=== PATIENT | female | born 1940 | race Caucasian/White ===

== ENCOUNTER → 2021-05-07 | Outpatient (CLI) | payer MEDICARE ==
--- NOTE | 2021-05-07 17:22 | Diagnostic Imaging Report ---
PROCEDURE: US Venous Lower Ext Harman. TECHNIQUE: Multiple real-time grayscale images were obtained over the lower extremities in various projections, bilaterally. Additional duplex Doppler and color Doppler images were also obtained. INDICATION: Elevated D-dimer, deep venous thrombosis. COMPARISON: None available. FINDINGS: Examination is severely limited secondary to patient body habitus and patient motion throughout the exam. Within the limits of the exam, there is normal flow, compression, and augmentation within the visualized deep venous structures of the bilateral lower extremities. A prominent focal fluid collection is noted within the right popliteal fossa measuring 11.6 x 4.6 x 2.8 cm without internal vascularity. IMPRESSION: No evidence of deep venous thrombosis within the bilateral lower extremities within the limits of the exam, though examination is significantly limited. 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 Dictated by: Dictated on workstation # [id number]
== END ==
LOC: RAD 16:28
PROVIDERS: ATTEND Nurse Practitioner Family
DX: M71.21 Synovial cyst of popliteal space [Baker], right knee (principal); R79.1 Abnormal coagulation profile
CPT/HCPCS: 93970

== ENCOUNTER 2021-05-30 15:00 | Emergency (ER) | payer MEDICARE ==
[2021-05-30] MEDS ORDERED: RT-ALBUTEROL/IPRATROPIUM 3 ML (DUONEB) VIAL INH ONE (15:45)
--- NOTE | 2021-05-30 15:50 | ED Respiratory ---
General Chief Complaint: Respiratory Problems Stated Complaint: POST COVID,RESP FAILURE Source: patient, EMS, [facility] Exam Limitations: no limitations History of Present Illness Date Seen by Provider: May 30, 2021 Time Seen by Provider: 15:35 Initial Comments Here with report of recovering from Covid after infection 2 weeks ago and now with cough and congestion and difficulty with coughing stuff up. She is a resident of [facility]. Apparently she had some difficulty last night and they were considering sending her over then but apparently she got better. This morning, she thought she needed to go but they did not know if they were going to send her in patient states this afternoon that she decided that she was going to go and so they sent her over for evaluation. She is not hypoxic. She does have some wheezes. She does suffer from morbid obesity. She is vaccinated and did have apparently mild infection. She is worried about pne umonia. No fever or chills. She reports eating and drinking okay although food does not taste as well right now. Denies dysuria or problems going to the bathroom. Last bowel movement was yesterday. Reports taking meds as directed. Timing/Duration: week, changing over time Severity: mild, moderate Prior Episodes/Possible Cause: occasional episodes Modifying Factors: Worse With Activity; Improves With Coughing, Improves With Oxygen, Improves With Rest Associated Symptoms: No chest pain/soreness; cough; No fever/chills, No muscle aches, No nasal congestion, No shortness of breath; wheezing Allergies and Home Medications Allergies Coded Allergies: No Known Drug Allergies (Unverified , 05/30/21) Patient Home Medication List Home Medication List Reviewed: Yes Prednisone (Prednisone) 20 Mg Tab, 40 MG PO DAILY Prescribed by: ENMA BROWN on 05/30/21 1971 Review of Systems Review of Systems Constitutional: see HPI EENTM: No nose congestion, No throat pain Respiratory: cough, short of breath Cardiovascular: No no symptoms reported Gastrointestinal: No nausea, No vomiting Genitourinary: no symptoms reported Musculoskeletal: No back pain; muscle pain (Bilateral legs that is chronic) Skin: change in color (Redness to both feet that is apparently chronic with history of cellulitis of the legs.) Psychiatric/Neurological: Anxiety; Denies Headache All Other Systems Reviewed Negative Unless Noted: Yes Past Gimqwmr-Ruagwk-Ejixjh Hx Patient Social History Tobacco Use?: No Smoking Status: Former Smoker Substance use?: No Alcohol Use?: No Immunizations Up To Date Influenza Vaccine Up-to-Date: Yes; Up-to-Date First/Initial COVID19 Vaccinat: OCTOBER 2020 Second COVID19 Vaccination Ramón: DECEMBER 2020 COVID19 Vaccine [employer]: RA[facility] Past Medical History Surgeries: Yes Section, Gallbladder Respiratory: Yes COPD Cardiac: Yes Psychosocial: Yes Depression Integumentary: Yes (Cellulitis of the left lower) Physical Exam Vital Signs - First Documented 05/30/21 15:05 Temp 36.2 Pulse 79 Resp 20 B/P (MAP) 141/66 (91) Pulse Ox 98 O2 Delivery Nasal Cannula O2 Flow Rate 4.00 Capillary Refill : Height: '" Weight: lbs. oz. kg; BMI Method: General Appearance: mild distress, obese HEENT: PERRL/EOMI, pharynx normal Neck: full range of motion, supple Respiratory: no accessory muscle use, wheezing (Few scattered wheezes) Cardiovascular: regular rate, rhythm, no murmur Gastrointestinal: non tender, soft Extremities: non-tender, normal inspection Neurologic/Psychiatric: alert, oriented x 3 Skin: normal color, warm/dry Focused Exam Lactate Level 05/30/21 15:35: Lactic Acid Level 1.09 Lactic Acid Level Laboratory Tests Test 05/30/21 15:35 Lactic Acid Level 1.09 MMOL/L (0.50-2.00) Progress/Results/Core Measures Suspected Sepsis SIRS Temperature: Pulse: Respiratory Rate: Laboratory Tests 05/30/21 15:35: White Blood Count 5.5 Blood Pressure / Mean: 05/30/21 15:35: Lactic Acid Level 1.09 Laboratory Tests 05/30/21 15:35: Creatinine 0.76, INR Comment 1.0, Platelet Count 255, Total Bilirubin 0.6 Results/Orders Lab Results Laboratory Tests Test 05/30/21 15:35 Range/Units White Blood Count 5.5 4.3-11.0 10^3/uL Red Blood Count 4.72 3.80-5.11 10^6/uL Hemoglobin 13.6 11.5-16.0 g/dL Hematocrit 42 35-52 % Mean Corpuscular Volume 89 80-99 fL Mean Corpuscular Hemoglobin 29 25-34 pg Mean Corpuscular Hemoglobin Concent 32 32-36 g/dL Red Cell Distribution Width 13.3 10.0-14.5 % Platelet Count 255 130-400 10^3/uL Mean Platelet Volume 9.7 9.0-12.2 fL Immature Granulocyte % (Auto) 1 % Neutrophils (%) (Auto) 73 42-75 % Lymphocytes (%) (Auto) 15 12-44 % Monocytes (%) (Auto) 9 0-12 % Eosinophils (%) (Auto) 2 0-10 % Basophils (%) (Auto) 0 0-10 % Neutrophils # (Auto) 4.0 1.8-7.8 10^3/uL Lymphocytes # (Auto) 0.8 L 1.0-4.0 10^3/uL Monocytes # (Auto) 0.5 0.0-1.0 10^3/uL Eosinophils # (Auto) 0.1 0.0-0.3 10^3/uL Basophils # (Auto) 0.0 0.0-0.1 10^3/uL Immature Granulocyte # (Auto) 0.1 0.0-0.1 10^3/uL Prothrombin Time 13.4 12.2-14.7 SEC INR Comment 1.0 0.8-1.4 Activated Partial Thromboplast Time 32 24-35 SEC Sodium Level 128 L 135-145 MMOL/L Potassium Level 4.0 3.6-5.0 MMOL/L Chloride Level 90 L 98-107 MMOL/L Carbon Dioxide Level 26 21-32 MMOL/L Anion Gap 12 5-14 MMOL/L Blood Urea Nitrogen 13 7-18 MG/DL Creatinine 0.76 0.60-1.30 MG/DL Estimat Glomerular Filtration Rate 79 BUN/Creatinine Ratio 17 Glucose Level 102 70-105 MG/DL Lactic Acid Level 1.09 0.50-2.00 MMOL/L Calcium Level 8.5 8.5-10.1 MG/DL Corrected Calcium 8.9 8.5-10.1 MG/DL Total Bilirubin 0.6 0.1-1.0 MG/DL Aspartate Amino Transf (AST/SGOT) 62 H 5-34 U/L Alanine Aminotransferase (ALT/SGPT) 44 0-55 U/L Alkaline Phosphatase 84 40-136 U/L Total Protein 6.7 6.4-8.2 GM/DL Albumin 3.5 3.2-4.5 GM/DL Procalcitonin 0.08 <0.10 NG/ML My Orders Orders - ENMA BROWN MD Albuterol/Ipra Inhalation Soln (Duoneb I (05/30/21 15:45) Svn Small Volume Nebulizer (05/30/21 15:43) Ns Iv 500 Ml (Sodium Chloride 0.9%) (05/30/21 16:30) Prednisone Tablet (Deltasone Tablet) (05/30/21 17:00) Medications Given in ED Current Medications Medications Dose Ordered Sig/Barb Route Start Time Stop Time Status Last Admin Dose Admin Sodium Chloride 500 ml @ 0 mls/hr Q0M ONCE IV 05/30/21 16:30 05/30/21 16:31 DC 05/30/21 16:41 500 MLS/HR Vital Signs/I&O 05/30/21 05/30/21 05/30/21 05/30/21 15:05 15:05 15:48 16:36 Temp 36.2 Pulse 79 Resp 20 B/P (MAP) 141/66 (91) Pulse Ox 98 98 95 O2 Delivery Nasal Cannula Nasal Cannula Nasal Cannula O2 Flow Rate 4.00 4.00 4.00 4.00 4.00 Capillary Refill : Progress Note : Progress Note Seen and evaluated. We will check labs and x-ray. DuoNeb ordered. Monitor patient. 1650: Prednisone 40 mg p.o. ordered. Normal saline 500 mL bolus ordered. Chest x-ray and labs look okay other than slightly low sodium for which we gave the normal saline bolus for. It is not low enough that requires hospitalization. Chest x-ray did show some mild cardiomegaly with mild central vascular congestion. I did discuss with the patient that her chest x-ray does not show a pneumonia. She is likely having COPD exacerbation and we will treat for that. [facility] with return precautions. Order for albuterol neb treatment every 6 hours as needed wheezing ordered and sent to [facility]. Patient verbalized understanding instructions and agreement with plan. Copy of chart sent to Dr. Mon's office Diagnostic Imaging Diagonstic Imaging: Xray Plain Films/CT/US/NM/MRI: chest Comments [facility] [place], [place] NAME: SHARON FUENTES REC#: [id number] PT STATUS: REG ER : 1940 PHYSICIAN: MOY DOTY [employer] ADMIT DATE: 05/30/21/ER Signed Date of Exam:05/30/21 CHEST 1 VIEW, AP/PA ONLY INDICATION: Shortness of breath. COMPARISON: None. FINDINGS: Single view of the chest demonstrates mild cardiac enlargement with central vascular congestion. There is no pneumothorax or large effusion. Osseous structures are age appropriate. IMPRESSION: Cardiac enlargement with central vascular congestion. Dictated by: Dictated on workstation # [id number] Dict: 05/30/21 1548 Trans: 05/30/21 1557 [id number] Interpreted by: ROSE HODGSON Electronically signed by: ROSE HODGSON 05/30/21 1557 Departure Impression Primary Impression: COPD exacerbation Additional Impression: Post-COVID syndrome Disposition: HOME, SELF-CARE Condition: Stable Departure-Patient Inst. Decision time for Depature: 16:55 Patient Instructions: Exacerbation of COPD, COVID-19 (DC) Add. Discharge Instructions: All discharge instructions reviewed with patient and/or family. Voiced understanding. Take medications as directed. Use albuterol nebulizer treatment every 6 hours a s needed for wheezing or cough. Follow-up with your doctor early next week for recheck and further evaluation. Return for worse pain, fever, vomiting, weakness, breathing problems or other concerns as needed. Scripts Prednisone (Prednisone) 20 Mg Tab 40 MG PO DAILY, #10 TAB 0 Refills Prov: ENMA BROWN MD 05/30/21 Copy Copies To 1: TATYANA MON MD, TIMOTHY D MD May 30, 2021 15:50
[2021-05-30 15:54] LABS: BASOPHILS % (AUTO) 0 % (0-10); EOSINOPHILS # (AUTO) 0.1 10^3/uL (0.0-0.3); EOSINOPHILS % (AUTO) 2 % (0-10); HEMATOCRIT 42 % (35-52); HEMOGLOBIN 13.6 g/dL (11.5-16.0); LYMPHOCYTES # (AUTO) 0.8 10^3/uL (1.0-4.0); LYMPHOCYTES % (AUTO) 15 % (12-44); MEAN CORPUSCULAR HEMOGLOBIN 29 pg (25-34); MEAN CORPUSCULAR HGB CONC 32 g/dL (32-36); MEAN CORPUSCULAR VOLUME 89 fL (80-99); MEAN PLATELET VOLUME 9.7 fL (9.0-12.2); MONOCYTES # (AUTO) 0.5 10^3/uL (0.0-1.0); MONOCYTES % (AUTO) 9 % (0-12); NEUTROPHILS % (AUTO) 73 % (42-75); PLATELET COUNT 255 10^3/uL (130-400); WHITE BLOOD COUNT 5.5 10^3/uL (4.3-11.0)
[2021-05-30 16:06] LABS: ALBUMIN 3.5 GM/DL (3.2-4.5)
[2021-05-30 16:08] LABS: CALCIUM 8.5 MG/DL (8.5-10.1); PROTHROMBIN TIME PATIENT 13.4 SEC (12.2-14.7)
[2021-05-30 16:09] LABS: TOTAL PROTEIN 6.7 GM/DL (6.4-8.2)
[2021-05-30 16:11] LABS: BILIRUBIN,TOTAL 0.6 MG/DL (0.1-1.0)
[2021-05-30 16:12] LABS: CREATININE SERUM 0.76 MG/DL (0.60-1.30)
[2021-05-30] MEDS ORDERED: NS IV 500 ML 500 ML IV ONE (16:30)
[2021-05-30] MEDS ORDERED: PRD20T PO (16:55)
[2021-05-30] MEDS ORDERED: predniSONE 20 MG TAB PO ONE (17:00)
[2021-05-30 17:06] VITALS: BP 159/66
== END 2021-05-30 17:58 | disposition home or self-care (01) ==
LOC: EDUNIT# 15:00 → ER 15:01
DX: J44.1 Chronic obstructive pulmonary disease with (acute) exacerbation (principal); U09.9 Post COVID-19 condition, unspecified; E66.9 Obesity, unspecified; Z87.891 Personal history of nicotine dependence
CPT/HCPCS: 36415; 71045; 80053; 83605; 84145; 85025; 85610; 85730; 87040; 94640

== ENCOUNTER 2021-12-02 05:31 | Outpatient (CLI) | payer MEDICARE ==
[~2021-12-02] VITALS: Ht 170.2 cm; Wt 151.8 kg
[~2021-12-02 05:31] MED LIST: PRD20T PO
[2021-12-02] MEDS ORDERED: AMLO-251 PO (14:56)
[2021-12-02] MEDS ORDERED: HYDR25TA4 PO (14:56)
[2021-12-02] MEDS ORDERED: CYCL10TA25 PO (14:56)
[2021-12-02] MEDS ORDERED: RIVA2.5T5 PO (14:56)
[2021-12-02] MEDS ORDERED: ACHD5005 PO (14:56)
[2021-12-02] MEDS ORDERED: ATEN100T PO (14:56)
[2021-12-02] MEDS ORDERED: ASPI-999 PO (14:56)
[2021-12-02] MEDS ORDERED: ALPR0.25 PO (14:56)
[2021-12-02] MEDS ORDERED: BUDE10.2 IH (14:56)
[2021-12-02] MEDS ORDERED: CALC-250 PO (14:56)
[2021-12-02] MEDS ORDERED: ESCI20TA39 PO (14:56)
[2021-12-02] MEDS ORDERED: TIOT4MIS2 IH (14:56)
== END 2021-12-02 14:56 | disposition home or self-care (01) ==
LOC: PREOP 05:31
PROVIDERS: ATTEND Specialist
DX: Z01.818 Encounter for other preprocedural examination (principal)

== ENCOUNTER 2021-12-05 07:36 | Day surgery (SDC) | payer MEDICARE ==
[~2021-12-05] VITALS: Ht 170.2 cm; Wt 151.8 kg
[~2021-12-05 07:36] MED LIST changes: +ACHD5005 PO; +ALPR0.25 PO; +AMLO-251 PO; +ASPI-999 PO; +ATEN100T PO; +BUDE10.2 IH; +CALC-250 PO; +CYCL10TA25 PO; +ESCI20TA39 PO; +HYDR25TA4 PO; +RIVA2.5T5 PO; +TIOT4MIS2 IH
[2021-12-05] MEDS: TETRACAINE 0.5% OPHTH SOLN 4 ML BTL (SINGLE DOSE ONLY) OU PRN ×4 (07:57→08:14)
[2021-12-05] MEDS ORDERED: POVIDONE (BETADINE) OPHTH SOLN 5% 30 ML OP ONE (08:00)
[2021-12-05] MEDS ORDERED: acetaZOLAMIDE ER 500 MG CAP (DIAMOX SEQUELS) PO ONE (08:00)
[2021-12-05] MEDS ORDERED: MOXIFLOXACIN OPHTH SOLN 5 MG/ML 0.3 ML SYRINGE OP ONE (08:00)
[2021-12-05] MEDS ORDERED: TIMOLOL MALEATE 0.5% 5 ML (TIMOPTIC) BTL OU PRN (08:00)
[2021-12-05] MEDS: TROPICAMIDE 1% OPH SOLN (MYDRIACYL) 15 ML BTL OP SCH ×3 (08:03→08:14)
[2021-12-05] MEDS: PHENYLEPHRINE 10% OPHTH (NEO-SYN) 5 ML BTL OU SCH ×3 (08:03→08:14)
[2021-12-05 08:06] VITALS: BP 142/70
--- NOTE | 2021-12-05 08:45 | Ophthalmologist Pre-Op Note ---
Pre-Operative Progress Note H&P Reviewed The H&P was reviewed, patient examined and no changes noted. Date H&P Reviewed: Dec 05, 2021 Time H&P Reviewed: 08:45 Pre-Op Dx Cataract, Right Eye ESTELLE CHRISTENSEN MD Dec 05, 2021 08:45
[2021-12-05] MEDS ORDERED: MIDAZOLAM 2 MG/2 ML (VERSED) VIAL ONE (08:47)
--- NOTE | 2021-12-05 09:11 | Ophthalmology Operative Report ---
Cataract removal/placement IOL PREOPERATIVE DIAGNOSIS: Cataract Right Eye POSTOPERATIVE DIAGNOSIS: Cataract Right Eye PROCEDURE: Cataract removal and placement of posterior chamber implant, right eye SURGEON: Apollo Christensen ANESTHESIA: Topical with sedation COMPLICATIONS: None ESTIMATED BLOOD LOSS: Minimal DESCRIPTION OF PROCEDURE: After proper informed consent was obtained, the patient, a 81 female, was taken to the Operating Room and the right eye was anesthetized with tetracaine. The right eye was then prepped and draped in the usual manner. A wire lid speculum was placed. A paracentesis was made at the left hand position. Preservative free lidocaine was injected into the anterior chamber followed by viscoelastic. A clear corneal incision was made in the temporal position. A capsulorrhexis was preformed and the central nuclear and cortical material were removed. The posterior capsule was polished and Shay 17.5 AU00T0 IOL was placed into the capsular bag. The residual viscoelastic was aspirated and balanced saline solution was injected into the anterior chamber. Moxifloxacin was injected into the anterior chamber. The wound was checked and found to be water tight. The patient tolerated the procedure well without complications. APOLLO CHRISTENSEN MD Dec 05, 2021 09:11
[2021-12-05 09:28] VITALS: BP 130/61
--- NOTE | 2021-12-05 17:29 | Anesthesia-General Post-Op ---
MAC Patient Condition Mental Status/LOC: Same as Preop Cardiovascular: Satisfactory Nausea/Vomiting: Absent Respiratory: Satisfactory Pain: Controlled Complications: Absent Post Op Complications Complications None Follow Up Care/Instructions Patient Instructions None needed. Anesthesiology Discharge Order Discharge Order Patient is doing well, no complaints, stable vital signs, no apparent adverse anesthesia problems. No complications reported per nursing. KRYSTLE ALLEN CRNA Dec 05, 2021 17:29
== END 2021-12-05 09:28 | disposition home or self-care (01) ==
LOC: SDC 07:36
PROVIDERS: ATTEND Specialist
DX: H25.9 Unspecified age-related cataract (principal); Z79.01 Long term (current) use of anticoagulants; Z79.82 Long term (current) use of aspirin
CPT/HCPCS: 66984; V2632

== ENCOUNTER 2021-12-16 05:35 | Outpatient (CLI) | payer MEDICARE | END 2021-12-16 10:56 | disposition home or self-care (01) | LOC: PREOP 05:35 | PROVIDERS: ATTEND Specialist | DX: Z01.818 Encounter for other preprocedural examination (principal) ==

== ENCOUNTER 2021-12-19 06:30 | Day surgery (SDC) | payer MEDICARE ==
[~2021-12-19] VITALS: Ht 170.2 cm; Wt 151.8 kg
[2021-12-19 06:45] VITALS: BP 150/79
[2021-12-19] MEDS ORDERED: TIMOLOL MALEATE 0.5% 5 ML (TIMOPTIC) BTL OU PRN (06:45)
[2021-12-19] MEDS ORDERED: MOXIFLOXACIN OPHTH SOLN 5 MG/ML 0.3 ML SYRINGE OP ONE (06:45)
[2021-12-19] MEDS ORDERED: POVIDONE (BETADINE) OPHTH SOLN 5% 30 ML OP ONE (06:45)
[2021-12-19] MEDS ORDERED: MIDAZOLAM 2 MG/2 ML (VERSED) VIAL ONE (06:52)
[2021-12-19] MEDS: TETRACAINE 0.5% OPHTH SOLN 4 ML BTL (SINGLE DOSE ONLY) OU PRN ×4 (06:58→07:18)
[2021-12-19] MEDS: TROPICAMIDE 1% OPH SOLN (MYDRIACYL) 15 ML BTL OP SCH ×3 (07:06→07:18)
[2021-12-19] MEDS: PHENYLEPHRINE 10% OPHTH (NEO-SYN) 5 ML BTL OU SCH ×3 (07:06→07:18)
--- NOTE | 2021-12-19 07:44 | Ophthalmologist Pre-Op Note ---
Pre-Operative Progress Note H&P Reviewed The H&P was reviewed, patient examined and no changes noted. Date H&P Reviewed: Dec 19, 2021 Time H&P Reviewed: 07:44 Pre-Op Dx Cataract, Left Eye ESTELLE CHRISTENSEN MD Dec 19, 2021 07:44
--- NOTE | 2021-12-19 08:06 | Ophthalmology Operative Report ---
Cataract removal/placement IOL PREOPERATIVE DIAGNOSIS: Cataract Left Eye POSTOPERATIVE DIAGNOSIS: Cataract Left Eye PROCEDURE: Cataract removal and placement of posterior chamber implant, left eye SURGEON: Apollo Christensen ANESTHESIA: Topical with sedation COMPLICATIONS: None ESTIMATED BLOOD LOSS: Minimal DESCRIPTION OF PROCEDURE: After proper informed consent was obtained, the patient, a 81 female, was taken to the Operating Room and the left eye was anesthetized with tetracaine. The left eye was then prepped and draped in the usual manner. A wire lid speculum was placed. A paracentesis was made at the left hand position. Preservative free lidocaine was injected into the anterior chamber followed by viscoelastic. A clear corneal incision was made in the temporal position. A capsulorrhexis was preformed and the central nuclear and cortical material were removed. The posterior capsule was polished and an Shay 17.0 AU00T0 was placed into the capsular bag. The residual viscoelastic was aspirated and balanced saline solution was injected into the anterior chamber. Moxifloxacin was injected into the anterior chamber. The wound was checked and found to be water tight. The patient tolerated the procedure well without complications. APOLLO CHRISTENSEN MD Dec 19, 2021 08:06
[2021-12-19 08:15] VITALS: BP 158/69
[2021-12-19] MEDS ORDERED: acetaZOLAMIDE ER 500 MG CAP (DIAMOX SEQUELS) PO ONE (10:00)
--- NOTE | 2021-12-19 14:45 | Anesthesia-General Post-Op ---
MAC Patient Condition Mental Status/LOC: Same as Preop Cardiovascular: Satisfactory Nausea/Vomiting: Absent Respiratory: Satisfactory Pain: Controlled Complications: Absent Post Op Complications Complications None Follow Up Care/Instructions Patient Instructions None needed. Anesthesiology Discharge Order Discharge Order Patient is doing well, no complaints, stable vital signs, no apparent adverse anesthesia problems. No complications reported per nursing. RAGINI GAUTHIER CRNA Dec 19, 2021 14:44
== END 2021-12-19 08:15 ==
LOC: SDC 06:30
PROVIDERS: ATTEND Specialist
DX: H26.9 Unspecified cataract (principal); J44.9 Chronic obstructive pulmonary disease, unspecified; Z99.81 Dependence on supplemental oxygen
CPT/HCPCS: 66984; V2632

== ENCOUNTER → 2022-01-19 | Outpatient (CLI) | payer MEDICARE ==
--- NOTE | 2022-01-19 18:08 | Diagnostic Imaging Report ---
Clinical Indication: Patient with red swollen right leg. Comparison: Bilateral lower extremity venous Doppler ultrasound dated 05/07/2021. Procedure: Ultrasound venous ultrasound of the right lower extremity with multiple real-time grayscale images were obtained in various projections. Additional spectral analysis and color Doppler duple images were also obtained. Findings: The deep venous system is well visualized and is easily compressible. There is no evidence of deep venous thrombosis, valvular incompetence, or significant collateral circulation. There is a 2.6 cm x 1.7 cm x 5.2 cm slightly complex fluid collection in the popliteal fossa region, likely representing a Warner's cyst. Patient previously had a fluid collection in this region measuring 11.6 cm x 4.6 cm x 2.8 cm. Impression: 1: There is no ultrasound Doppler evidence of deep venous thrombosis in the right lower extremity. 2: There is a right popliteal cyst which has decreased in size in the interim. Dictated by: Dictated on workstation # [id number]
== END ==
LOC: RAD 16:30
PROVIDERS: ATTEND Nurse Practitioner Family
DX: M71.21 Synovial cyst of popliteal space [Baker], right knee (principal)

== ENCOUNTER 2022-05-27 21:32 | Inpatient (IN) | payer MEDICARE ==
[~2022-05-27] VITALS: Ht 165.1 cm; Wt 153.1 kg
--- NOTE | 2022-05-27 21:58 | ED General ---
General Chief Complaint: Fever-Adult/Adol Stated Complaint: POSS SEPSIS Source of Information: Patient, [facility] Records History of Present Illness Date Seen by Provider: May 27, 2022 Time Seen by Provider: 21:57 Initial Comments Patient is an 81yo female to the ER with a complaint of hurting all over. She resides at [facility] and apparently has been being treated for cellulitis and UTI - had labs drawn a few days ago - WBC 11K. Started on Macrobid. Chronically bed bound. Noted to have fever today and tachycardia. Staff concerned for "sepsis" and sent her to the ER for eval. Patient is stating that she "can't breathe" - she is on 3L O2 chronically and uses inhalers. No nausea or vomiting. No chest pain. Slight dry cough. She is quite distressed and difficult to get a history from as she is repeatedly saying "please help me" and stating "I'm ready to go". [facility] she is on 0.25mg of xanax Q6 and also chronically anticoagulated on Xarelto at 2.5mg BID for "PVD". Timing/Duration: 1-2 Days Severity: Severe Associated Systoms: Loss of Appetite, Malaise, Nausea/Vomiting (nausea without vomiting), Shortness of Air Allergies and Home Medications Allergies Coded Allergies: No Known Drug Allergies (Unverified , 05/30/21) Patient Home Medication List Home Medication List Reviewed: Yes Acetaminophen (Tylenol Arthritis) 650 Mg Tablet.er, 650 MG PO Q4H PRN for PAIN- MILD (1-4), (Reported) Entered as Reported by: JUAN CARLOS MONROE on 05/28/22 1235 Last Action: Continued Albuterol Sulfate (Albuterol Sulfate) 2.5 Mg/0.5 Ml Vial.neb, 2.5 MG INH Q4H PRN for SHORTNESS OF BREATH, (Reported) Entered as Reported by: JUAN CARLOS MONROE on 05/28/22 1235 Last Action: Held Alprazolam (Xanax) 0.25 Mg Tablet, 0.25 MG PO Q6H PRN for ANXIETY, (Reported) Entered as Reported by: AMBER PALACIO on 12/02/21 5263 Last Action: Continued Amlodipine Besylate (Amlodipine Besylate) 10 Mg Tablet, 10 MG PO HS, (Reported) Entered as Reported by: AMBER PALACIO on 12/02/211455 Last Action: Held Aspirin (Aspirin) 81 Mg Tab.chew, 81 MG PO DAILY, (Reported) Entered as Reported by: AMBER PALACIO on 12/02/211455 Last Action: Held Atenolol (Atenolol) 100 Mg Tablet, 100 MG PO DAILY, (Reported) Entered as Reported by: AMBER PALACIO on 12/02/211455 Last Action: Held Budesonide/Formoterol Fumarate (Symbicort 160-4.5 Mcg Inhaler) 160 Mcg-4.5 Mcg/Actuation Hfa.aer.ad, 2 PUFF IH BID, (Reported) Entered as Reported by: AMBER PALACIO on 12/02/211455 Last Action: Converted Buspirone HCl (Buspirone HCl) 5 Mg Tablet, 5 MG PO 0900,1700, (Reported) Entered as Reported by: JUAN CARLOS MONROE on 05/28/22 123 Last Action: Continued Cholecalciferol (Vitamin D3) (Vitamin D3) 125 Mcg (5000 Unit) Tablet, 125 MCG PO DAILY, (Reported) Entered as Reported by: AMBER PALACIO on 12/02/211455 Last Action: Held Cyclobenzaprine HCl (Cyclobenzaprine HCl) 10 Mg Tablet, 10 MG PO BID, (Reported) Entered as Reported by: AMBER PALACIO on 12/02/211455 Last Action: Held Escitalopram Oxalate (Escitalopram Oxalate) 20 Mg Tablet, 20 MG PO HS, (Reported) Entered as Reported by: AMBER PALACIO on 12/02/211455 Last Action: Converted Furosemide (Furosemide) 20 Mg Tablet, 20 MG PO DAILY, (Reported) Entered as Reported by: JUAN CARLOS MONROE on 05/28/22 123 Last Action: Held Hydrochlorothiazide (Hydrochlorothiazide) 25 Mg Tablet, 25 MG PO DAILY, (Reported) Entered as Reported by: AMBER PALACIO on 12/02/211455 Last Action: Held Hydrocodone/Acetaminophen (Hydrocodone-Acetamin 5-325 mg) 5 Mg-325 Mg Tablet, 1 TAB PO Q6H, (Reported) Entered as Reported by: AMBER PALACIO on 12/02/211455 Last Action: Held Hydrocodone/Acetaminophen (Hydrocodone-Acetamin 7.5-325) 7.5 Mg-325 Mg Tablet, 1 EACH PO Q4H PRN for PAIN-MODERATE (5-7), (Reported) Entered as Reported by: JUAN CARLOS MONROE on 05/28/221234 Last Action: Held Na Phos,M-B/Na Phos,Di-Ba (Fleet Enema) 19 Gram-7 Gram/118 Ml Enema, 133 ML RC DAILY PRN for CONSTIPATION, (Reported) Entered as Reported by: JUAN CARLOS MONROE on 05/28/221234 Last Action: Held Nitrofurantoin Monohyd/M-Cryst (Nitrofurantoin Fajardo-Mcr 100 mg) 100 Mg Capsule, 100 MG PO BID, (Reported) Entered as Reported by: JUAN CARLOS MONROE on 05/28/221234 Last Action: Held Propylene Glycol/Peg 400 (Systane Ultra 0.4-0.3% Eye Drp) 0.3 %-0.4 % Drops, 1 DROP OU TID, (Reported) Entered as Reported by: JUAN CARLOS MONROE on 05/28/221234 Last Action: Held Rivaroxaban (Xarelto) 2.5 Mg Tablet, 2.5 MG PO BID, (Reported) Entered as Reported by: AMBER PALACIO on 12/02/211455 Last Action: Held Tiotropium Dickinson (Spiriva Respimat 2.5MCG/ACTUATION) 2.5 Mcg/Actuation Mist.inhal, 2 PUFF IH 1500, (Reported) Entered as Reported by: AMBER PALACIO on 12/02/211455 Last Action: Converted Trolamine Salicylate (Aspercreme) 10 % Cream..g., 1 APPLIC TP Q6H PRN for PAIN- BREAKTHROUGH, (Reported) Entered as Reported by: JUAN CARLOS MONROE on 05/28/221234 Last Action: Held Review of Systems Review of Systems Constitutional: see HPI EENTM: no symptoms reported Respiratory: cough, dyspnea on exertion, wheezing Cardiovascular: no symptoms reported Gastrointestinal: nausea Genitourinary: decreased output Musculoskeletal: joint pain (chronic), other (body aches) Skin: other (chronic rashes) Psychiatric/Neurological: Anxiety Past Gypeurb-Phtaqh-Ynpmzb Hx Patient Social History Tobacco Use?: No Use of E-Cig and/or Vaping dev: No Substance use?: No Alcohol Use?: No Immunizations Up To Date Influenza Vaccine Up-to-Date: Yes; Up-to-Date First/Initial COVID19 Vaccinat: OCTOBER 2020 Second COVID19 Vaccination Ramón: DECEMBER 2020 Third COVID19 Vaccination Date: NONE COVID[address] Technologist: AKBARDeshawn Tommy Past Medical History Surgeries: Yes Section, Gallbladder Respiratory: Yes COPD Cardiac: Yes Psychosocial: Yes Depression Integumentary: Yes (Cellulitis of the left lower) Physical Exam Vital Signs Vital Signs - First Documented Capillary Refill : Height, Weight, BMI Height: '" Weight: lbs. oz. kg; BMI Method: General Appearance: Anxious, Chronically ill, Moderate Distress, Obese Eyes: Bilateral Eye Normal Inspection, Bilateral Eye PERRL, Bilateral Eye EOMI HEENT: Other (very dry oral mucosa) Neck: Normal Inspection Respiratory: No Accessory Muscle Use, No Respiratory Distress, Wheezing (exp wheezes faint bilaterally; tachypnea) Cardiovascular: Regular Rate, Rhythm, Normal Peripheral Pulses, Tachycardia (130's) Gastrointestinal: Non Tender, Soft Genital/Rectal: Normal Genital Exam Extremity: Swelling (2+ woody edema bilateral LE with erythema to anterior shins, increased warmth) Neurologic/Psychiatric: Alert, No Motor/Sensory Deficits, Other (depressed anxious'/agitated) Skin: Warm/Dry, Other (tactile fever) Focused Exam Sepsis Stage: Severe Sepsis Possible Source: Genitouriary Lactate Level Time of Focused Exam: 23:00 Respiratory: Lungs Clear, Other (tachypnea) Cardiovascular: Regular Rate, Rhythm, Normal Peripheral Pulses Capillary Refill: Less Than 3 Seconds Peripheral Pulses: 1+ Radial Pulses (R), 1+ Radial Pulses (L) Skin: normal color, warm/dry, rash (bilat LE), ulcerations (bilateral LE ankles) Lactic Acid Level Laboratory Tests Test 05/27/22 21:43 05/27/22 23:33 Lactic Acid Level 3.15 MMOL/L (0.50-2.00) *H 3.13 MMOL/L (0.50-2.00) *H Within 3hrs of presentation: Admin fluids, Admin ABX, Blood cultures prior to ABX's, Focus exam, Lactate level Progress/Results/Core Measures Suspected Sepsis SIRS Temperature: Pulse: Respiratory Rate: Blood Pressure / Mean: Laboratory Tests 05/27/22 21:43: INR Comment 1.4 Results/Orders Lab Results Laboratory Tests Test 05/27/22 21:43 05/27/22 23:10 05/27/22 23:33 Range/Units White Blood Count 28.9 H 4.3-11.0 10^3/uL Red Blood Count 4.09 3.80-5.11 10^6/uL Hemoglobin 12.2 11.5-16.0 g/dL Hematocrit 37 35-52 % Mean Corpuscular Volume 91 80-99 fL Mean Corpuscular Hemoglobin 30 25-34 pg Mean Corpuscular Hemoglobin Concent 33 32-36 g/dL Red Cell Distribution Width 14.2 10.0-14.5 % Platelet Count 276 130-400 10^3/uL Mean Platelet Volume 10.1 9.0-12.2 fL Immature Granulocyte % (Auto) 1 % Neutrophils (%) (Auto) 93 H 42-75 % Lymphocytes (%) (Auto) 2 L 12-44 % Monocytes (%) (Auto) 4 0-12 % Eosinophils (%) (Auto) 0 0-10 % Basophils (%) (Auto) 0 0-10 % Neutrophils # (Auto) 26.9 H 1.8-7.8 10^3/uL Lymphocytes # (Auto) 0.5 L 1.0-4.0 10^3/uL Monocytes # (Auto) 1.1 H 0.0-1.0 10^3/uL Eosinophils # (Auto) 0.0 0.0-0.3 10^3/uL Basophils # (Auto) 0.1 0.0-0.1 10^3/uL Immature Granulocyte # (Auto) 0.4 H 0.0-0.1 10^3/uL Neutrophils % (Manual) 77 % Lymphocytes % (Manual) 7 % Monocytes % (Manual) 5 % Band Neutrophils 11 % Microcytosis SLIGHT Prothrombin Time 18.0 H 12.2-14.7 SEC INR Comment 1.4 0.8-1.4 Activated Partial Thromboplast Time 36 H 24-35 SEC Sodium Level 134 L 135-145 MMOL/L Potassium Level 3.5 L 3.6-5.0 MMOL/L Chloride Level 87 L 98-107 MMOL/L Carbon Dioxide Level 31 21-32 MMOL/L Anion Gap 16 H 5-14 MMOL/L Blood Urea Nitrogen 17 7-18 MG/DL Creatinine 1.12 0.60-1.30 MG/DL Estimat Glomerular Filtration Rate 49 BUN/Creatinine Ratio 15 Glucose Level 141 H 70-105 MG/DL Lactic Acid Level 3.15 *H 3.13 *H 0.50-2.00 MMOL/L Calcium Level 9.1 8.5-10.1 MG/DL Corrected Calcium 9.7 8.5-10.1 MG/DL Total Bilirubin 0.8 0.1-1.0 MG/DL Aspartate Amino Transf (AST/SGOT) 56 H 5-34 U/L Alanine Aminotransferase (ALT/SGPT) 62 H 0-55 U/L Alkaline Phosphatase 133 40-136 U/L Total Protein 6.9 6.4-8.2 GM/DL Albumin 3.3 3.2-4.5 GM/DL Urine Color YELLOW Urine Clarity CLOUDY Urine pH 6.0 5-9 Urine Specific [place] 1.025 H 1.016-1.022 Urine Protein TRACE H NEGATIVE Urine Glucose (UA) NEGATIVE NEGATIVE Urine Ketones NEGATIVE NEGATIVE Urine Nitrite NEGATIVE NEGATIVE Urine Bilirubin NEGATIVE NEGATIVE Urine Urobilinogen 0.2 < = 1.0 MG/DL Urine Leukocyte Esterase 2+ H NEGATIVE Urine RBC (Auto) 2+ H NEGATIVE Urine RBC 0-2 /HPF Urine WBC 50-100 H /HPF Urine Squamous Epithelial Cells 2-5 /HPF Urine Crystals NONE /LPF Urine Bacteria MODERATE H /HPF Urine Casts NONE /LPF Urine Mucus SMALL H /LPF Urine Culture Indicated CULTURE PENDING Influenza Type A (RT-PCR) Not Detected Not Detecte Influenza Type B (RT-PCR) Not Detected Not Detecte SARS-CoV-2 RNA (RT-PCR) Not Detected Not Detecte Micro Results Microbiology 05/27/22 Blood Culture - Final, Complete Escherichia coli 05/27/22 Urine Culture - Final, Complete NO GROWTH 05/27/22 Blood Culture - Final, Complete Escherichia coli My Orders Orders - DIANA FIGUEROA MD Cbc With Automated Diff (05/27/22 21:56) Comprehensive Metabolic Panel (05/27/22 21:56) Blood Culture (05/27/22 21:56) Sputum Culture (05/27/22 21:56) Urinalysis (05/27/22 21:56) Urine Culture (05/27/22 21:56) Protime With Inr (05/27/22 21:56) Partial Thromboplastin Time (05/27/22 21:56) Chest 1 View, Ap/Pa Only (05/27/22 21:56) Ed Iv/Invasive Line Start (05/27/22 21:56) Ed Iv/Invasive Line Start (05/27/22 21:56) Vital Signs Adult Sepsis Patie Q15M (05/27/22 21:56) O2 (05/27/22 21:56) Remove Rings In Anticipation O (05/27/22 21:56) Lactic Acid Analyzer (05/27/22 21:56) Albuterol Pre-Mix Nebs (Rt) (Proventil (05/27/22 22:00) Svn Small Volume Nebulizer (05/27/22 21:56) Covid 19 Inhouse Test (05/27/22 21:56) Influenza A And B By Pcr (05/27/22 21:56) Isolation Central Supply Req (05/27/22 21:56) Manual Differential (05/27/22 21:43) Acetaminophen Tablet/Caplet (Tylenol T (05/27/22 22:01) Ns Iv 1000 Ml (Sodium Chloride 0.9%) (05/27/22 23:13) Cefepime Injection (Maxipime Injection) (05/27/22 23:15) Acetaminophen Tablet/Caplet (Tylenol T (05/27/22 23:30) Medications Given in ED Vital Signs/I&O 05/27/22 05/27/22 05/27/22 21:32 21:32 22:06 Temp 38.3 38.3 Pulse 135 Resp 26 B/P (MAP) 169/84 (112) Pulse Ox 98 O2 Delivery Nasal Cannula Nasal Cannula O2 Flow Rate 5.00 3.00 Capillary Refill : Progress Note #1: Time: 23:46 Progress Note Patient seen and evaluated by me, 81-year-old sent over from [facility] chief complaint concern for sepsis. Evaluation today includes physical exam, sepsis labs including CBC, Chem-12, coagulation profile, urinalysis, COVID test, chest x-ray, blood cultures and lactic acid. Differential diagnosis based on history and physical exam includes pneumonia, with increasing O2 requirements patient is currently at 5 L instead of her normal 3 satting 96%. Also differential includes urinary tract infection with sepsis, COVID, influenza, cellulitis. After laboratory studies obtained, CBC pertinent for white count of 28,000 with significant left shift, chemistry shows mild elevation in her liver functions otherwise basically within normal limits. Coag studies PT PTT are little elevated due to Xarelto. UA shows white blood cells and bacteria consistent with UTI. COVID and flu are negative. Chest x-ray is negative for acute infiltrate, lactic acid is greater than 3. Based on the patient's fever of 101, tachycardia, leukocytosis, elevated lactic and urinary tract infection she meets criteria for severe sepsis. Fluids are started, cefepime 1 g every 6 ordered. Case was discussed with Dr. Roberson on for the hospitalist service this evening who accepts the patient for admission. I called [facility] and rehab and spoke with Aleida one of the nurses and she informed me that Annette is a full code, all measures. Progress Note #2: Time: 00:27 Progress Note Noted patient is now tachy in the 160's - Afib on the monitor; previously had been tachy 120's, appeared NS. EKG obtained. confirmed Afib RVR. Cardizem push ordered. No improvement in rate. Will order drip to titrate. Patient is anti- coagulated. ECG Initial ECG Impression Date: May 28, 2022 Initial ECG Impression Time: 00:09 Initial ECG Rate: 140 Initial ECG Rhythm: A Fib/Flutter Initial ECG Impression: Atrial Fibrillation w/RVR Diagnostic Imaging Diagonstic Imaging: Xray Plain Films/CT/US/NM/MRI: chest Comments Chest x-rayinterpreted by adriana obvious infiltrate, poor inspiratory effort, no effusion Departure Communication (Admissions) Time/Spoke to Admitting Phy: 23:[address] Roberson Impression Primary Impression: Severe sepsis Additional Impression: UTI (urinary tract infection) Qualified Codes: N39.0 - Urinary tract infection, site not specified; R31.9 - Hematuria, unspecified Disposition: ADMITTED INPATIENT Condition: Stable Admissions Decision to Admit Reason: Admit from ER (General) Decision to Admit/Date: May 27, 2022 Time/Decision to Admit Time: 23:29 Departure-Patient Inst. Referrals: TATYANA MON MD (PCP/Family) Primary Care Physician DIANA FIGUEROA MD May 27, 2022 21:58
[2022-05-27] MEDS ORDERED: RT-ALBUTEROL SULF 2.5 MG/3 ML PRE-MIX VIAL INH ONE (22:00)
[2022-05-27] MEDS ORDERED: ACETAMINOPHEN 325 MG TABLET ONE (22:01)
[2022-05-27 22:04] LABS: BASOPHILS # (AUTO) 0.1 10^3/uL (0.0-0.1); BASOPHILS % (AUTO) 0 % (0-10); EOSINOPHILS % (AUTO) 0 % (0-10); HEMATOCRIT 37 % (35-52); HEMOGLOBIN 12.2 g/dL (11.5-16.0); LYMPHOCYTES # (AUTO) 0.5 10^3/uL (1.0-4.0); LYMPHOCYTES % (AUTO) 2 % (12-44); MEAN CORPUSCULAR HEMOGLOBIN 30 pg (25-34); MEAN CORPUSCULAR HGB CONC 33 g/dL (32-36); MEAN CORPUSCULAR VOLUME 91 fL (80-99); MEAN PLATELET VOLUME 10.1 fL (9.0-12.2); MONOCYTES # (AUTO) 1.1 10^3/uL (0.0-1.0); MONOCYTES % (AUTO) 4 % (0-12); NEUTROPHILS # (AUTO) 26.9 10^3/uL (1.8-7.8); NEUTROPHILS % (AUTO) 93 % (42-75); PLATELET COUNT 276 10^3/uL (130-400); WHITE BLOOD COUNT 28.9 10^3/uL (4.3-11.0)
[2022-05-27 22:08] LABS: ALBUMIN 3.3 GM/DL (3.2-4.5); POTASSIUM 3.5 MMOL/L (3.6-5.0)
[2022-05-27 22:10] LABS: CALCIUM 9.1 MG/DL (8.5-10.1)
[2022-05-27 22:11] LABS: TOTAL PROTEIN 6.9 GM/DL (6.4-8.2)
[2022-05-27 22:13] LABS: BILIRUBIN,TOTAL 0.8 MG/DL (0.1-1.0); INR 1.4 (0.8-1.4)
[2022-05-27 22:14] LABS: CREATININE SERUM 1.12 MG/DL (0.60-1.30)
[2022-05-27 22:52] LABS: BAND NEUTROPHILS 11 %; LYMPHOCYTES % (MANUAL) 7 %; MICROCYTOSIS SLIGHT; MONOCYTES % (MANUAL) 5 %; NEUTROPHILS % (MANUAL) 77 %
[2022-05-27] MEDS ORDERED: NS IV 1000 ML 1,000 ML IV STA (23:13)
[2022-05-27] MEDS ORDERED: CEFEPIME INJECTION 1,000 MG in NS (IVPB) 50 ML IV ONE (23:15)
[2022-05-27] MEDS ORDERED: ACETAMINOPHEN 325 MG TABLET PO ONE (23:30)
[2022-05-27 23:31] LABS: BILIRUBIN,URINE NEGATIVE (NEGATIVE); CLARITY,URINE CLOUDY; COLOR,URINE YELLOW; GLUCOSE, URINE (UA) NEGATIVE (NEGATIVE); KETONES,URINE NEGATIVE (NEGATIVE); LEUKOCYTE ESTERASE ,URINE 2+ (NEGATIVE); NITRITE,URINE NEGATIVE (NEGATIVE); PROTEIN,URINE TRACE (NEGATIVE)
[2022-05-27 23:35] LABS: RBC,URINE 0-2 /HPF
[2022-05-27 23:36] LABS: BACTERIA,URINE MODERATE /HPF; WBC,URINE 50-100 /HPF
[2022-05-28] MEDS ORDERED: dilTIAZem DRIP PRE-MIX 125 ML IV SCH (00:30)
[2022-05-28] MEDS ORDERED: LORazepam 0.5 MG (ATIVAN) TABLET PO ONE (00:45)
[2022-05-28] MEDS ORDERED: ALPRAZolam 0.25 MG (XANAX) TAB PO ONE (01:00)
[2022-05-28] MEDS ORDERED: EPINEPHrine 1 MG INJECTION 4 MG in NS (IVPB) 248 ML IV SCH (01:45)
[2022-05-28] MEDS: VASOPRESSIN INJECTION 20 UNIT in NS (IVPB) 100 ML IV SCH ×3 (02:00→23:31)
[2022-05-28] MEDS: NOREPINEPHRINE 8 MG/250 ML 250 ML IV SCH ×3 (02:00→19:52)
[2022-05-28] MEDS ORDERED: RT-ALBUTEROL/IPRATROPIUM 3 ML (DUONEB) VIAL INH PRN ×2 (02:00→02:30)
[2022-05-28] MEDS ORDERED: RT-IPRATROPIUM (ATROVENT) 0.5MG/2.5ML AMP IH ONE (02:38)
[2022-05-28] MEDS ORDERED: RT-ALBUTEROL SULF 2.5 MG/3 ML PRE-MIX VIAL ONE (02:38)
--- NOTE | 2022-05-28 02:43 | Tele-ICU Consult ---
History of Present Illness History of Present Illness Date Seen by Provider: May 28, 2022 Time Seen by Provider: 02:40 Date of Admission 05/28/2022 History of Present Illness (Tele-ICU Physician , consultation) Available chart/ vitals / labs / Images reviewed H&P is from ER notes Patient's information available about PMH, allergy reviewed in EMR. ROS as per chart and RN report Video assessment done using teleICU camera, rest of exam as per RN Discussed with RN. She is a 81-year-old female with past medical history of super morbid obesity recently has been treated for cellulitis and UTI and chronically bedbound. She is found to have a fever and a tachycardia and staff at the [facility] concern for sepsis and sent to the emergency room where s he is found to have a atrial fibrillation with rapid ventricular rate. Apparently she has a history of COPD and on chronically 3 L of oxygen. Urine analysis suggestive of a urinary tract infection. She is started on a Cardizem drip and IV antibiotics in the emergency room and subsequently transferred to intensive care unit. She is awake alert and following commands. I made a video visit and I discussed with the CONSUMER MARKETING SPECIALIST. Impression 1. Atrial fibrillation with rapid ventricular rate new onset 2. Urinary tract infection with sepsis 3. Lactic acidosis probably due to sepsis 4. Acute kidney injury due to sepsis 5. Super morbid obesity. Plan of treatment 1. IV antibiotics with the cefepime 2. Resuscitate with fluids 3. Cardizem drip to control heart rate 4. Cardiology consultation 5. Monitor urine and blood cultures 6. DVT prophylaxis. Full dose anticoagulation per cardiology Coordination of care with the bedside consultants and primary care physician. Critical care time 35 minutes Allergies and Home Medications Allergies Coded Allergies: No Known Drug Allergies (Unverified , 05/30/21) Home Medications Alprazolam 0.25 Mg Tablet, 0.25 MG PO Q6H PRN for ANXIETY, (Reported) Amlodipine Besylate 10 Mg Tablet, 10 MG PO HS, (Reported) Aspirin 81 Mg Tab.chew, 81 MG PO DAILY, (Reported) Atenolol 100 Mg Tablet, 100 MG PO DAILY, (Reported) Budesonide/Formoterol Fumarate 160 Mcg-4.5 Mcg/Actuation Hfa.aer.ad, 2 PUFF IH BID, (Reported) Cholecalciferol (Vitamin D3) 125 Mcg (5000 Unit) Tablet, 125 MCG PO DAILY, (Reported) Cyclobenzaprine HCl 10 Mg Tablet, 10 MG PO BID, (Reported) Escitalopram Oxalate 20 Mg Tablet, 20 MG PO HS, (Reported) Hydrochlorothiazide 25 Mg Tablet, 25 MG PO DAILY, (Reported) Hydrocodone/Acetaminophen 5 Mg-325 Mg Tablet, 1 TAB PO Q6H PRN for PAIN-MODERATE (5-7), (Reported) Rivaroxaban 2.5 Mg Tablet, 2.5 MG PO BID, (Reported) Tiotropium Willard 2.5 Mcg/Actuation Mist.inhal, 2 PUFF IH 1700, (Reported) Past Medical/Social/Family Hx Patient Social History Tobacco Use?: No Smoking Status: Former Smoker Smokeless Tobacco Frequency: Never a User Use of E-Cig and/or Vaping dev: No E-Cig and/or Vaping Freq: Never a User Substance use?: No Alcohol Use?: Yes 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 Alcohol Frequency: Rarely Pt stated abuse/neglect: No Immunizations Up To Date Influenza Vaccine Up-to-Date: Yes; Up-to-Date First/Initial COVID19 Vaccinat: OCTOBER 2020 Second COVID19 Vaccination Ramón: DECEMBER 2020 Tetanus Booster (TDap): Unknown Current Status Advance Directives: Yes Advance Directive Location: Family to bring in copy Communicates: Verbally Primary Language: Greek Preferred Spoken Language: Greek Is interpretation needed?: No Sensory deficits: Vision impairment Implanted or Applied Medical D: None Review of Systems Constitutional: see HPI, weakness Other ROS PER RN Focused Exam Lactate Level 05/27/22 21:43: Lactic Acid Level 3.15*H 05/27/22 23:33: Lactic Acid Level 3.13*H 05/28/22 01:55: Lactic Acid Level 4.00*H Height, Weight, BMI Height: '" Weight: lbs. oz. kg; 59.35 BMI Method: Time of Focused Exam: 23:00 Lactic Acid Level Laboratory Tests Test 05/27/22 23:33 05/28/22 01:55 Lactic Acid Level 3.13 MMOL/L (0.50-2.00) *H 4.00 MMOL/L (0.50-2.00) *H Exam Exam Patient acknowledged, consented, and participated in this virtual visit which wa s conducted using real time audio/video Vital Signs Date Time Temp Pulse Resp B/P (MAP) Pulse Ox O2 Delivery O2 Flow Rate FiO2 05/28/22 02:19 141 05/28/22 02:05 165 34 132/83 (99) 92 Nasal Cannula 3.00 05/28/22 01:45 154 32 105/92 (96) 92 Nasal Cannula 3.00 05/28/22 01:40 38.6 152 140/88 (105) Nasal Cannula 3.00 05/28/22 01:04 152 118/90 05/28/22 00:16 141 121/73 05/27/22 22:06 38.3 05/27/22 21:32 Nasal Cannula 3.00 05/27/22 21:32 38.3 135 26 169/84 (112) 98 Nasal Cannula 5.00 I & O 05/28/22 06:59 Intake Total 1050 ml Balance 1050 ml Height & Weight Height: '" Weight: lbs. oz. kg; 59.35 BMI Method: General Appearance: Anxious, Chronically ill, Moderate Distress, Obese HEENT: Other (very dry oral mucosa) Neck: Normal Inspection Respiratory: Lungs Clear, Other (tachypnea) Cardiovascular: Regular Rate, Rhythm, Normal Peripheral Pulses Capillary Refill: Less Than 3 Seconds Peripheral Pulses: 1+ Radial Pulses (R), 1+ Radial Pulses (L) Extremity: Swelling (2+ woody edema bilateral LE with erythema to anterior shins, increased warmth) Neurologic/Psychiatric: Alert, No Motor/Sensory Deficits, Other (depressed anxious'/agitated) Skin: Warm/Dry, Other (tactile fever) Other comments PE PER RN Results Lab Laboratory Tests 05/27/22 21:43 Assessment/Plan Assessment/Plan ABOVE Critical Care: Critically Ill Patient Time spent with patient (mins): 35 KIRSTEN COY MD May 28, 2022 02:43
[2022-05-28] MEDS ORDERED: RT-ALBUTEROL SULF 2.5 MG/3 ML PRE-MIX VIAL INH PRN (03:00)
[2022-05-28] MEDS ORDERED: RT-IPRATROPIUM (ATROVENT) 0.5MG/2.5ML AMP IH PRN (03:00)
[2022-05-28] MEDS: NS IV 1000 ML 1,000 ML IV SCH ×3 (03:20→07:54)
[2022-05-28 05:49] LABS: BASOPHILS # (AUTO) 0.1 10^3/uL (0.0-0.1); BASOPHILS % (AUTO) 0 % (0-10); EOSINOPHILS # (AUTO) 0.1 10^3/uL (0.0-0.3); EOSINOPHILS % (AUTO) 0 % (0-10); HEMATOCRIT 35 % (35-52); HEMOGLOBIN 11.3 g/dL (11.5-16.0); LYMPHOCYTES # (AUTO) 0.6 10^3/uL (1.0-4.0); LYMPHOCYTES % (AUTO) 2 % (12-44); MEAN CORPUSCULAR HEMOGLOBIN 29 pg (25-34); MEAN CORPUSCULAR HGB CONC 32 g/dL (32-36); MEAN CORPUSCULAR VOLUME 90 fL (80-99); MEAN PLATELET VOLUME 10.7 fL (9.0-12.2); MONOCYTES % (AUTO) 7 % (0-12); NEUTROPHILS % (AUTO) 89 % (42-75); PLATELET COUNT 257 10^3/uL (130-400); WHITE BLOOD COUNT 29.3 10^3/uL (4.3-11.0)
--- NOTE | 2022-05-28 05:49 | Diagnostic Imaging Report ---
INDICATION: Shortness of air. Wheezing. COMPARISON: 05/30/2021 FINDINGS: Single frontal radiographic view of the chest was obtained and demonstrates moderate cardiomegaly with [id number] pulmonary vascular congestion and mild diffuse coarse prominence of the interstitium. Lungs show asymmetric elevation of the right hemidiaphragm. There is no large effusion or pneumothorax. Osseous structures show no gross acute abnormalities. IMPRESSION: 1. Cardiomegaly with sequela of CHF including probable interstitial pulmonary edema. Dictated by: Dictated on workstation # [id number]
[2022-05-28 05:57] LABS: ALBUMIN 3.2 GM/DL (3.2-4.5); POTASSIUM 3.1 MMOL/L (3.6-5.0)
[2022-05-28 05:58] LABS: CALCIUM 8.8 MG/DL (8.5-10.1)
[2022-05-28 06:00] LABS: TOTAL PROTEIN 6.4 GM/DL (6.4-8.2)
[2022-05-28 06:01] LABS: BILIRUBIN,TOTAL 0.7 MG/DL (0.1-1.0)
[2022-05-28 06:03] LABS: CREATININE SERUM 0.99 MG/DL (0.60-1.30); PHOSPHORUS 3.3 MG/DL (2.3-4.7)
[2022-05-28 06:06] LABS: MAGNESIUM 1.5 MG/DL (1.6-2.4)
--- NOTE | 2022-05-28 06:07 | Diagnostic Imaging Report ---
INDICATION: Dyspnea. COMPARISON: 05/27/2022 FINDINGS: Single frontal radiographic view of the chest was obtained and demonstrates stable cardiomegaly. There is persistent mild prominence of the pulmonary vasculature and pulmonary interstitium. Lungs continue to show asymmetric elevation of the right hemidiaphragm. There is no large effusion or pneumothorax. IMPRESSION: 1. Persistent cardiomegaly with mild vascular congestion and probable interstitial pulmonary edema. Dictated by: Dictated on workstation # [id number]
[2022-05-28] MEDS: KCL 20 MEQ TAB (K-DUR) PO SCH (06:37)
[2022-05-28] MEDS: MAGNESIUM 1 GM/100 ML IVPB 100 ML IV SCH ×2 (06:37→07:44)
[2022-05-28] MEDS: POTASSIUM CL 10MEQ/50ML IVPB 50 ML IV SCH ×3 (06:38→07:45)
[2022-05-28] MEDS: dilTIAZem DRIP 125 MG/125 ML DRIP IV SCH ×3 (07:15→19:52)
[2022-05-28] MEDS ORDERED: CEFEPIME 1,000 MG/NS 50 ML IVPB IV SCH ×2 (08:00)
[2022-05-28] MEDS: RT-IPRATROPIUM (ATROVENT) 0.5MG/2.5ML AMP IH SCH ×5 (08:03→22:55)
[2022-05-28] MEDS: RT-ALBUTEROL SULF 2.5 MG/3 ML PRE-MIX VIAL INH SCH ×5 (08:03→22:55)
--- NOTE | 2022-05-28 08:41 | Consultation-Cardiology ---
HPI-Cardiology Cardiology Consultation Date of Consultation 05/28/22 Date of Admission Time Seen by Provider: 08:34 Indication: Atrial fibrillation HPI 81 years old lady, admitted with urosepsis, noted to be in atrial fibrillation with rapid ventricular response. Patient was admitted with fever and lethargy. She is wheezing and short of breath. Does not answer questions. History was obtained by reviewing her record. There were no reported chest pain or palpitation, no previous history of atrial fibrillation, patient has underlying morbid obesity Home Medications & Allergies Allergies: Coded Allergies: No Known Drug Allergies (Unverified , 05/30/21) Home Medication List Reviewed: Yes [id number]-Bszhia Hx Patient Social History Employed/Student: retired Smoking Status: Former Smoker Have you traveled recently?: No Alcohol Use?: Yes Past Medical History Discussed below Family Medical History Significant Family History: No Pertinent Family Hx Review of Systems-General Review of Systems Constitutional: see HPI, weakness, other (Unable to provide review of system) EENTM: no symptoms reported Respiratory: wheezing Cardiovascular: no symptoms reported Genitourinary: decreased output Reviewed Test Results Reviewed Test Results Lab Laboratory Tests Test 05/27/22 21:43 05/27/22 23:10 05/27/22 23:33 05/28/22 01:55 Range/Units White Blood Count 28.9 H 4.3-11.0 10^3/uL Red Blood Count 4.09 3.80-5.11 10^6/uL Hemoglobin 12.2 11.5-16.0 g/dL Hematocrit 37 35-52 % Mean Corpuscular Volume 91 80-99 fL Mean Corpuscular Hemoglobin 30 25-34 pg Mean Corpuscular Hemoglobin Concent 33 32-36 g/dL Red Cell Distribution Width 14.2 10.0-14.5 % Platelet Count 276 130-400 10^3/uL Mean Platelet Volume 10.1 9.0-12.2 fL Immature Granulocyte % (Auto) 1 % Neutrophils (%) (Auto) 93 H 42-75 % Lymphocytes (%) (Auto) 2 L 12-44 % Monocytes (%) (Auto) 4 0-12 % Eosinophils (%) (Auto) 0 0-10 % Basophils (%) (Auto) 0 0-10 % Neutrophils # (Auto) 26.9 H 1.8-7.8 10^3/uL Lymphocytes # (Auto) 0.5 L 1.0-4.0 10^3/uL Monocytes # (Auto) 1.1 H 0.0-1.0 10^3/uL Eosinophils # (Auto) 0.0 0.0-0.3 10^3/uL Basophils # (Auto) 0.1 0.0-0.1 10^3/uL Immature Granulocyte # (Auto) 0.4 H 0.0-0.1 10^3/uL Neutrophils % (Manual) 77 % Lymphocytes % (Manual) 7 % Monocytes % (Manual) 5 % Band Neutrophils 11 % Microcytosis SLIGHT Prothrombin Time 18.0 H 12.2-14.7 SEC INR Comment 1.4 0.8-1.4 Activated Partial Thromboplast Time 36 H 24-35 SEC Sodium Level 134 L 135-145 MMOL/L Potassium Level 3.5 L 3.6-5.0 MMOL/L Chloride Level 87 L 98-107 MMOL/L Carbon Dioxide Level 31 21-32 MMOL/L Anion Gap 16 H 5-14 MMOL/L Blood Urea Nitrogen 17 7-18 MG/DL Creatinine 1.12 0.60-1.30 MG/DL Estimat Glomerular Filtration Rate 49 BUN/Creatinine Ratio 15 Glucose Level 141 H 70-105 MG/DL Lactic Acid Level 3.15 *H 3.13 *H 4.00 *H 0.50-2.00 MMOL/L Calcium Level 9.1 8.5-10.1 MG/DL Corrected Calcium 9.7 8.5-10.1 MG/DL Total Bilirubin 0.8 0.1-1.0 MG/DL Aspartate Amino Transf (AST/SGOT) 56 H 5-34 U/L Alanine Aminotransferase (ALT/SGPT) 62 H 0-55 U/L Alkaline Phosphatase 133 40-136 U/L Total Protein 6.9 6.4-8.2 GM/DL Albumin 3.3 3.2-4.5 GM/DL Urine Color YELLOW Urine Clarity CLOUDY Urine pH 6.0 5-9 Urine Specific [place] 1.025 H 1.016-1.022 Urine Protein TRACE H NEGATIVE Urine Glucose (UA) NEGATIVE NEGATIVE Urine Ketones NEGATIVE NEGATIVE Urine Nitrite NEGATIVE NEGATIVE Urine Bilirubin NEGATIVE NEGATIVE Urine Urobilinogen 0.2 < = 1.0 MG/DL Urine Leukocyte Esterase 2+ H NEGATIVE Urine RBC (Auto) 2+ H NEGATIVE Urine RBC 0-2 /HPF Urine WBC 50-100 H /HPF Urine Squamous Epithelial Cells 2-5 /HPF Urine Crystals NONE /LPF Urine Bacteria MODERATE H /HPF Urine Casts NONE /LPF Urine Mucus SMALL H /LPF Urine Culture Indicated CULTURE PENDING Influenza Type A (RT-PCR) Not Detected Not Detecte Influenza Type B (RT-PCR) Not Detected Not Detecte SARS-CoV-2 RNA (RT-PCR) Not Detected Not Detecte Test 05/28/22 04:00 05/28/22 05:58 Range/Units White Blood Count 29.3 H 4.3-11.0 10^3/uL Red Blood Count 3.87 3.80-5.11 10^6/uL Hemoglobin 11.3 L 11.5-16.0 g/dL Hematocrit 35 35-52 % Mean Corpuscular Volume 90 80-99 fL Mean Corpuscular Hemoglobin 29 25-34 pg Mean Corpuscular Hemoglobin Concent 32 32-36 g/dL Red Cell Distribution Width 14.4 10.0-14.5 % Platelet Count 257 130-400 10^3/uL Mean Platelet Volume 10.7 9.0-12.2 fL Immature Granulocyte % (Auto) 2 % Neutrophils (%) (Auto) 89 H 42-75 % Lymphocytes (%) (Auto) 2 L 12-44 % Monocytes (%) (Auto) 7 0-12 % Eosinophils (%) (Auto) 0 0-10 % Basophils (%) (Auto) 0 0-10 % Neutrophils # (Auto) 26.0 H 1.8-7.8 10^3/uL Lymphocytes # (Auto) 0.6 L 1.0-4.0 10^3/uL Monocytes # (Auto) 2.0 H 0.0-1.0 10^3/uL Eosinophils # (Auto) 0.1 0.0-0.3 10^3/uL Basophils # (Auto) 0.1 0.0-0.1 10^3/uL Immature Granulocyte # (Auto) 0.6 H 0.0-0.1 10^3/uL Sodium Level 133 L 135-145 MMOL/L Potassium Level 3.1 L 3.6-5.0 MMOL/L Chloride Level 89 L 98-107 MMOL/L Carbon Dioxide Level 27 21-32 MMOL/L Anion Gap 17 H 5-14 MMOL/L Blood Urea Nitrogen 18 7-18 MG/DL Creatinine 0.99 0.60-1.30 MG/DL Estimat Glomerular Filtration Rate 57 BUN/Creatinine Ratio 18 Glucose Level 109 H 70-105 MG/DL Lactic Acid Level 2.14 *H 1.51 0.50-2.00 MMOL/L Calcium Level 8.8 8.5-10.1 MG/DL Corrected Calcium 9.4 8.5-10.1 MG/DL Phosphorus Level 3.3 2.3-4.7 MG/DL Magnesium Level 1.5 L 1.6-2.4 MG/DL Total Bilirubin 0.7 0.1-1.0 MG/DL Aspartate Amino Transf (AST/SGOT) 54 H 5-34 U/L Alanine Aminotransferase (ALT/SGPT) 58 H 0-55 U/L Alkaline Phosphatase 135 40-136 U/L Total Protein 6.4 6.4-8.2 GM/DL Albumin 3.2 3.2-4.5 GM/DL Physical Exam Physical Exam Vital Signs Vital Signs - First Documented Capillary Refill : Less Than 3 Seconds Height, Weight, BMI Height: '" Weight: lbs. oz. kg; 59.83 BMI Method: General Appearance: Chronically ill, Moderate Distress, Obese Eyes: Bilateral Eye Normal Inspection, Bilateral Eye PERRL, Bilateral Eye EOMI HEENT: Other (very dry oral mucosa) Neck: Normal Inspection Respiratory: Lungs Clear, Other (tachypnea) Cardiovascular: Normal Peripheral Pulses, Irregularly Irregular, Tachycardia Gastrointestinal: Non Tender, Soft Genital/Rectal: Normal Genital Exam Extremity: Swelling (2+ woody edema bilateral LE with erythema to anterior shins, increased warmth) Neurologic/Psychiatric: Alert, No Motor/Sensory Deficits, Other (depressed anxious'/agitated) Skin: Warm/Dry, Other (tactile fever) A/P-Cardiology Admission Diagnosis Urosepsis Lactic acidosis Atrial fibrillation Acute respiratory failure Assessment/Plan Urosepsis, lactic acidosis Receiving IV fluid and antibiotic Managed by medical team Atrial fibrillation with rapid ventricular response, new onset Started on Cardizem drip, continue to titrate to achieve adequate heart rate and blood pressure control Acute renal insufficiency, maintained on oxygen, still actively wheezing, receiving bronchodilators. [id number] score 4, I will start her on Eliquis 5 mg twice daily Lactic acidosis secondary to sepsis, continue with supportive care Acute kidney injury, improving Super morbid obesity. NANCY BUSCH MD May 28, 2022 08:41
[2022-05-28] MEDS ORDERED: ENOXAPARIN 60 MG/0.6 ML (LOVENOX) SYR SC SCH (09:00)
[2022-05-28] MEDS: CEFEPIME 1,000 MG/NS 50 ML IVPB IV SCH ×6 (09:01→20:36)
[2022-05-28] MEDS: APIXABAN 5 MG (ELIQUIS) TABLET PO SCH ×2 (09:01→20:35)
--- NOTE | 2022-05-28 09:12 | History & Physical-Hospitalist ---
PRETTY MCDERMOTT 05/28/22 0912: History of Present Illness HPI/Chief Complaint 81 year old female with PMH of COPD, HTN, PVD, cellulitis, severe obesity, anx iety, and depression presented to the ED yesterday for diffuse pain and difficulty breathing. Per the ED note, she recently had treatment initiated in the out patient setting for cellulitis of her Lower extremities as well as for UTI with macrobid. Upon arrival to the ED patient was tachycardic, tachypnic, febrile, had a WBC elevation of 28.9, and a LA of 3.13. Cefepime was started and while waiting to be admitted for severe sepsis patient was found to be in afib w/ RVR. She received 1 bolus of cardizem in the ED and a cardizem drip was initiated. When seen this morning the patient was markedly wheezing while breathing and extremely sleepy. She is alert to where she is and able to answer simple questions but would fall asleep mid-sentence when trying to obtain a more detailed account of events leading up to presentation. She did reports SOB and tiredness and denied CP, palpitations, abd pain, N/V/D, or abd pain. Date Seen 05/28/22 Time Seen by a Provider: 08:45 Attending Physician Elijah Nowak MD PCP Admitting Physician: Juan Roberson MD Attending Physician: Juan Roberson MD Referring Physician Date of Admission May 27, 2022 at 23:35 Home Medications & Allergies Home Medications Reviewed patient Home Medication Reconciliation performed by pharmacy medication reconciliations electric meter technician and/or nursing. Patients Allergies have been reviewed. Allergies Allergies Coded Allergies No Known Drug Allergies (Unverified05/30/21) Past Dasxkbe-Magxbu-Mrsdgr Hx Patient Social History Employed/Student: retired Tobacco Use?: No Smoking Status: Former Smoker Smokeless Tobacco Frequency: Never a User Use of E-Cig and/or Vaping dev: No Use of E-Cig and/or Vaping Ryley: Never a User Substance use?: No Alcohol Use?: Yes 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 Alcohol Frequency: Rarely Pt feels they are or have been: No Immunizations Up To Date First/Initial COVID19 Vaccinat: OCTOBER 2020 Second COVID19 Vaccination Ramón: DECEMBER 2020 Tetanus Booster (TDap): Unknown Current Status Advance Directives: Yes Advance Directive Location: Family to bring in copy Communicates: Verbally Primary Language: B[place]ian Preferred Spoken Language: B[place]ian Is interpretation needed?: No Sensory deficits: Vision impairment Implanted or Applied Medical D: None Past Medical History Surgeries: Section, Gallbladder COPD Hypertension, Peripheral Vascular Depression Family Medical History No Pertinent Family Hx Review of Systems ROS-Unable to Obtain: Was not able to obtain thorough ROS due to patients alertness Constitutional: fever, other (very tired/fatigued) EENTM: No hearing loss, No vision loss Respiratory: short of breath, wheezing Cardiovascular: No chest pain, No palpitations Gastrointestinal: No abdominal pain, No nausea, No vomiting Physical Exam Physical Exam Vital Signs Vital Signs - First Documented Capillary Refill : Less Than 3 Seconds Height, Weight, BMI Height: '" Weight: lbs. oz. kg; 59.83 BMI Method: General Appearance: Obese, Other (Patient was extremely tired and difficult to be awoken. When awake she was difficuly to understand due to mumbling and continually fell back asleep) Eyes: Bilateral Eye PERRL HEENT: PERRL/EOMI; No Moist Mucous Membranes Neck: Non Tender, Supple Respiratory: Chest Non Tender, No Accessory Muscle Use; No Crackles; Wheezing (significant expiratory wheezing) Cardiovascular: No Murmur, Normal Peripheral Pulses, Irregularly Irregular, Tachycardia Gastrointestinal: Normal Bowel Sounds, Non Tender, Soft Extremity: Normal Capillary Refill, Other (Pitting edema bilaterally with significant warmth and erythema present bilaterally) Neurologic/Psychiatric: Oriented x3, Other (oriented x3 but unable to give account of events prior to admission or stay awake long enough to answer more than simple questions) Skin: Erythema (shins bilaterally) Lymphatic: No Adenopathy Results Results/Procedures Labs Laboratory Tests 05/27/22 21:43 05/28/22 04:00 Patient resulted labs reviewed. Assessment/Plan Admission Diagnosis Severe sepsis secondary to UTI, Afib w/ RVR Assessment and Plan Severe Sepsis secondary to UTI and/or LLE cellulitis -Tachycardic, tachypnic, febrile. leukocytosis, and LA 3.13 upon arrival. Urinalysis revealed likely UTI and was sent for culture. Cefepime 1g Q6hr x5 days initiated. -CXR showed no signs of acute pulmonary infections. Did show mild/mod pulmonary vascular congestion. -Fluid rescuscitation at 125ml/hr Normal saline initiated. Given 1L bolus in ER. -LA improved to 1.51 from 3.13 upon ED presentation Afib w/ RVR -Bolus cardizem given in ED and patient started on cardizem drip, currently at 5mls/hr. Cardiology consulted and managing. -eliquis 5mg PO BID for [id number] score of 4 by cardiology Cellulitis LLE -Will include vancomycin with Cefepime for broad spectrum coverage to include MRSA. Acute on Chronic hypercapnic respiratory Failure secondary to COPD -05/28/22 ABG results: pH 7.41, PaCO2 56, PaO2 72, PaHCO3 35 -Bipap for respiratory support - Albuterol & Ipratropium nebulizer treatments. Methylprednisolone initiated to cover for COPD exacerbation PVD -Patient is on xarelto 2.5mg PO BID in the out patient setting this was switched to eliquis for a fib w/ rvr. -Will use lovenox 40mg SQ QD while admitted for DVT prophylaxis Hyponatremia -Fluid rescuscitation with IV normal Saline 125 ml/hr Hypokalemia -Replacement with KCl 40 meq Tab and KCL 50ml IV per protocol Hypomagnesemia -Mg2+ 2g IV given this morning. Monitor labs Elevated liver enzymes -AST 54 & ALT 58. likely secondayr to severe sepsis vs NAFLD. monitor LYN VARGAS MD 05/28/22 1242: Assessment/Plan Admission Diagnosis Admission Status: Inpatient Order (span 2 midnights) Reason for Inpatient Admission: see below Assessment and Plan Patient admitted to the hospital with multiple acutely decompensated issues. She has severe sepsis secondary to her urinary tract infection but also has erythema and warmth of her legs concerning for cellulitis. We will continue on Cefepime and ad Vanc for MRSA coverage. She remains in atrial fibrillation with RVR and cardiology is consulted. She is on a cardizem gtt. On exam of her lungs she has persistent expiratory wheezes and was placed on BiPAP by eICU due to work of breath. I will add steroids. I confirmed with the patient she is a full code and would be ok with intubation if needed. Supervisory-Addendum Brief Verification & Attestation Participated in pt care: history, MDM, physical Personally performed: exam, history, MDM, supervision of care Care discussed with: Medical Student Procedures: n/a Results interpretation: Verified all documentation Verification and Attestation of Medical Student E/M Service A medical student performed and documented this service in my presence. I reviewed and verified all information documented by the medical student and made modifications to such information, when appropriate. I personally performed the physical exam and medical decision making. Lyn Vargas, May 28, 2022,12:41 PRETTY MCDERMOTT May 28, 2022 09:12 LYN VARGAS MD May 28, 2022 12:42
[2022-05-28 09:36] LABS: ABG BASE EXCESS 9.8 MMOL/L (-2.5-2.5); ABG OXYGEN SATURATION 96 % (94-100); ABG PCO2 56 MMHG (35-45); ABG PH 7.41 (7.37-7.43); ABG PO2 72 MMHG (79-93); ABG TCO2 36.7 MMOL/L (21.0-31.0)
[2022-05-28 09:38] LABS: ALLENS TEST POSITIVE; INSPIRED O2 6 L NC; PATIENT TEMP 36.5; VENTILATOR NO
[2022-05-28 10:06] VITALS: BP 148/79
--- NOTE | 2022-05-28 10:29 | Tele-ICU Progress Note ---
Subjective Date Seen by a Provider: May 28, 2022 Time Seen by a Provider: 10:29 Subjective/Events-last exam (Tele-ICU Physician , Progress Note ) Service provided via interactive audio and video telecommunications E-CARE system to a patient admitted to ICU bed in [facility]. Patient is seen today due to persistent need of ICU care Available chart/ vitals / labs / Images reviewed Video assessment done using teleICU camera, rest of exam as per RN Discussed with RN Events overnight : Afebrile hemodynamically stable Respiratory - I/O = Drips: Pressors- no Consultants: Hospital course: (05.28) Admitted a 81 y/o from DC with severe sepsis UTI and AF/RVR A/P Acute resp failure - BIPAP 15/5 rr 30 40% - placed for WOB , - follow closely , tolerates well A fib RVR - rate 120 with cardizem gtt - Eliquis -ECHO pending -cards follow UTI, sepsis - vitals stable , consider to decrease IVF - cont to cont , cx pending BONIFACIO - improving AECOPD - contr nebs - ? need for steroids Possble PNA - neg cov , fly Somnolence - TME Chronic hypoxic ( on 3 L ) resp failure and chronic hypercarbic failure - with Super morbid obesity. and COPD Lines : periph , (Central Line Necessity Reviewed) Hardy: + OG: Nutrition: Analgesia: Anxiety/ delirium VTE Prophylaxis: eliquis Stress Ulcer Prophylaxis: na Plans in collaboration with bedside consultants and IM MDs. Discussed with RN to reach out if any questions or concerns A total of 33 minutes of critical care time was devoted to this patient today, required to treat and/or prevent further deterioration of critical care condition ( as above ) . I am remotely monitoring this patient from another state. I am unable to do the bedside exam, and history/physical and pertinent information is taken from other notes in the computer and bedside staff. Sepsis Event Evaluation Height, Weight, BMI Height: '" Weight: lbs. oz. kg; 59.83 BMI Method: Focused Exam Lactate Level 05/28/22 01:55: Lactic Acid Level 4.00*H 05/28/22 04:00: Lactic Acid Level 2.14*H 05/28/22 05:58: Lactic Acid Level 1.51 Time of Focused Exam: 23:00 Exam Exam Patient acknowledged, consented, and participated in this virtual visit which was conducted using real time audio/video Vital Signs Date Time Temp Pulse Resp B/P (MAP) Pulse Ox O2 Delivery O2 Flow Rate FiO2 05/28/22 10:06 NIV Bilevel 40.00 05/28/22 10:06 112 31 100 40.00 05/28/22 10:00 120 18 148/79 (102) 99 Nasal Cannula 4.00 05/28/22 09:32 94 Nasal Cannula 3.00 05/28/22 09:00 116 29 168/81 (110) 95 Nasal Cannula 4.00 05/28/22 08:00 122 27 166/91 (116) 97 Nasal Cannula 4.00 05/28/22 07:37 36.8 05/28/22 07:15 112 148/79 05/28/22 07:00 108 58 160/88 (112) 96 Nasal Cannula 4.00 05/28/22 07:00 123 05/28/22 06:00 126 25 138/76 (96) 95 Nasal Cannula 4.00 05/28/22 05:00 130 21 116/69 (85) 91 Nasal Cannula 4.00 05/28/22 04:00 129 28 126/74 (91) 92 Nasal Cannula 4.00 05/28/22 04:00 91 Nasal Cannula 6.00 05/28/22 03:31 37.3 Nasal Cannula 4.00 05/28/22 03:00 142 28 139/82 (101) 92 Nasal Cannula 3.00 05/28/22 02:43 94 Nasal Cannula 3.00 05/28/22 02:19 141 05/28/22 02:05 165 34 132/83 (99) 92 Nasal Cannula 3.00 05/28/22 01:45 91 Nasal Cannula 3.00 05/28/22 01:45 154 32 105/92 (96) 92 Nasal Cannula 3.00 05/28/22 01:40 38.6 152 140/88 (105) Nasal Cannula 3.00 05/28/22 01:30 38.4 162 30 149/100 98 Nasal Cannula 3.00 05/28/22 01:04 152 118/90 05/28/22 00:16 141 121/73 05/27/22 22:06 38.3 05/27/22 21:32 Nasal Cannula 3.00 1/25/23 21:32 38.3 135 26 169/84 (112) 98 Nasal Cannula 5.00 I & O 05/28/22 06:59 Intake Total 1050 ml Output Total 230 ml Balance 820 ml Height & Weight Height: '" Weight: lbs. oz. kg; 59.83 BMI Method: General Appearance: Obese, Other (Patient was extremely tired and difficult to be awoken. When awake she was difficuly to understand due to mumbling and continually fell back asleep) HEENT: PERRL/EOMI; No Moist Mucous Membranes Neck: Non Tender, Supple Respiratory: Chest Non Tender, No Accessory Muscle Use; No Crackles; Wheezing (significant expiratory wheezing) Cardiovascular: No Murmur, Normal Peripheral Pulses, Irregularly Irregular, Tachycardia Capillary Refill: Less Than 3 Seconds Peripheral Pulses: 1+ Radial Pulses (R), 1+ Radial Pulses (L) Extremity: Normal Capillary Refill, Other (Pitting edema bilaterally with significant warmth and erythema present bilaterally) Neurologic/Psychiatric: Oriented x3, Other (oriented x3 but unable to give account of events prior to admission or stay awake long enough to answer more than simple questions) Skin: Erythema (shins bilaterally) Lymphatic: No Adenopathy Results Lab Laboratory Tests 05/27/22 21:43 05/28/22 04:00 Assessment/Plan Assessment/Plan 1 MADDI MEDEL MD May 28, 2022 10:29
[2022-05-28] MEDS ORDERED: ACET-2650 PO (12:35)
[2022-05-28] MEDS ORDERED: BUSP5TAB59 PO (12:35)
[2022-05-28] MEDS ORDERED: TROL85CR37 TP (12:35)
[2022-05-28] MEDS ORDERED: ALB0.5V INH (12:35)
[2022-05-28] MEDS ORDERED: NITR100C10 PO (12:35)
[2022-05-28] MEDS ORDERED: FURO20TA4 PO (12:35)
[2022-05-28] MEDS ORDERED: NA P133E22 RC (12:35)
[2022-05-28] MEDS ORDERED: HYDR-3817 PO (12:35)
[2022-05-28] MEDS ORDERED: PROP10DR2 OU (12:35)
[2022-05-28] MEDS ORDERED: VANCOMYCIN INJECTION 0.1 MG in NS (IVPB) 250 ML IV SCH (12:45)
[2022-05-28] MEDS: methylPREDNISolone 125 MG (Solu-MEDROL) VIAL IVP SCH ×3 (13:14→23:34)
[2022-05-28] MEDS ORDERED: VANCOMYCIN 2000 MG/NS 500 ML IVPB IV NR ×2 (13:30)
[2022-05-28 14:27] VITALS: BP 118/73
[2022-05-28] MEDS: ACETAMINOPHEN 500 MG TAB (TYLENOL) PO PRN (17:40)
[2022-05-28] MEDS ORDERED: ALPRAZolam 0.5 MG (XANAX) TAB PO NR (18:30)
[2022-05-28] MEDS: RT--FLUTICASONE/SALMETEROL 232-14 (AIRDUO RespiCLICK) IH SCH (19:19)
[2022-05-28 19:21] VITALS: BP 156/78
[2022-05-28] MEDS: METHYL SALICYLATE/MENTHOL (BENGAY, MUSCLE RUB) 3 OZ TUBE TP PRN (20:36)
[2022-05-28] MEDS: MICONAZOLE 2% POWDER (DESENEX AF) 90 GM TOP SCH (20:37)
[2022-05-28] MEDS ORDERED: NON-FORMULARY MEDICATION 1 EA EA (Escitalopram Oxalate 20 MG) PO SCH (21:00)
[2022-05-28] MEDS ORDERED: NON-FORMULARY MEDICATION 1 EA EA (Budesonide/Formoterol Fumarate (Symbicort 160-4.5 Mcg In IH SCH (21:00)
[2022-05-28 22:55] VITALS: BP 132/70
[2022-05-29] MEDS: CEFEPIME 1,000 MG/NS 50 ML IVPB IV SCH ×4 (01:51→08:39)
[2022-05-29] MEDS: VANCOMYCIN 1 GM/NS 250 ML IVPB IV SCH ×4 (01:52→14:06)
[2022-05-29 02:52] VITALS: BP 137/76
[2022-05-29] MEDS: RT-IPRATROPIUM (ATROVENT) 0.5MG/2.5ML AMP IH SCH ×6 (02:52→23:21)
[2022-05-29] MEDS: RT-ALBUTEROL SULF 2.5 MG/3 ML PRE-MIX VIAL INH SCH ×6 (02:52→23:21)
[2022-05-29] MEDS: dilTIAZem DRIP 125 MG/125 ML DRIP IV SCH (03:55)
[2022-05-29 03:56] LABS: BASOPHILS % (AUTO) 0 % (0-10); HEMOGLOBIN 11.5 g/dL (11.5-16.0); MEAN CORPUSCULAR VOLUME 90 fL (80-99)
[2022-05-29 03:58] LABS: EOSINOPHILS # (AUTO) 1.5 10^3/uL (0.0-0.3); EOSINOPHILS % (AUTO) 8 % (0-10); HEMATOCRIT 35 % (35-52); LYMPHOCYTES # (AUTO) 0.5 10^3/uL (1.0-4.0); LYMPHOCYTES % (AUTO) 3 % (12-44); MEAN CORPUSCULAR HEMOGLOBIN 29 pg (25-34); MEAN CORPUSCULAR HGB CONC 33 g/dL (32-36); MEAN PLATELET VOLUME 10.4 fL (9.0-12.2); MONOCYTES # (AUTO) 0.4 10^3/uL (0.0-1.0); MONOCYTES % (AUTO) 2 % (0-12); NEUTROPHILS # (AUTO) 16.6 10^3/uL (1.8-7.8); NEUTROPHILS % (AUTO) 86 % (42-75); PLATELET COUNT 227 10^3/uL (130-400); WHITE BLOOD COUNT 19.3 10^3/uL (4.3-11.0)
[2022-05-29 04:11] LABS: ALBUMIN 3.1 GM/DL (3.2-4.5); POTASSIUM 3.6 MMOL/L (3.6-5.0)
[2022-05-29 04:12] LABS: CALCIUM 8.7 MG/DL (8.5-10.1)
[2022-05-29 04:13] LABS: TOTAL PROTEIN 6.5 GM/DL (6.4-8.2)
[2022-05-29 04:15] LABS: BILIRUBIN,TOTAL 0.5 MG/DL (0.1-1.0)
[2022-05-29 04:17] LABS: CREATININE SERUM 0.82 MG/DL (0.60-1.30); PHOSPHORUS 2.4 MG/DL (2.3-4.7)
[2022-05-29 04:20] LABS: MAGNESIUM 2.2 MG/DL (1.6-2.4)
[2022-05-29] MEDS: NOREPINEPHRINE 8 MG/250 ML 250 ML IV SCH ×3 (04:22→20:34)
[2022-05-29] MEDS: KCL 20 MEQ TAB (K-DUR) PO SCH (05:06)
[2022-05-29] MEDS: POTASSIUM CL 10MEQ/50ML IVPB 50 ML IV SCH ×3 (05:06→06:08)
[2022-05-29] MEDS: MAGNESIUM 1 GM/100 ML IVPB 100 ML IV SCH (05:06)
[2022-05-29] MEDS: methylPREDNISolone 125 MG (Solu-MEDROL) VIAL IVP SCH ×4 (06:07→23:11)
[2022-05-29] MEDS: NS IV 500 ML 500 ML IV PRN (06:08)
[2022-05-29 07:17] VITALS: BP 156/76
[2022-05-29] MEDS: MICONAZOLE 2% POWDER (DESENEX AF) 90 GM TOP SCH ×2 (08:39→20:33)
[2022-05-29] MEDS: busPIRone 5 MG (BUSPAR) TAB PO SCH ×2 (08:39→17:19)
[2022-05-29] MEDS: APIXABAN 5 MG (ELIQUIS) TABLET PO SCH ×2 (08:39→20:33)
[2022-05-29] MEDS: VASOPRESSIN INJECTION 20 UNIT in NS (IVPB) 100 ML IV SCH ×2 (10:10→22:13)
--- NOTE | 2022-05-29 10:20 | Tele-ICU Progress Note ---
Subjective Date Seen by a Provider: May 29, 2022 Time Seen by a Provider: 10:19 Subjective/Events-last exam (Tele-ICU Physician , Progress Note ) Service provided via interactive audio and video telecommunications E-CARE system to a patient admitted to ICU bed in [facility]. Patient is seen today due to persistent need of ICU care Available chart/ vitals / labs / Images reviewed Video assessment done using teleICU camera, rest of exam as per RN Discussed with RN Events overnight : Afebrile hemodynamically stable Respiratory - 30% I/O = pos Drips: Pressors- no Consultants: Hospital course: (05.28) Admitted a 81 y/o from [place] with severe sepsis UTI and AF/RVR 05/29 - BIPAP 15/5 rr 20 30%- LOVES nippv , trying VT 100% 15L A/P Acute resp failure - 03/28 BIPAP 15/5 rr 30 40% - placed for WOB 05/29 - BIPAP 15/5 rr 20 30%- LOVES nippv , trying VT 100% 15L - will try NIPPV overnight , and wean down O2 needs daytime . - cont nebs , steroids , will attempt diuresis latter today if vitals stable A fib RVR - cardizem gtt _ starting PO today - Eliquis -ECHO EF 45-5-% -cards follow Pulm HTN - ECHO 05/28 - RVSP 50 mmHg - try to diuresis UTI, sepsis with BACTEREMIA ( presumed E coli ) - cont cefepime ? d/c vanco , await sens BONIFACIO -normalized AECOPD - contr nebs - on IV steroids - ? to po tomorrow [place] PNA - neg cov , fly Somnolence - TME , improved Chronic hypoxic ( on 3 L ) resp failure and chronic hypercarbic failure - with Super morbid obesity. and COPD Lines : periph , (Central Line Necessity Reviewed) Hardy: + OG: Nutrition: PO - doing well Analgesia: Anxiety/ delirium VTE Prophylaxis: eliquis Stress Ulcer Prophylaxis: na Plans in collaboration with bedside consultants and IM MDs. Discusse with Dr Vargas Discussed with RN to reach out if any questions or concerns A total of 33 minutes of critical care time was devoted to this patient today, required to treat and/or prevent further deterioration of critical care condition ( as above ) . I am remotely monitoring this patient from another state. I am unable to do the bedside exam, and history/physical and pertinent information is taken from other notes in the computer and bedside staff. Sepsis Event Evaluation Height, Weight, BMI Height: '" Weight: lbs. oz. kg; 60.71 BMI Method: Focused Exam Lactate Level 05/28/22 01:55: Lactic Acid Level 4.00*H 05/28/22 04:00: Lactic Acid Level 2.14*H 05/28/22 05:58: Lactic Acid Level 1.51 Time of Focused Exam: 23:00 Exam Exam Patient acknowledged, consented, and participated in this virtual visit which was conducted using real time audio/video Vital Signs Date Time Temp Pulse Resp B/P (MAP) Pulse Ox O2 Delivery O2 Flow Rate FiO2 05/29/22 09:10 Vapotherm 15.00 100.00 05/29/22 09:00 121 26 141/80 (100) 92 NIV Bilevel 30.00 05/29/22 08:00 NIV Bilevel 30 05/29/22 08:00 106 27 148/76 (100) 93 NIV Bilevel 30.00 05/29/22 07:45 36.2 05/29/22 07:17 91 25 93 30.00 05/29/22 07:00 88 05/29/22 07:00 91 10 136/68 (90) 94 NIV Bilevel 30.00 05/29/22 06:00 105 10 129/79 (96) 94 NIV Bilevel 30.00 05/29/22 05:00 99 14 134/70 (91) 92 NIV Bilevel 30.00 05/29/22 04:22 93 137/76 05/29/22 04:00 87 21 123/67 (85) 92 NIV Bilevel 30.00 05/29/22 03:59 91 NIV Bilevel 30 05/29/22 03:56 36.2 92 NIV Bilevel 30.00 05/29/22 03:55 93 137/76 05/29/22 03:00 102 26 135/66 (89) 93 NIV Bilevel 30.00 05/29/22 02:52 93 24 92 30.00 05/29/22 02:00 97 20 137/76 (96) 91 NIV Bilevel 30.00 05/29/22 01:00 96 13 141/76 (97) 92 NIV Bilevel 30.00 05/29/22 01:00 91 05/28/22 23:35 36.5 110 13 123/63 (83) 92 NIV Bilevel 30.00 05/28/22 23:35 92 NIV Bilevel 30 05/28/22 23:31 98 132/70 05/28/22 23:00 108 21 120/68 (85) 92 NIV Bilevel 30.00 05/28/22 22:55 98 20 92 30.00 05/28/22 22:00 111 29 132/70 (90) 92 NIV Bilevel 30.00 05/28/22 21:00 105 27 157/81 (106) 92 NIV Bilevel 30.00 05/28/22 19:56 93 NIV Bilevel 30 05/28/22 19:54 36.7 107 11 127/66 (86) 93 NIV Bilevel 30.00 05/28/22 19:52 105 156/78 05/28/22 19:52 105 156/78 05/28/22 19:21 105 28 92 30.00 05/28/22 19:20 NIV Bilevel 30 05/28/22 19:00 96 05/28/22 19:00 118 24 127/66 (86) 92 NIV Bilevel 30.00 05/28/22 18:00 114 42 150/74 (99) 91 NIV Bilevel 30.00 05/28/22 17:50 NIV Bilevel 30.00 05/28/22 17:26 Vapotherm 15.00 100.00 05/28/22 17:00 114 23 139/109 (119) NIV Bilevel 30.00 05/28/22 16:00 36.9 05/28/22 16:00 109 30 140/87 (104) NIV Bilevel 30.00 05/28/22 16:00 94 NIV Bilevel 30 05/28/22 15:00 117 24 136/59 (84) 95 NIV Bilevel 30.00 05/28/22 14:36 NIV Bilevel 30.00 05/28/22 14:27 107 33 97 30.00 05/28/22 14:15 NIV Bilevel 40.00 05/28/22 14:00 Nasal Cannula 6.00 05/28/22 14:00 118 38 154/86 (108) 97 NIV Bilevel 40.00 05/28/22 13:00 108 25 153/73 (99) 98 NIV Bilevel 40.00 05/28/22 13:00 109 05/28/22 12:52 109 150/72 05/28/22 12:00 109 24 150/72 (98) 97 NIV Bilevel 40.00 05/28/22 12:00 94 NIV Bilevel 40 05/28/22 11:31 114 160/79 05/28/22 11:17 36.2 05/28/22 11:00 113 30 142/84 (103) 99 NIV Bilevel 40.00 05/28/22 10:35 109 150/72 I & O 05/29/22 07:00 Intake Total 2785 ml Output Total 925 ml Balance 1860 ml Height & Weight Height: '" Weight: lbs. oz. kg; 60.71 BMI Method: General Appearance: Obese, Other (Patient was extremely tired and difficult to be awoken. When awake she was difficuly to understand due to mumbling and continually fell back asleep) HEENT: PERRL/EOMI; No Moist Mucous Membranes Neck: Non Tender, Supple Respiratory: Chest Non Tender, No Accessory Muscle Use; No Crackles; Wheezing (significant expiratory wheezing) Cardiovascular: No Murmur, Normal Peripheral Pulses, Irregularly Irregular, Tachycardia Capillary Refill: Less Than 3 Seconds Peripheral Pulses: 1+ Radial Pulses (R), 1+ Radial Pulses (L) Extremity: Normal Capillary Refill, Other (Pitting edema bilaterally with significant warmth and erythema present bilaterally) Neurologic/Psychiatric: Oriented x3, Other (oriented x3 but unable to give account of events prior to admission or stay awake long enough to answer more than simple questions) Skin: Erythema (shins bilaterally) Lymphatic: No Adenopathy Results Lab Laboratory Tests 05/27/22 21:43 05/28/22 04:00 05/29/22 03:14 Assessment/Plan Assessment/Plan 1 MADDI MEDEL MD May 29, 2022 10:20
[2022-05-29] MEDS: RT--FLUTICASONE/SALMETEROL 232-14 (AIRDUO RespiCLICK) IH SCH ×2 (11:28→23:21)
[2022-05-29] MEDS: UMECLIDINIUM BROMIDE (INCRUSE ELLIPTA) 7'S IH SCH (11:28)
[2022-05-29] MEDS ORDERED: cefTRIAXone 2,000 MG in NS (IVPB) 50 ML IV SCH (12:00)
--- NOTE | 2022-05-29 12:14 | Progress Note - Hospitalist ---
Subjective HPI/CC On Admission Date Seen by Provider: May 29, 2022 81 year old female with PMH of COPD, HTN, PVD, cellulitis, severe obesity, anxiety, and depression presented to the ED yesterday for diffuse pain and difficulty breathing. Per the ED note, she recently had treatment initiated in the out patient setting for cellulitis of her Lower extremities as well as for UTI with macrobid. Upon arrival to the ED patient was tachycardic, tachypnic, fe brile, had a WBC elevation of 28.9, and a LA of 3.13. Cefepime was started and while waiting to be admitted for severe sepsis patient was found to be in afib w/ RVR. She received 1 bolus of cardizem in the ED and a cardizem drip was initiated. When seen this morning the patient was markedly wheezing while breathing and extremely sleepy. She is alert to where she is and able to answer simple questions but would fall asleep mid-sentence when trying to obtain a more detailed account of events leading up to presentation. She did reports SOB and tiredness and denied CP, palpitations, abd pain, N/V/D, or abd pain. Subjective/Events-last exam Pt reports doing much better today. No complaints. Breathing improved. Still on BiPAP. Discussed plan to trial off of it today. She reports being anxious to come off. I reassured her she is in the ICU and we will monitor her respiratory status very closely. Focused Exam Lactate Level 05/28/22 01:55: Lactic Acid Level 4.00*H 05/28/22 04:00: Lactic Acid Level 2.14*H 05/28/22 05:58: Lactic Acid Level 1.51 Time of Focused Exam: 23:00 Objective Exam Vital Signs Vital Signs Date Time Temp Pulse Resp B/P (MAP) Pulse Ox O2 Delivery O2 Flow Rate FiO2 05/29/22 12:43 111 05/29/22 12:11 36.8 05/29/22 12:00 22 121/74 (90) 96 Vapotherm 15.00 100.00 05/29/22 11:29 100 Capillary Refill : Less Than 3 Seconds General Appearance: No Apparent Distress, Chronically ill, Obese Respiratory: Lungs Clear, No Accessory Muscle Use, Other (on BiPAP) Cardiovascular: Regular Rate, Rhythm, No Murmur Neurologic/Psychiatric: Alert, Oriented x3 Results/Procedures Lab Laboratory Tests 05/29/22 03:14 Patient resulted labs reviewed. Assessment/Plan Assessment and Plan Assess & Plan/Chief Complaint Severe Sepsis Doing better today Leukocytosis trended down E coli in blood x2 but not in urine despite moderate bacteria seen on UA in ER Continue IV abx, switch to Rocephin Continue Vanc to cover for cellulitis If no gram positive growth on cultures tomorrow will DC A-fib with RVR Continue on cardizem gtt Eliquis for stroke ppx Cardiology consulted, appreciate recs Acute on Chronic Respiratory failure Did well on BiPAP overnight Will trial off it today May need it prn and HS HTN BP well controlled, trend DVT ppx: Eliquis as above Critical Care Critically Ill Patient LYN CAVANAUGH MD May 29, 2022 12:14
--- NOTE | 2022-05-29 14:23 | Cardiology Progress Note ---
Subjective Date Seen by Provider: May 29, 2022 Time Seen by Provider: 14:21 Subjective/Events-last exam Patient was seen at bedside, mental status is significantly better, responding appropriately to questioning. Still on Vapotherm with respiratory insufficiency Review of Systems General: No Chills, No Night Sweats; Fatigue, Malaise; No Appetite, No Other HEENT: No Head Aches, No Visual Changes, No Eye Pain, No Ear Pain, No Dysphasia, No Sinus Congestion, No Post Nasal Drip, No Sore Throat, No Other Pulmonary: Dyspnea, Cough; No Pleuritic Chest Pain, No Other Cardiovascular: No: Chest Pain, Palpitations, Orthopnea, Paroxysmal Noc. Dyspnea, Edema, Lt Headedness, Other Focused Exam Lactate Level 05/28/22 01:55: Lactic Acid Level 4.00*H 05/28/22 04:00: Lactic Acid Level 2.14*H 05/28/22 05:58: Lactic Acid Level 1.51 Time of Focused Exam: 23:00 Objective-Cardiology Exam Last Set of Vital Signs Vital Signs 05/29/22 05/29/22 05/29/22 12:00 12:11 13:00 Temp 36.8 Pulse 112 Resp 28 B/P (MAP) 133/68 (100) Pulse Ox 91 O2 Delivery Vapotherm O2 Flow Rate 15.00 100.00 FiO2 15 I&O Intake and Output 05/29/22 00:00 Intake Total 3360 ml Output Total 880 ml Balance 2480 ml Intake Oral 90 ml IV Total 3270 ml Output Urine Total 880 ml Daily Weight Change No General: Alert, Oriented X3, Cooperative HEENT: Atraumatic Neck: Supple, No JVD, No Thyromegaly Lungs: Normal Air Movement, Other (Bilateral rhonchi) Heart: Normal S1, Normal S2, No Murmurs, Other (Atrial fibrillation) Abdomen: Normal Bowel Sounds, Soft, No Tenderness, No Hepatosplenomegaly, No Masses Extremities: No Clubbing, No Cyanosis, Normal Pulses, No Tenderness/Swelling, Other (Peripheral) Skin: No Rashes, No Breakdown, No Significant Lesion Neuro: Normal Gait, Normal Speech, Normal Tone, Sensation Intact Psych/Mental Status: Mood NL Results Lab Laboratory Tests 05/29/22 03:14 A/P-Cardiology Admission Diagnosis Urosepsis Lactic acidosis Atrial fibrillation Acute respiratory failure Assessment/Plan Urosepsis, lactic acidosis Improving, responded well to antibiotic and IV fluid Heart rate and blood pressure are more stable Atrial fibrillation with rapid ventricular response, new onset Currently off Cardizem drip, I started on Cardizem 60 every 6 hours, planning to switch her to long-acting Cardizem Tolerating Eliquis. Acute renal insufficiency, currently on Vapotherm. Continue to monitor [id number] score 4, I will start her on Eliquis 5 mg twice daily Lactic acidosis secondary to sepsis, continue with supportive care Acute kidney injury, improving Super morbid obesity. NANCY BUSCH MD May 29, 2022 14:23
[2022-05-29] MEDS ORDERED: NON-FORMULARY MEDICATION 1 EA EA (Tiotropium Bromide (Spiriva Respimat 2.5MCG/ACTUATION) 2 IH SCH (15:00)
[2022-05-29] MEDS: ALPRAZolam 0.25 MG (XANAX) TAB PO PRN ×2 (17:19→23:11)
[2022-05-29] MEDS: METHYL SALICYLATE/MENTHOL (BENGAY, MUSCLE RUB) 3 OZ TUBE TP PRN (20:33)
[2022-05-29] MEDS: ACETAMINOPHEN 500 MG TAB (TYLENOL) PO PRN (22:13)
[2022-05-30] MEDS ORDERED: TROUGH ORDER-PHARMACY XX NR ×2 (00:30→00:45)
[2022-05-30] MEDS: VANCOMYCIN 1 GM/NS 250 ML IVPB IV SCH ×2 (01:35)
[2022-05-30] MEDS: RT-IPRATROPIUM (ATROVENT) 0.5MG/2.5ML AMP IH SCH ×6 (02:10→22:26)
[2022-05-30] MEDS: RT-ALBUTEROL SULF 2.5 MG/3 ML PRE-MIX VIAL INH SCH ×6 (02:10→22:26)
[2022-05-30 02:11] VITALS: BP 147/84
[2022-05-30 03:54] LABS: BASOPHILS % (AUTO) 0 % (0-10); EOSINOPHILS % (AUTO) 0 % (0-10); HEMATOCRIT 35 % (35-52); HEMOGLOBIN 11.3 g/dL (11.5-16.0); LYMPHOCYTES # (AUTO) 0.5 10^3/uL (1.0-4.0); LYMPHOCYTES % (AUTO) 3 % (12-44); MEAN CORPUSCULAR HEMOGLOBIN 29 pg (25-34); MEAN CORPUSCULAR HGB CONC 33 g/dL (32-36); MEAN CORPUSCULAR VOLUME 90 fL (80-99); MEAN PLATELET VOLUME 10.3 fL (9.0-12.2); MONOCYTES # (AUTO) 0.7 10^3/uL (0.0-1.0); MONOCYTES % (AUTO) 4 % (0-12); NEUTROPHILS # (AUTO) 16.8 10^3/uL (1.8-7.8); NEUTROPHILS % (AUTO) 92 % (42-75); PLATELET COUNT 256 10^3/uL (130-400); WHITE BLOOD COUNT 18.2 10^3/uL (4.3-11.0)
[2022-05-30 04:08] LABS: ALBUMIN 3.4 GM/DL (3.2-4.5); POTASSIUM 3.7 MMOL/L (3.6-5.0)
[2022-05-30 04:09] LABS: CALCIUM 9.5 MG/DL (8.5-10.1)
[2022-05-30 04:11] LABS: TOTAL PROTEIN 6.8 GM/DL (6.4-8.2)
[2022-05-30 04:12] LABS: BILIRUBIN,TOTAL 0.4 MG/DL (0.1-1.0)
[2022-05-30 04:14] LABS: CREATININE SERUM 0.91 MG/DL (0.60-1.30); PHOSPHORUS 2.8 MG/DL (2.3-4.7)
[2022-05-30 04:17] LABS: MAGNESIUM 2.4 MG/DL (1.6-2.4)
[2022-05-30] MEDS: KCL 20 MEQ TAB (K-DUR) PO SCH (05:20)
[2022-05-30] MEDS: MAGNESIUM 1 GM/100 ML IVPB 100 ML IV SCH (05:20)
[2022-05-30] MEDS: POTASSIUM CL 10MEQ/50ML IVPB 50 ML IV SCH (05:20)
[2022-05-30] MEDS: methylPREDNISolone 125 MG (Solu-MEDROL) VIAL IVP SCH (06:02)
[2022-05-30 07:06] VITALS: BP 140/84
--- NOTE | 2022-05-30 07:45 | Diagnostic Imaging Report ---
INDICATION: Respiratory distress. Study compared 05/28/2022 FINDINGS: No focal consolidation, failure, effusion or pneumothorax. IMPRESSION: No acute appearing abnormality Dictated by: Dictated on workstation # [id number]
--- NOTE | 2022-05-30 08:22 | Progress Note - Hospitalist ---
Subjective HPI/CC On Admission Date Seen by Provider: May 30, 2022 81 year old female with PMH of COPD, HTN, PVD, cellulitis, severe obesity, anxiety, and depression presented to the ED yesterday for diffuse pain and difficulty breathing. Per the ED note, she recently had treatment initiated in the out patient setting for cellulitis of her Lower extremities as well as for UTI with macrobid. Upon arrival to the ED patient was tachycardic, tachypnic, fe brile, had a WBC elevation of 28.9, and a LA of 3.13. Cefepime was started and while waiting to be admitted for severe sepsis patient was found to be in afib w/ RVR. She received 1 bolus of cardizem in the ED and a cardizem drip was initiated. When seen this morning the patient was markedly wheezing while breathing and extremely sleepy. She is alert to where she is and able to answer simple questions but would fall asleep mid-sentence when trying to obtain a more detailed account of events leading up to presentation. She did reports SOB and tiredness and denied CP, palpitations, abd pain, N/V/D, or abd pain. Subjective/Events-last exam Pt reports feeling better today. Still on BiPAP. Hoping to orer breakfast soon and get off BiPAP. Focused Exam Lactate Level 05/28/22 01:55: Lactic Acid Level 4.00*H 05/28/22 04:00: Lactic Acid Level 2.14*H 05/28/22 05:58: Lactic Acid Level 1.51 Time of Focused Exam: 23:00 Objective Exam Vital Signs Vital Signs Date Time Temp Pulse Resp B/P (MAP) Pulse Ox O2 Delivery O2 Flow Rate FiO2 05/30/22 08:00 101 21 132/88 (93) 94 NIV Bilevel 45.00 05/30/22 07:39 36.3 05/30/22 04:00 15 Capillary Refill : Less Than 3 Seconds General Appearance: No Apparent Distress, Obese Respiratory: Wheezing (scant) Cardiovascular: No Murmur, Irregularly Irregular Gastrointestinal: Normal Bowel Sounds, Non Tender, Soft Neurologic/Psychiatric: Alert, Oriented x3 Results/Procedures Lab Laboratory Tests 05/30/22 03:27 Patient resulted labs reviewed. Assessment/Plan Assessment and Plan Assess & Plan/Chief Complaint Severe Sepsis Continutes to improve Leukocytosis trended down again today E coli in blood x2 but not in urine despite moderate bacteria seen on UA in ER- sensitivities pending still Continue IV abx, switch to Rocephin DC Vanc Change to oral steroids A-fib with RVR Continue oral cardizem Eliquis for stroke ppx Cardiology consulted, appreciate recs Acute on Chronic Respiratory failure Did well on BiPAP overnight May need it prn and HS HTN BP well controlled, trend DVT ppx: Eliquis as above Critical Care Critically Ill Patient LYN CAVANAUGH MD May 30, 2022 8:22 am
[2022-05-30] MEDS: APIXABAN 5 MG (ELIQUIS) TABLET PO SCH ×2 (08:38→20:20)
[2022-05-30] MEDS: busPIRone 5 MG (BUSPAR) TAB PO SCH ×2 (08:41→17:12)
[2022-05-30] MEDS: MICONAZOLE 2% POWDER (DESENEX AF) 90 GM TOP SCH ×2 (08:43→20:20)
--- NOTE | 2022-05-30 08:49 | Tele-ICU Progress Note ---
Subjective Date Seen by a Provider: May 30, 2022 Subjective/Events-last exam This virtual visit was conducted using real time audio/video. Thank you for asking us to see this patient for respiratory insufficiency due to AECOPD, urosepsis. Also afib/RVR, anxiety and delirium. PE: Morbidly obese. VSS. afib 100-110. O2 sat 95% on BiPAP 15/5, 45%. HEENT: No obvious masses, adenopathy or JVD. Chest: clear to auscultation, diminished. CV: Irreg S1 S2 No murmur or added sounds. Abd: Non-tender. Bowel sounds Y. : Unremarkable. Hardy Y. PROGRAMS DIRECTOR/psychiatric: Grossly intact. No obvious focal findings. Extremities: 3+ edema. Capillary refill < 3 seconds. Skin: unremarkable. Results: Elevated WCC 18.2, decreasing, BUN 29, BG 216. Decreased Hb 11.3, Na 132. AB.41/56/72 on 6 LPM. CXR: Poor qulity, hyperinflated, congested. Available chart/ vitals / labs / images reviewed. Video assessment done using teleICU camera, rest of exam as per RN. A/P: Respiratory insufficiency: Continue present management with BiPAP/VT and nebs. Monitor for increasing oxygenation needs and/or need for intubation. Critical Care: critically ill patient. Cont. abx, Eliquis, Cardizem, Buspoar, Celexa. Discussed with RN David. Asked RN to reach out to eICU if any questions or concerns later. Time spent with patient/coordination of care with other health professionals (mins): 20 Sepsis Event Evaluation Height, Weight, BMI Height: '" Weight: lbs. oz. kg; 61.44 BMI Method: Focused Exam Lactate Level 05/28/22 01:55: Lactic Acid Level 4.00*H 05/28/22 04:00: Lactic Acid Level 2.14*H 05/28/22 05:58: Lactic Acid Level 1.51 Time of Focused Exam: 23:00 Exam Exam Patient acknowledged, consented, and participated in this virtual visit which was conducted using real time audio/video Vital Signs Date Time Temp Pulse Resp B/P (MAP) Pulse Ox O2 Delivery O2 Flow Rate FiO2 05/30/22 08:00 101 21 132/88 (93) 94 NIV Bilevel 45.00 05/30/22 07:39 36.3 05/30/22 07:06 96 21 94 45.00 05/30/22 07:00 97 19 140/84 (95) 92 NIV Bilevel 45.00 05/30/22 07:00 99 05/30/22 06:00 92 12 128/71 (90) 94 NIV Bilevel 45.00 05/30/22 05:00 91 18 107/70 (82) 94 NIV Bilevel 45.00 05/30/22 04:45 103 20 108/81 (90) 95 NIV Bilevel 45.00 05/30/22 04:00 95 Vapotherm 15 05/30/22 04:00 36.4 12 NIV Bilevel 45.00 05/30/22 03:00 84 21 137/75 (95) 94 Vapotherm 15.00 100.00 05/30/22 02:11 103 25 94 45.00 05/30/22 02:00 94 25 147/84 (105) 92 Vapotherm 15.00 100.00 05/30/22 01:00 99 05/30/22 01:00 99 30 165/83 (110) 91 Vapotherm 15.00 100.00 05/30/22 00:00 36.2 Vapotherm 15.00 100.00 05/30/22 00:00 112 29 158/82 (107) 93 Vapotherm 15.00 100.00 05/29/22 23:30 93 Vapotherm 15 05/29/22 23:21 94 Vapotherm 15.00 100 05/29/22 23:00 103 29 131/77 (95) 93 Vapotherm 15.00 100.00 05/29/22 22:19 108 29 146/86 (106) 96 Vapotherm 15.00 100.00 05/29/22 22:13 112 154/96 05/29/22 22:07 112 30 154/96 (115) 95 Vapotherm 15.00 100.00 05/29/22 21:00 112 30 145/73 (97) 96 Vapotherm 15.00 100.00 05/29/22 20:34 110 148/80 05/29/22 20:25 95 Vapotherm 15 05/29/22 20:00 114 20 139/75 (96) 94 Vapotherm 15.00 100.00 05/29/22 20:00 36.7 05/29/22 19:00 118 23 154/95 (114) 95 Vapotherm 15.00 100.00 05/29/22 19:00 118 05/29/22 18:44 94 Vapotherm 15.00 100 05/29/22 18:00 110 68 148/80 (99) 93 Vapotherm 15.00 100.00 05/29/22 17:00 113 174/97 (122) 92 Vapotherm 15.00 100.00 05/29/22 16:00 109 23 133/71 (91) 94 Vapotherm 15.00 100.00 05/29/22 16:00 100 Vapotherm 15 05/29/22 16:00 36.6 05/29/22 15:00 111 23 133/77 (88) 91 Vapotherm 15.00 100.00 05/29/22 14:45 93 Vapotherm 15.00 100 05/29/22 14:00 105 34 144/77 (94) 90 Vapotherm 15.00 100.00 05/29/22 13:00 112 28 133/68 (100) 91 Vapotherm 15.00 100.00 05/29/22 12:43 111 05/29/22 12:11 36.8 05/29/22 12:00 100 Vapotherm 15 05/29/22 12:00 112 22 121/74 (90) 96 Vapotherm 15.00 100.00 05/29/22 11:31 Vapotherm 05/29/22 11:30 Vapotherm 05/29/22 11:29 96 Vapotherm 15.00 100 05/29/22 11:00 107 22 122/63 (82) 96 Vapotherm 15.00 100.00 05/29/22 10:00 107 140/70 (93) 95 Vapotherm 15.00 100.00 05/29/22 09:10 Vapotherm 15.00 100.00 05/29/22 09:00 121 26 141/80 (100) 92 NIV Bilevel 30.00 I & O 05/30/22 07:00 Intake Total 1600 ml Output Total 950 ml Balance 650 ml Height & Weight Height: '" Weight: lbs. oz. kg; 61.44 BMI Method: General Appearance: No Apparent Distress, Obese HEENT: PERRL/EOMI; No Moist Mucous Membranes Neck: Non Tender, Supple Respiratory: Wheezing (scant) Cardiovascular: No Murmur, Irregularly Irregular Capillary Refill: Less Than 3 Seconds Peripheral Pulses: 1+ Radial Pulses (R), 1+ Radial Pulses (L) Extremity: Normal Capillary Refill, Other (Pitting edema bilaterally with significant warmth and erythema present bilaterally) Neurologic/Psychiatric: Alert, Oriented x3 Skin: Erythema (shins bilaterally) Lymphatic: No Adenopathy Results Lab Laboratory Tests 05/29/22 03:14 05/30/22 03:27 Assessment/Plan Assessment/Plan See free text. Critical Care: Critically Ill Patient JACOB LIEBERMAN MD May 30, 2022 08:49
[2022-05-30] MEDS ORDERED: MEROPENEM 500 MG in NS (IVPB) 100 ML IV SCH (09:00)
[2022-05-30] MEDS ORDERED: predniSONE 20 MG TAB PO NR (09:00)
[2022-05-30] MEDS: NOREPINEPHRINE 8 MG/250 ML 250 ML IV SCH ×2 (09:35→15:55)
[2022-05-30] MEDS: dilTIAZem DRIP 125 MG/125 ML DRIP IV SCH (09:36)
[2022-05-30] MEDS: VASOPRESSIN INJECTION 20 UNIT in NS (IVPB) 100 ML IV SCH ×2 (09:37→20:27)
--- NOTE | 2022-05-30 09:46 | Cardiology Progress Note ---
Subjective Date Seen by Provider: May 30, 2022 Time Seen by Provider: 09:44 Subjective/Events-last exam Patient was seen at bedside, laying down comfortably, still short of breath. Maintained on Vapotherm Review of Systems General: No Chills, No Night Sweats; Fatigue; No Malaise, No Appetite, No Other HEENT: No Head Aches, No Visual Changes, No Eye Pain, No Ear Pain, No Dysphasia, No Sinus Congestion, No Post Nasal Drip, No Sore Throat, No Other Pulmonary: Dyspnea; No Cough, No Pleuritic Chest Pain, No Other Cardiovascular: No: Chest Pain, Palpitations, Orthopnea, Paroxysmal Noc. Dyspnea, Edema, Lt Headedness, Other Focused Exam Lactate Level 05/28/22 01:55: Lactic Acid Level 4.00*H 05/28/22 04:00: Lactic Acid Level 2.14*H 05/28/22 05:58: Lactic Acid Level 1.51 Time of Focused Exam: 23:00 Objective-Cardiology Exam Last Set of Vital Signs Vital Signs 05/30/22 05/30/22 05/30/22 05/30/22 04:00 07:39 09:00 09:37 Temp 36.3 Pulse 101 Resp 24 B/P (MAP) 116/80 Pulse Ox 95 O2 Delivery NIV Bilevel O2 Flow Rate 45.00 FiO2 15 I&O Intake and Output 05/30/22 00:00 Intake Total 1575 ml Output Total 875 ml Balance 700 ml Intake Oral 950 ml IV Total 625 ml Output Urine Total 875 ml General: Alert, Oriented X3, Cooperative HEENT: Atraumatic Neck: Supple, No JVD, No Thyromegaly Lungs: Normal Air Movement, Other (Bilateral rhonchi) Heart: Normal S1, Normal S2, No Murmurs, Other (Atrial fibrillation) Abdomen: Normal Bowel Sounds, Soft, No Tenderness, No Hepatosplenomegaly, No Masses Extremities: No Clubbing, No Cyanosis, Normal Pulses, No Tenderness/Swelling, Other (Peripheral) Skin: No Rashes, No Breakdown, No Significant Lesion Neuro: Normal Gait, Normal Speech, Normal Tone, Sensation Intact Psych/Mental Status: Mood NL Results Lab Laboratory Tests 05/30/22 03:27 A/P-Cardiology Admission Diagnosis Urosepsis Lactic acidosis Atrial fibrillation Acute respiratory failure Assessment/Plan Urosepsis, lactic acidosis E. coli bacteremia Improving, responded well to antibiotic and IV fluid Heart rate and blood pressure are more stable Atrial fibrillation with rapid ventricular response, new onset Tolerating oral Cardizem, I will increase the dose to 90 mg every 6 hours I am planning for KENNETH with electrical cardioversion once she is off the Vapotherm, at this point she cannot tolerate KENNETH and she could progress into full respiratory failure Continue on Eliquis Acute respiratory failure, maintained on Vapotherm Managed by medical team. [id number] score 4, I will start her on Eliquis 5 mg twice daily Lactic acidosis secondary to sepsis, continue with supportive care Acute kidney injury, improving Super morbid obesity. NANCY BSUCH MD May 30, 2022 09:46
[2022-05-30] MEDS: MEROPENEM 500 MG in NS (IVPB) 100 ML IV SCH ×3 (09:48→22:41)
[2022-05-30] MEDS: UMECLIDINIUM BROMIDE (INCRUSE ELLIPTA) 7'S IH SCH (10:31)
[2022-05-30] MEDS: RT--FLUTICASONE/SALMETEROL 232-14 (AIRDUO RespiCLICK) IH SCH ×2 (10:31→22:27)
[2022-05-30] MEDS ORDERED: TROUGH ORDER-PHARMACY XX ONE (12:30)
[2022-05-30] MEDS: ACETAMINOPHEN ER 650 MG (TYLENOL ARTHRITIS) PO PRN (17:12)
[2022-05-30 19:14] VITALS: BP 159/93
[2022-05-30] MEDS: ALPRAZolam 0.25 MG (XANAX) TAB PO PRN (20:20)
[2022-05-30 22:27] VITALS: BP 138/71
[2022-05-31] MEDS: NOREPINEPHRINE 8 MG/250 ML 250 ML IV SCH ×3 (00:02→17:55)
[2022-05-31 02:44] VITALS: BP_SYST 131; BP_SYST 138; BP_DIAS 71; BP_DIAS 77
[2022-05-31] MEDS: RT-IPRATROPIUM (ATROVENT) 0.5MG/2.5ML AMP IH SCH ×6 (02:44→22:54)
[2022-05-31] MEDS: RT-ALBUTEROL SULF 2.5 MG/3 ML PRE-MIX VIAL INH SCH ×6 (02:44→22:54)
[2022-05-31 03:48] LABS: BASOPHILS % (AUTO) 0 % (0-10); EOSINOPHILS % (AUTO) 0 % (0-10); HEMATOCRIT 35 % (35-52); HEMOGLOBIN 11.3 g/dL (11.5-16.0); LYMPHOCYTES # (AUTO) 0.7 10^3/uL (1.0-4.0); LYMPHOCYTES % (AUTO) 5 % (12-44); MEAN CORPUSCULAR HEMOGLOBIN 29 pg (25-34); MEAN CORPUSCULAR HGB CONC 33 g/dL (32-36); MEAN CORPUSCULAR VOLUME 90 fL (80-99); MEAN PLATELET VOLUME 10.4 fL (9.0-12.2); MONOCYTES # (AUTO) 0.8 10^3/uL (0.0-1.0); MONOCYTES % (AUTO) 5 % (0-12); NEUTROPHILS # (AUTO) 13.4 10^3/uL (1.8-7.8); NEUTROPHILS % (AUTO) 89 % (42-75); PLATELET COUNT 271 10^3/uL (130-400); WHITE BLOOD COUNT 15.1 10^3/uL (4.3-11.0)
[2022-05-31 04:05] LABS: ALBUMIN 3.6 GM/DL (3.2-4.5); POTASSIUM 4.1 MMOL/L (3.6-5.0)
[2022-05-31 04:06] LABS: CALCIUM 9.7 MG/DL (8.5-10.1)
[2022-05-31 04:08] LABS: TOTAL PROTEIN 6.9 GM/DL (6.4-8.2)
[2022-05-31 04:09] LABS: BILIRUBIN,TOTAL 0.5 MG/DL (0.1-1.0)
[2022-05-31 04:11] LABS: CREATININE SERUM 0.97 MG/DL (0.60-1.30); PHOSPHORUS 2.9 MG/DL (2.3-4.7)
[2022-05-31 04:14] LABS: MAGNESIUM 2.6 MG/DL (1.6-2.4)
[2022-05-31] MEDS: MEROPENEM 500 MG in NS (IVPB) 100 ML IV SCH ×4 (04:21→21:11)
[2022-05-31 04:22] LABS: ABG BASE EXCESS 7.8 MMOL/L (-2.5-2.5); ABG OXYGEN SATURATION 97 % (94-100); ABG PCO2 53 MMHG (35-45); ABG PO2 72 MMHG (79-93); ABG TCO2 34.6 MMOL/L (21.0-31.0); ALLENS TEST YES-POS; INSPIRED O2 45%; PATIENT TEMP 35.7; VENTILATOR NO
[2022-05-31] MEDS: MAGNESIUM 1 GM/100 ML IVPB 100 ML IV SCH (04:39)
[2022-05-31] MEDS: KCL 20 MEQ TAB (K-DUR) PO SCH (04:39)
[2022-05-31] MEDS: POTASSIUM CL 10MEQ/50ML IVPB 50 ML IV SCH (04:39)
[2022-05-31] MEDS: predniSONE 20 MG TAB PO SCH (06:18)
[2022-05-31 06:34] VITALS: BP 136/84
[2022-05-31] MEDS: dilTIAZem DRIP 125 MG/125 ML DRIP IV SCH (07:50)
[2022-05-31] MEDS: VASOPRESSIN INJECTION 20 UNIT in NS (IVPB) 100 ML IV SCH ×2 (07:50→17:55)
--- NOTE | 2022-05-31 08:00 | Tele-ICU Progress Note ---
Progress Note video rounds completed 81 y/o female with morbid obesity admitted with UTI and a fib/rvr Placed on meropenanam and diltiazem drip. Currenly improving PE: HR : irregular , 80-90 a fib O2 sat: 92% on vapotherm BP 124/61 IMP: a fib Sepsis PLAN: being followed by cardiology sepsis improving, contiunue antibiotics Focused Exam Height, Weight, BMI Height: '" Weight: lbs. oz. kg; 61.37 BMI Method: Time of Focused Exam: 23:00 Labs Laboratory Tests 05/31/22 03:15 Results Results/Procedures Lab Laboratory Tests 05/30/22 03:27 05/31/22 03:15 Results Labs Labs Laboratory Tests 05/31/22 03:15: White Blood Count 15.1H, Red Blood Count 3.87, Hemoglobin 11.3L, Hematocrit 35, Mean Corpuscular Volume 90, Mean Corpuscular Hemoglobin 29, Mean Corpuscular Hemoglobin Concent 33, Red Cell Distribution Width 14.3, Platelet Count 271, Mean Platelet Volume 10.4, Immature Granulocyte % (Auto) 1, Neutrophils (%) (Auto) 89H, Lymphocytes (%) (Auto) 5L, Monocytes (%) (Auto) 5, Eosinophils (%) (Auto) 0, Basophils (%) (Auto) 0, Neutrophils # (Auto) 13.4H, Lymphocytes # (Au to) 0.7L, Monocytes # (Auto) 0.8, Eosinophils # (Auto) 0.0, Basophils # (Auto) 0.0, Immature Granulocyte # (Auto) 0.2H, Sodium Level 136, Potassium Level 4.1, Chloride Level 96L, Carbon Dioxide Level 27, Anion Gap 13, Blood Urea Nitrogen 32H, Creatinine 0.97, Estimat Glomerular Filtration Rate 59, BUN/Creatinine Ratio 33, Glucose Level 168H, Calcium Level 9.7, Corrected Calcium 10.0, Phosphorus Level 2.9, Magnesium Level 2.6H, Total Bilirubin 0.5, Aspartate Amino Transf (AST/SGOT) 47H, Alanine Aminotransferase (ALT/SGPT) 61H, Alkaline Ph osphatase 134, Total Protein 6.9, Albumin 3.6 05/31/22 04:15: Blood Gas Puncture Site L RAD, Blood Gas Patient Temperature 35.7, Arterial Blood pH 7.40, Arterial Blood Partial Pressure CO2 53H, Arterial Blood Partial Pressure O2 72L, Arterial Blood HCO3 33H, Arterial Blood Total CO2 34.6H, Rohini rial Blood Oxygen Saturation 97, Arterial Blood Base Excess 7.8H, Ck Test YE S-POS, Blood Gas Ventilator Setting NO, Blood Gas Inspired Oxygen 45% Microbiology 05/28/22 MRSA Screen - Final, Complete MRSA not isolated 05/27/22 Blood Culture - Final, Complete Escherichia coli 05/27/22 Urine Culture - Final, Complete NO GROWTH JEWELS PRAKASH MD May 31, 2022 08:00
[2022-05-31] MEDS: MICONAZOLE 2% POWDER (DESENEX AF) 90 GM TOP SCH ×2 (08:49→21:08)
[2022-05-31] MEDS: APIXABAN 5 MG (ELIQUIS) TABLET PO SCH ×2 (08:49→21:08)
[2022-05-31] MEDS: busPIRone 5 MG (BUSPAR) TAB PO SCH ×2 (08:49→16:59)
--- NOTE | 2022-05-31 09:31 | Cardiology Progress Note ---
Subjective Date Seen by Provider: May 31, 2022 Time Seen by Provider: 09:30 Subjective/Events-last exam Patient was seen at bedside, still having significant dyspnea. No chest pain. Review of Systems General: No Chills, No Night Sweats; Fatigue, Malaise; No Appetite, No Other HEENT: No Head Aches, No Visual Changes, No Eye Pain, No Ear Pain, No Dysphasia, No Sinus Congestion, No Post Nasal Drip, No Sore Throat, No Other Pulmonary: Dyspnea; No Cough, No Pleuritic Chest Pain, No Other Cardiovascular: No: Chest Pain, Palpitations, Orthopnea, Paroxysmal Noc. Dyspnea, Edema, Lt Headedness, Other Focused Exam Time of Focused Exam: 23:00 Objective-Cardiology Exam Last Set of Vital Signs Vital Signs 05/31/22 05/31/22 05/31/22 08:00 08:13 09:00 Temp 36.4 Pulse 110 Resp 35 B/P (MAP) 172/104 (127) Pulse Ox 86 O2 Delivery Vapotherm O2 Flow Rate 15.00 100.00 FiO2 45 I&O Intake and Output 05/31/22 00:00 Intake Total 1830 ml Output Total 1175 ml Balance 655 ml Intake Oral 1480 ml IV Total 350 ml Output Urine Total 1175 ml General: Alert, Oriented X3, Cooperative HEENT: Atraumatic Neck: Supple, No JVD, No Thyromegaly Lungs: Normal Air Movement, Other (Bilateral rhonchi) Heart: Normal S1, Normal S2, No Murmurs, Other (Atrial fibrillation) Abdomen: Normal Bowel Sounds, Soft, No Tenderness, No Hepatosplenomegaly, No Masses Extremities: No Clubbing, No Cyanosis, Normal Pulses, No Tenderness/Swelling, Other (Peripheral) Skin: No Rashes, No Breakdown, No Significant Lesion Neuro: Normal Gait, Normal Speech, Normal Tone, Sensation Intact Psych/Mental Status: Mood NL Results Lab Laboratory Tests 05/31/22 03:15 A/P-Cardiology Admission Diagnosis Urosepsis Lactic acidosis Atrial fibrillation Acute respiratory failure Assessment/Plan Urosepsis, lactic acidosis E. coli bacteremia Improving, responded well to antibiotic and IV fluid Heart rate and blood pressure are more stable Atrial fibrillation with rapid ventricular response, new onset Tolerating oral Cardizem, I will change the dose to 240 mg twice daily and evaluate tolerance and response I am planning for KENNETH with electrical cardioversion once she is off the Vapotherm, at this point she cannot tolerate KENNETH and she could progress into full respiratory failure Continue on Eliquis Acute hypercapnic, hypoxemic respiratory failure Still having significant shortness of breath and maintained on Vapotherm I will add Lasix and monitor tolerance and response [id number] score 4, started on Eliquis 5 mg twice daily Lactic acidosis secondary to sepsis, continue with supportive care Acute kidney injury, improving Super morbid obesity. NANCY BUSCH MD May 31, 2022 09:31
[2022-05-31] MEDS: FUROSEMIDE 40 MG/4 ML INJ (LASIX) IVP SCH ×2 (09:57→16:56)
[2022-05-31] MEDS: RT--FLUTICASONE/SALMETEROL 232-14 (AIRDUO RespiCLICK) IH SCH ×2 (10:09→18:47)
[2022-05-31] MEDS: UMECLIDINIUM BROMIDE (INCRUSE ELLIPTA) 7'S IH SCH (10:09)
--- NOTE | 2022-05-31 12:55 | Progress Note - Hospitalist ---
PRETTY MCDERMOTT 05/31/22 1255: Subjective HPI/CC On Admission 81 year old female with PMH of COPD, HTN, PVD, cellulitis, severe obesity, anxiety, and depression presented to the ED yesterday for diffuse pain and difficulty breathing. Per the ED note, she recently had treatment initiated in the out patient setting for cellulitis of her Lower extremities as well as for UTI with macrobid. Upon arrival to the ED patient was tachycardic, tachypnic, febrile, had a WBC elevation of 28.9, and a LA of 3.13. Cefepime was started and while waiting to be admitted for severe sepsis patient was found to be in afib w/ RVR. She received 1 bolus of cardizem in the ED and a cardizem drip was initiated. When seen this morning the patient was markedly wheezing while breathing and extremely sleepy. She is alert to where she is and able to answer simple questions but would fall asleep mid-sentence when trying to obtain a more detailed account of events leading up to presentation. She did reports SOB and tiredness and denied CP, palpitations, abd pain, N/V/D, or abd pain. Subjective/Events-last exam Patient was awake sitting in bed when seen this morning. She has a hand catheter in place with gross hematuria present in her hand bag that is new since yesterday. Pt continues to sleep with BiPAP at night and wear vapotherm during the day. Pt. reports having intermittent headaches with SOB and cough that is mildly improved from yesterday. She reports good appetite, but has not had a BM since arrival. She denies CP, palpitations, abd pain, N/V/D, or pain in arms/legs. Review of Systems General: No Chills HEENT: No Head Aches Pulmonary: Dyspnea, Cough Cardiovascular: No: Chest Pain, Palpitations Gastrointestinal: Constipation; No: Nausea, Vomiting, Abdominal Pain, Diarrhea Genitourinary: No Dysuria; Hematuria Focused Exam Time of Focused Exam: 23:00 Objective Exam Vital Signs Vital Signs Date Time Temp Pulse Resp B/P (MAP) Pulse Ox O2 Delivery O2 Flow Rate FiO2 05/31/22 12:41 102 05/31/22 12:16 36.2 05/31/22 12:00 100 Vapotherm 15 05/31/22 12:00 29 139/71 (84) 15.00 100.00 Capillary Refill : Less Than 3 Seconds General Appearance: No Apparent Distress, Obese HEENT: PERRL/EOMI, Moist Mucous Membranes Respiratory: Chest Non Tender, Other (minor expiratory wheezing) Cardiovascular: Regular Rate, Rhythm, No Murmur, Normal Peripheral Pulses Gastrointestinal: Normal Bowel Sounds, Non Tender, Soft Extremity: Normal Capillary Refill, No Calf Tenderness, Other (minor pitting edema bilaterally with non-painful erythema on shins bilaterally) Neurologic/Psychiatric: Alert, Oriented x3, Normal Mood/Affect Skin: Normal Color, Warm/Dry Lymphatic: No Adenopathy Results/Procedures Lab Laboratory Tests 05/31/22 03:15 Patient resulted labs reviewed. Assessment/Plan Assessment and Plan Assess & Plan/Chief Complaint Severe Sepsis secondary to UTI and/or LLE cellulitis -continues to improve. Leukocytosis is trending down. -blood cultures revelaed E. Coli w/ sensitivity to cefepime. -Cefepime 500mg IV Q6hr. Acute on Chronic hypercapnic respiratory Failure secondary to COPD -05/28/22 ABG results: pH 7.41, PaCO2 56, PaO2 72, PaHCO3 35 -Bipap for respiratory support initially, now only at night with vapotherm during the day - Albuterol & Ipratropium nebulizer treatments. Prednisone 40mg PO QD. -05/31/22: continue breathing tx, oral steroids, and respiratory support and ween as appropriate. Afib w/ RVR -Cardizem 90mg PO TID & Eliquis 5mg PO BID -Patient in regular sinus rhythm at this time. Continued management per cardiology and monitor. Hypertension -Well controlled at this time. Hypomagnesemia -Mg 2.6 today. Will monitor Elevated liver enzymes -Mostly unchanged. Likely secondary to severe sepsis vs underlying NAFLD DVT Prophylaxis -Eliquis as stated above LYN VARGAS MD 06/01/22 1254: Assessment/Plan Assessment and Plan Assess & Plan/Chief Complaint Patient reports doing well. Off BiPAP and on Vapotherm and states she is breathing well and feeling better. No complaints. Lasix ordered by cardiology already. Will monitor response. Continue on Merrem per c/s. Supervisory-Addendum Brief Verification & Attestation Participated in pt care: history, MDM, physical Personally performed: exam, history, MDM, supervision of care Care discussed with: Medical Student Procedures: n/a Results interpretation: Verified all documentation Verification and Attestation of Medical Student E/M Service A medical student performed and documented this service in my presence. I reviewed and verified all information documented by the medical student and made modifications to such information, when appropriate. I personally performed the physical exam and medical decision making. Lyn Vargas, Jun 01, 2022,12:52 PRETTY MCDERMOTT May 31, 2022 12:55 LYN VARGAS MD Jun 01, 2022 12:54
[2022-05-31] MEDS: ALPRAZolam 0.25 MG (XANAX) TAB PO PRN (21:08)
[2022-05-31 22:54] VITALS: BP 140/70
[2022-06-01] VITALS (7 sets, daily range): BP systolic 128–156; BP diastolic 71–105
[2022-06-01] MEDS: ALPRAZolam 0.25 MG (XANAX) TAB PO PRN (02:27)
[2022-06-01] MEDS: RT-IPRATROPIUM (ATROVENT) 0.5MG/2.5ML AMP IH SCH ×6 (02:48→22:15)
[2022-06-01] MEDS: RT-ALBUTEROL SULF 2.5 MG/3 ML PRE-MIX VIAL INH SCH ×6 (02:48→22:15)
[2022-06-01 04:18] LABS: BASOPHILS # (AUTO) 0.1 10^3/uL (0.0-0.1); BASOPHILS % (AUTO) 0 % (0-10); EOSINOPHILS % (AUTO) 0 % (0-10); HEMATOCRIT 37 % (35-52); HEMOGLOBIN 11.9 g/dL (11.5-16.0); LYMPHOCYTES # (AUTO) 1.4 10^3/uL (1.0-4.0); LYMPHOCYTES % (AUTO) 7 % (12-44); MEAN CORPUSCULAR HEMOGLOBIN 29 pg (25-34); MEAN CORPUSCULAR HGB CONC 32 g/dL (32-36); MEAN CORPUSCULAR VOLUME 91 fL (80-99); MEAN PLATELET VOLUME 10.7 fL (9.0-12.2); MONOCYTES # (AUTO) 1.5 10^3/uL (0.0-1.0); MONOCYTES % (AUTO) 8 % (0-12); NEUTROPHILS # (AUTO) 16.5 10^3/uL (1.8-7.8); NEUTROPHILS % (AUTO) 83 % (42-75); PLATELET COUNT 306 10^3/uL (130-400); WHITE BLOOD COUNT 19.8 10^3/uL (4.3-11.0)
[2022-06-01 04:28] LABS: ALBUMIN 3.7 GM/DL (3.2-4.5); POTASSIUM 3.5 MMOL/L (3.6-5.0)
[2022-06-01 04:29] LABS: CALCIUM 9.6 MG/DL (8.5-10.1)
[2022-06-01 04:31] LABS: TOTAL PROTEIN 7.3 GM/DL (6.4-8.2)
[2022-06-01 04:32] LABS: BILIRUBIN,TOTAL 0.6 MG/DL (0.1-1.0)
[2022-06-01 04:34] LABS: CREATININE SERUM 1.03 MG/DL (0.60-1.30); PHOSPHORUS 2.8 MG/DL (2.3-4.7)
[2022-06-01] MEDS: VASOPRESSIN INJECTION 20 UNIT in NS (IVPB) 100 ML IV SCH ×2 (05:26→16:55)
[2022-06-01] MEDS: NOREPINEPHRINE 8 MG/250 ML 250 ML IV SCH ×3 (05:26→21:50)
[2022-06-01] MEDS: MEROPENEM 500 MG in NS (IVPB) 100 ML IV SCH ×4 (05:26→21:49)
[2022-06-01] MEDS: KCL 20 MEQ TAB (K-DUR) PO SCH (05:31)
[2022-06-01] MEDS: MAGNESIUM 1 GM/100 ML IVPB 100 ML IV SCH ×3 (05:31→17:24)
[2022-06-01] MEDS: POTASSIUM CL 10MEQ/50ML IVPB 50 ML IV SCH ×6 (05:32→23:17)
[2022-06-01] MEDS: FUROSEMIDE 40 MG/4 ML INJ (LASIX) IVP SCH ×2 (06:11→17:38)
[2022-06-01] MEDS: predniSONE 20 MG TAB PO SCH (06:11)
[2022-06-01 06:55] LABS: ABG OXYGEN SATURATION 99 % (94-100); ABG PO2 123 MMHG (79-93); ABG TCO2 38.9 MMOL/L (21.0-31.0)
[2022-06-01 06:58] LABS: ABG PCO2 77 MMHG (35-45)
[2022-06-01 06:59] LABS: ALLENS TEST YES-POS; INSPIRED O2 80%; VENTILATOR NO
[2022-06-01] MEDS ORDERED: KCL 20 MEQ TAB (K-DUR) PO ONE (07:00)
--- NOTE | 2022-06-01 07:01 | Diagnostic Imaging Report ---
INDICATION: Tachypnea Single AP view of chest is obtained with comparison made to study of 05/30/2022. There are low lung volumes with significant increase in bilateral airspace disease. No pneumothorax is seen. There is no definite pleural fluid. IMPRESSION: Bilateral airspace disease is likely due to pulmonary edema and clinical correlation would be useful. Dictated by: Dictated on workstation # [id number]
[2022-06-01] MEDS: dilTIAZem DRIP 125 MG/125 ML DRIP IV SCH (07:15)
[2022-06-01] MEDS: RT--FLUTICASONE/SALMETEROL 232-14 (AIRDUO RespiCLICK) IH SCH ×2 (07:40→22:14)
[2022-06-01] MEDS ORDERED: DEXMEDETOMIDINE IV ONE (07:57)
[2022-06-01 08:48] LABS: ABG BASE EXCESS 10.4 MMOL/L (-2.5-2.5); ABG OXYGEN SATURATION 98 % (94-100); ABG PCO2 66 MMHG (35-45); ABG PH 7.36 (7.37-7.43); ABG PO2 89 MMHG (79-93)
[2022-06-01 08:49] LABS: ALLENS TEST YES-POS; INSPIRED O2 80%; PATIENT TEMP 37.3; VENTILATOR NO
[2022-06-01] MEDS ORDERED: methylPREDNISolone 40 MG/ML (Solu-MEDROL) VIAL IV ONE (09:00)
--- NOTE | 2022-06-01 09:08 | Cardiology Progress Note ---
Subjective Date Seen by Provider: Jun 01, 2022 Time Seen by Provider: 09:06 Subjective/Events-last exam Patient was seen at bedside, currently on BiPAP Deteriorated yesterday and progressed requiring BiPAP. Slightly tachycardic Review of Systems General: No Chills, No Night Sweats; Fatigue, Malaise; No Appetite, No Other HEENT: No Head Aches, No Visual Changes, No Eye Pain, No Ear Pain, No Dysphasia, No Sinus Congestion, No Post Nasal Drip, No Sore Throat, No Other Pulmonary: Dyspnea; No Cough, No Pleuritic Chest Pain, No Other Cardiovascular: No: Chest Pain, Palpitations, Orthopnea, Paroxysmal Noc. Dyspnea, Edema, Lt Headedness, Other Focused Exam Time of Focused Exam: 23:00 Objective-Cardiology Exam Last Set of Vital Signs Vital Signs 06/01/22 06/01/22 06/01/22 04:00 07:59 08:00 Temp 36.8 Pulse 115 Resp 31 B/P (MAP) 140/84 (102) Pulse Ox 95 O2 Delivery NIV Bilevel O2 Flow Rate 80.00 FiO2 45 I&O Intake and Output 06/01/22 00:00 Intake Total 2140 ml Output Total 2950 ml Balance -810 ml Intake Oral 1840 ml IV Total 300 ml Output Urine Total 2950 ml General: Alert, Oriented X3, Cooperative HEENT: Atraumatic Neck: Supple, No JVD, No Thyromegaly Lungs: Normal Air Movement, Other (Bilateral rhonchi) Heart: Normal S1, Normal S2, No Murmurs, Other (Atrial fibrillation) Abdomen: Normal Bowel Sounds, Soft, No Tenderness, No Hepatosplenomegaly, No Masses Extremities: No Clubbing, No Cyanosis, Normal Pulses, No Tenderness/Swelling, Other (Peripheral) Skin: No Rashes, No Breakdown, No Significant Lesion Neuro: Normal Gait, Normal Speech, Normal Tone, Sensation Intact Psych/Mental Status: Mood NL Results Lab Laboratory Tests 06/01/22 03:50 A/P-Cardiology Admission Diagnosis Urosepsis Lactic acidosis Atrial fibrillation Acute respiratory failure Assessment/Plan Urosepsis, lactic acidosis E. coli bacteremia Improving, responded well to antibiotic and IV fluid Heart rate and blood pressure are more stable Atrial fibrillation with rapid ventricular response, new onset Tolerating oral Cardizem, I will change the dose to 240 mg twice daily and evaluate tolerance and response Cannot tolerate having a KENNETH with cardioversion. She is currently in respiratory failure Acute hypercapnic, hypoxemic respiratory failure Deteriorated over the past 24 hours, currently on BiPAP Started on Lasix 80 mg IV twice daily. Pulmonary edema, fluid overload probably secondary to aggressive IV fluid with sepsis. 2D echo was done on May 28, 2022 with four-chamber dilatation, ejection fraction 45 to 50%, severe pulmonary hypertension with PA pressure 50 to 55 mmHg [id number] score 4, started on Eliquis 5 mg twice daily Lactic acidosis secondary to sepsis, continue with supportive care Acute kidney injury, improving Super morbid obesity. NANCY BUSCH MD Jun 01, 2022 09:08
[2022-06-01] MEDS: APIXABAN 5 MG (ELIQUIS) TABLET PO SCH ×2 (09:57→21:49)
[2022-06-01] MEDS: MICONAZOLE 2% POWDER (DESENEX AF) 90 GM TOP SCH ×2 (09:58→21:49)
[2022-06-01] MEDS: busPIRone 5 MG (BUSPAR) TAB PO SCH ×2 (10:00→17:24)
--- NOTE | 2022-06-01 10:37 | Tele-ICU Progress Note ---
Subjective Date Seen by a Provider: Jun 01, 2022 Time Seen by a Provider: 10:37 Subjective/Events-last exam (Tele-ICU Physician , Progress Note ) Service provided via interactive audio and video telecommunications E-CARE system to a patient admitted to ICU bed in [facility]. Patient is seen today due to persistent need of ICU care Available chart/ vitals / labs / Images reviewed Video assessment done using teleICU camera, rest of exam as per RN Discussed with RN Events overnight : Afebrile hemodynamically stable Respiratory - 30% I/O = pos Drips: Pressors- no Consultants: Hospital course: (05.28) Admitted a 81 y/o from [place] with severe sepsis UTI and AF/RVR 05/29 - BIPAP 15/5 rr 20 30%- LOVES nippv , trying VT 100% 15L 06/01 - 80% , on BIPAP 18/8 rr 26 A/P Acute resp failure - 03/28 BIPAP 15/5 rr 30 40% - now is on BIPAP 18/8 rr 30 - WORSENIG ( did like bipap , tolerated well ) - received lasix 80 this am , cxr wit earl a- monitor respond - cont nebs ,additional dose of steroid x1 A fib - cardizem PO - will try to keep PO , but will see of can tolerate well off bipap to take pills - Eliquis -ECHO EF 45-5-% -cards follow Pulm HTN - ECHO 05/28 - RVSP 50 mmHg - cont diuresis UTI, sepsis with BACTEREMIA ( presumed E coli ) - on merrem BONIFACIO -normalized AECOPD - contr nebs - on po steroids - will give one dose IV steroids today Possble PNA - neg cov , fly Somnolence - TME , improved Chronic hypoxic ( on 3 L ) resp failure and chronic hypercarbic failure - with Super morbid obesity. and COPD Nutritiona - might need NG for feeding Lines : periph , (Central Line Necessity Reviewed) Hardy: + OG: Nutrition: PO - on hold today , reasess Analgesia: Anxiety/ delirium VTE Prophylaxis: eliquis Stress Ulcer Prophylaxis: na Plans in collaboration with bedside consultants and IM MDs. Discusse with Dr Vargas Discussed with RN to reach out if any questions or concerns A total of 33 minutes of critical care time was devoted to this patient today, required to treat and/or prevent further deterioration of critical care condition ( as above ) . I am remotely monitoring this patient from another state. I am unable to do the bedside exam, and history/physical and pertinent information is taken from other notes in the computer and bedside staff. Sepsis Event Evaluation Height, Weight, BMI Height: '" Weight: lbs. oz. kg; 59.83 BMI Method: Focused Exam Time of Focused Exam: 23:00 Exam Exam Patient acknowledged, consented, and participated in this virtual visit which was conducted using real time audio/video Vital Signs Date Time Temp Pulse Resp B/P (MAP) Pulse Ox O2 Delivery O2 Flow Rate FiO2 06/01/22 10:26 114 30 96 80.00 06/01/22 10:05 Vapotherm 40.00 100.00 06/01/22 10:00 114 9 153/105 (121) 95 NIV Bilevel 80.00 06/01/22 09:25 36.8 115 95 06/01/22 09:00 116 23 94 NIV Bilevel 80.00 06/01/22 08:00 115 31 140/84 (102) 95 NIV Bilevel 80.00 06/01/22 07:59 36.8 06/01/22 07:38 131 28 93 80.00 06/01/22 07:15 115 140/84 06/01/22 07:00 131 06/01/22 07:00 125 30 156/97 (116) 93 NIV Bilevel 80.00 06/01/22 06:13 NIV Bilevel 80.00 06/01/22 06:00 112 28 151/89 (109) 90 NIV Bilevel 50.00 06/01/22 05:00 98 28 135/77 (96) 89 NIV Bilevel 50.00 06/01/22 04:00 92 NIV Bilevel 45 06/01/22 04:00 99 36 126/87 (100) 92 NIV Bilevel 50.00 06/01/22 04:00 36.7 NIV Bilevel 50.00 06/01/22 03:00 110 28 145/73 (97) 92 NIV Bilevel 45.00 06/01/22 02:49 101 28 93 50.00 06/01/22 02:00 113 27 152/97 (115) 95 NIV Bilevel 45.00 06/01/22 01:00 94 23 129/71 (90) 95 NIV Bilevel 45.00 06/01/22 01:00 94 06/01/22 00:00 100 27 126/71 (89) 94 NIV Bilevel 45.00 06/01/22 00:00 36.3 05/31/22 23:59 93 NIV Bilevel 45 05/31/22 23:00 85 21 134/75 (94) 97 NIV Bilevel 45.00 05/31/22 22:54 24 98 45.00 05/31/22 22:00 98 32 140/70 (93) 97 NIV Bilevel 45.00 05/31/22 21:00 95 28 140/73 (95) 97 Vapotherm 15.00 100.00 05/31/22 20:00 97 27 150/78 (102) 94 Vapotherm 15.00 100.00 05/31/22 20:00 100 Vapotherm 15 05/31/22 19:25 36.9 05/31/22 19:00 108 05/31/22 19:00 108 24 138/66 (90) 95 Vapotherm 15.00 100.00 05/31/22 18:47 96 Vapotherm 15.00 100 05/31/22 18:00 91 27 149/75 (88) 98 Vapotherm 15.00 100.00 05/31/22 17:00 96 145/74 (109) Vapotherm 15.00 100.00 05/31/22 16:00 93 27 139/77 (102) 95 Vapotherm 15.00 100.00 05/31/22 16:00 100 Vapotherm 15 05/31/22 15:55 96 Vapotherm 15.00 100 05/31/22 15:45 37.1 05/31/22 15:00 98 29 137/74 (92) 94 Vapotherm 15.00 100.00 05/31/22 14:00 98 28 125/56 (83) 84 Vapotherm 15.00 100.00 05/31/22 13:00 102 21 145/75 (91) 90 Vapotherm 15.00 100.00 05/31/22 12:41 102 05/31/22 12:16 36.2 05/31/22 12:00 100 Vapotherm 15 05/31/22 12:00 108 29 139/71 (84) 90 Vapotherm 15.00 100.00 05/31/22 11:00 93 20 143/78 (100) 93 Vapotherm 15.00 100.00 I & O 06/01/22 07:00 Intake Total 2240 ml Output Total 3150 ml Balance -910 ml Height & Weight Height: '" Weight: lbs. oz. kg; 59.83 BMI Method: General Appearance: No Apparent Distress, Obese HEENT: PERRL/EOMI, Moist Mucous Membranes Neck: Normal Inspection Respiratory: Chest Non Tender, Other (minor expiratory wheezing) Cardiovascular: Regular Rate, Rhythm, No Murmur, Normal Peripheral Pulses Capillary Refill: Less Than 3 Seconds Peripheral Pulses: 1+ Radial Pulses (R), 1+ Radial Pulses (L) Extremity: Normal Capillary Refill, No Calf Tenderness, Other (minor pitting edema bilaterally with non-painful erythema on shins bilaterally) Neurologic/Psychiatric: Alert, Oriented x3, Normal Mood/Affect Skin: Normal Color, Warm/Dry Lymphatic: No Adenopathy Results Lab Laboratory Tests 05/31/22 03:15 06/01/22 03:50 Assessment/Plan Assessment/Plan 1 MADDI MEDEL MD Jun 01, 2022 10:37
[2022-06-01] MEDS: UMECLIDINIUM BROMIDE (INCRUSE ELLIPTA) 7'S IH SCH (15:54)
[2022-06-01] MEDS ORDERED: KCL 20 MEQ TAB (K-DUR) PO NR (16:00)
[2022-06-01 17:27] LABS: ABG BASE EXCESS 11.6 MMOL/L (-2.5-2.5); ABG OXYGEN SATURATION 95 % (94-100); ABG PCO2 65 MMHG (35-45); ABG PH 7.38 (7.37-7.43); ABG PO2 67 MMHG (79-93); ABG TCO2 39.1 MMOL/L (21.0-31.0)
[2022-06-01 17:28] LABS: ALLENS TEST YES-POS; INSPIRED O2 45%; PATIENT TEMP 36.5; VENTILATOR NO
--- NOTE | 2022-06-01 17:35 | Progress Note - Hospitalist ---
ADELAIDA RIVASEB 06/01/22 1734: Subjective HPI/CC On Admission Date Seen by Provider: Jun 01, 2022 Time Seen by Provider: 11:35 81 year old female with PMH of COPD, HTN, PVD, cellulitis, severe obesity, anxiety, and depression presented to the ED yesterday for diffuse pain and difficulty breathing. Per the ED note, she recently had treatment initiated in the out patient setting for cellulitis of her Lower extremities as well as for UTI with macrobid. Upon arrival to the ED patient was tachycardic, tachypnic, febrile, had a WBC elevation of 28.9, and a LA of 3.13. Cefepime was started and while waiting to be admitted for severe sepsis patient was found to be in afib w/ RVR. She received 1 bolus of cardizem in the ED and a cardizem drip was initiated. When seen this morning the patient was markedly wheezing while breath ing and extremely sleepy. She is alert to where she is and able to answer simple questions but would fall asleep mid-sentence when trying to obtain a more detailed account of events leading up to presentation. She did reports SOB and tiredness and denied CP, palpitations, abd pain, N/V/D, or abd pain. Subjective/Events-last exam Pt's respiratory status worsened last night and at this time ABG worsened as well. Today her ABG has improved. Pt is still currently on BiPAP and isn't tolerating trials off BiPAP. Pt is awake and alert and states that she isn't in any pain. Pt is w/o complaints currently. Review of Systems HEENT: No Head Aches Cardiovascular: No: Chest Pain, Palpitations Gastrointestinal: No: Nausea, Vomiting Focused Exam Time of Focused Exam: 23:00 Objective Exam Vital Signs Vital Signs Date Time Temp Pulse Resp B/P (MAP) Pulse Ox O2 Delivery O2 Flow Rate FiO2 06/01/22 17:17 36.5 06/01/22 16:55 92 128/65 06/01/22 16:22 NIV Bilevel 45.00 06/01/22 16:00 19 100 06/01/22 12:00 80 Capillary Refill : Less Than 3 Seconds General Appearance: Chronically ill, Obese Neck: Full Range of Motion Respiratory: Chest Non Tender, Lungs Clear, Normal Breath Sounds Cardiovascular: Regular Rate, Rhythm, No Murmur, Normal Peripheral Pulses Gastrointestinal: Normal Bowel Sounds, Non Tender, Soft Results/Procedures Lab Laboratory Tests 06/01/22 03:50 Patient resulted labs reviewed. Assessment/Plan Assessment and Plan Assess & Plan/Chief Complaint Acute on Chronic Hypercapnic Respiratory Failure BiPAP Prednisone MAT Protocol Pulmonary Edema BiPAP Lasix Severe Sepsis Improved Bacteremia E. Coli Continue Meropenem UTI Improved Atrial Fibrillation Eliquis Diltiazem LLE Cellulitis Miconazole Hyponatremia Improved Hypokalemia Potassium replacement Elevated Liver Enzymes Secondary to sepsis DAPHNIE CHERRY MD 06/01/22 2004: Subjective HPI/CC On Admission Time Seen by Provider: 11:25 Objective Exam General Appearance: No Apparent Distress, Obese Respiratory: No Respiratory Distress, Decreased Breath Sounds, Other (wearing BiPAP) Cardiovascular: Regular Rate, Rhythm, No Murmur Gastrointestinal: Normal Bowel Sounds, Soft Extremity: Normal Inspection; No Inflammation; Pedal Edema Neurologic/Psychiatric: Alert, Oriented x3, Motor Weakness Skin: Normal Color, Warm/Dry Assessment/Plan Assessment and Plan Assess & Plan/Chief Complaint Continue BiPAP, ABG improving. Will likely need home BiPAP. Continue antibiotics for ESBL UTI. Diagnosis/Problems Diagnosis/Problems (1) Acute respiratory failure with hypoxia and hypercapnia Status: Acute (2) Super obesity Status: Acute (3) SAILAJA (obstructive sleep apnea) Status: Acute (4) Obesity hypoventilation syndrome Status: Acute (5) UTI due to extended-spectrum beta lactamase (ESBL) producing Escherichia coli Status: Acute (6) HTN (hypertension) Status: Chronic (7) Elevated LFTs Status: Acute (8) Afib Status: Chronic (9) Severe sepsis Status: Resolved Resolution Date/Time: 06/01/22 @ 20:03 Supervisory-Addendum Brief Verification & Attestation Participated in pt care: history, MDM, physical Personally performed: exam, history, MDM, supervision of care Care discussed with: Medical Student Procedures: n/a Results interpretation: Verified all documentation A medical student performed and documented this service in my presence. I reviewed and verified all information documented by the medical student and made modifications to such information, when appropriate. I personally performed the physical exam and medical decision making. LIBERTY RIVAS Jun 01, 2022 17:34 DAPHNIE CHERRY MD Jun 01, 2022 20:04
[2022-06-01] MEDS ORDERED: inSUlin ASPART (NovoLOG) 1 UNIT/0.01 ML (CHARGE PER UNIT) SC SCH (18:15)
[2022-06-01] MEDS: inSUlin ASPART (NovoLOG) 1 UNIT/0.01 ML (CHARGE PER UNIT) SC SCH ×2 (18:38→23:22)
[2022-06-01] MEDS ORDERED: NS IV 1000 ML 1,000 ML IV ONE (18:45)
[2022-06-01] MEDS ORDERED: NS IV 1000 ML 1,000 ML ONE (18:46)
[2022-06-01 20:53] LABS: ABG BASE EXCESS 12.5 MMOL/L (-2.5-2.5); ABG OXYGEN SATURATION 95 % (94-100); ABG PCO2 59 MMHG (35-45); ABG PH 7.42 (7.37-7.43); ABG PO2 59 MMHG (79-93); ABG TCO2 39.8 MMOL/L (21.0-31.0)
[2022-06-01 20:54] LABS: ALLENS TEST YES-POS; INSPIRED O2 45%; PATIENT TEMP 35.6; VENTILATOR NO
[2022-06-01] MEDS: NS IV 500 ML 500 ML IV PRN (23:07)
[2022-06-02] MEDS: POTASSIUM CL 10MEQ/50ML IVPB 50 ML IV SCH ×2 (01:03→05:52)
[2022-06-02] MEDS: RT-IPRATROPIUM (ATROVENT) 0.5MG/2.5ML AMP IH SCH ×6 (01:40→22:41)
[2022-06-02 01:41] VITALS: BP 112/67
[2022-06-02] MEDS: RT-ALBUTEROL SULF 2.5 MG/3 ML PRE-MIX VIAL INH SCH ×6 (01:41→22:41)
[2022-06-02 03:54] LABS: BASOPHILS % (AUTO) 0 % (0-10); EOSINOPHILS % (AUTO) 0 % (0-10); HEMATOCRIT 34 % (35-52); HEMOGLOBIN 10.8 g/dL (11.5-16.0); LYMPHOCYTES # (AUTO) 0.8 10^3/uL (1.0-4.0); LYMPHOCYTES % (AUTO) 5 % (12-44); MEAN CORPUSCULAR HEMOGLOBIN 29 pg (25-34); MEAN CORPUSCULAR HGB CONC 32 g/dL (32-36); MEAN CORPUSCULAR VOLUME 91 fL (80-99); MONOCYTES # (AUTO) 0.5 10^3/uL (0.0-1.0); MONOCYTES % (AUTO) 4 % (0-12); NEUTROPHILS # (AUTO) 13.8 10^3/uL (1.8-7.8); NEUTROPHILS % (AUTO) 89 % (42-75); PLATELET COUNT 147 10^3/uL (130-400); WHITE BLOOD COUNT 15.4 10^3/uL (4.3-11.0)
[2022-06-02 04:02] LABS: ALBUMIN 3.2 GM/DL (3.2-4.5); POTASSIUM 4.2 MMOL/L (3.6-5.0)
[2022-06-02 04:05] LABS: TOTAL PROTEIN 6.2 GM/DL (6.4-8.2)
[2022-06-02] MEDS: MEROPENEM 500 MG in NS (IVPB) 100 ML IV SCH ×4 (04:05→20:53)
[2022-06-02 04:06] LABS: BILIRUBIN,TOTAL 0.6 MG/DL (0.1-1.0)
[2022-06-02] MEDS: VASOPRESSIN INJECTION 20 UNIT in NS (IVPB) 100 ML IV SCH ×2 (04:06→15:10)
[2022-06-02 04:08] LABS: CREATININE SERUM 0.83 MG/DL (0.60-1.30); PHOSPHORUS 2.7 MG/DL (2.3-4.7)
[2022-06-02 04:11] LABS: MAGNESIUM 2.1 MG/DL (1.6-2.4)
[2022-06-02] MEDS: NOREPINEPHRINE 8 MG/250 ML 250 ML IV SCH ×2 (05:29→15:10)
[2022-06-02] MEDS: inSUlin ASPART (NovoLOG) 1 UNIT/0.01 ML (CHARGE PER UNIT) SC SCH ×3 (05:52→18:09)
[2022-06-02] MEDS: MAGNESIUM 1 GM/100 ML IVPB 100 ML IV SCH (05:52)
[2022-06-02] MEDS: KCL 20 MEQ TAB (K-DUR) PO SCH (05:52)
[2022-06-02] MEDS: predniSONE 20 MG TAB PO SCH (06:20)
[2022-06-02] MEDS: FUROSEMIDE 40 MG/4 ML INJ (LASIX) IVP SCH ×2 (06:21→16:19)
[2022-06-02 07:43] VITALS: BP 137/69
[2022-06-02] MEDS: RT--FLUTICASONE/SALMETEROL 232-14 (AIRDUO RespiCLICK) IH SCH ×2 (07:43→22:41)
--- NOTE | 2022-06-02 08:04 | Cardiology Progress Note ---
Subjective Date Seen by Provider: Jun 02, 2022 Time Seen by Provider: 08:03 Subjective/Events-last exam Patient is laying down in bed. Currently on BiPAP Review of Systems General: No Chills, No Night Sweats; Fatigue, Malaise; No Appetite, No Other HEENT: No Head Aches, No Visual Changes, No Eye Pain, No Ear Pain, No Dysphasia, No Sinus Congestion, No Post Nasal Drip, No Sore Throat, No Other Pulmonary: Dyspnea, Cough; No Pleuritic Chest Pain, No Other Cardiovascular: No: Chest Pain, Palpitations, Orthopnea, Paroxysmal Noc. Dyspnea, Edema, Lt Headedness, Other Focused Exam Time of Focused Exam: 23:00 Objective-Cardiology Exam Last Set of Vital Signs Vital Signs 06/02/22 06/02/22 06/02/22 06/02/22 04:00 06:00 07:42 07:43 Temp 36.4 Pulse 91 Resp 26 B/P (MAP) 105/65 (78) Pulse Ox 95 O2 Delivery NIV Bilevel O2 Flow Rate 45.00 FiO2 45 I&O Intake and Output 06/02/22 00:00 Intake Total 1080 ml Output Total 2900 ml Balance -1820 ml Intake Oral 380 ml IV Total 700 ml Output Urine Total 2900 ml General: Alert, Oriented X3, Cooperative HEENT: Atraumatic Neck: Supple, No JVD, No Thyromegaly Lungs: Normal Air Movement, Other (Bilateral rhonchi) Heart: Normal S1, Normal S2, No Murmurs, Other (Atrial fibrillation) Abdomen: Normal Bowel Sounds, Soft, No Tenderness, No Hepatosplenomegaly, No Masses Extremities: No Clubbing, No Cyanosis, Normal Pulses, No Tenderness/Swelling, Other (Peripheral) Skin: No Rashes, No Breakdown, No Significant Lesion Neuro: Normal Gait, Normal Speech, Normal Tone, Sensation Intact Psych/Mental Status: Mood NL Results Lab Laboratory Tests 06/02/22 03:37 A/P-Cardiology Admission Diagnosis Urosepsis Lactic acidosis Atrial fibrillation Acute respiratory failure Assessment/Plan Urosepsis, lactic acidosis E. coli bacteremia Improving, responded well to antibiotic and IV fluid Heart rate and blood pressure are more stable Atrial fibrillation with rapid ventricular response, new onset Tolerating oral Cardizem, heart rate is better controlled Cannot tolerate having a KENNETH with cardioversion. She is currently in respiratory failure Acute hypercapnic, hypoxemic respiratory failure Deteriorated over the past 24 hours, currently on BiPAP Receiving Lasix, continue to monitor Pulmonary edema, fluid overload probably secondary to aggressive IV fluid with sepsis. 2D echo was done on May 28, 2022 with four-chamber dilatation, ejection fraction 45 to 50%, severe pulmonary hypertension with PA pressure 50 to 55 mmHg [id number] score 4, started on Eliquis 5 mg twice daily Lactic acidosis secondary to sepsis, continue with supportive care Acute kidney injury, improving Super morbid obesity. NANCY BUSCH MD Jun 02, 2022 08:04
[2022-06-02] MEDS: FAMOTIDINE 20MG/2ML IV (PEPCID) IVP SCH (08:18)
[2022-06-02] MEDS: busPIRone 5 MG (BUSPAR) TAB PO SCH ×2 (08:18→16:19)
[2022-06-02] MEDS: APIXABAN 5 MG (ELIQUIS) TABLET PO SCH ×2 (08:18→20:52)
[2022-06-02] MEDS: MICONAZOLE 2% POWDER (DESENEX AF) 90 GM TOP SCH ×2 (08:18→21:36)
[2022-06-02] MEDS: dilTIAZem DRIP 125 MG/125 ML DRIP IV SCH (09:25)
[2022-06-02] MEDS: ALPRAZolam 0.25 MG (XANAX) TAB PO PRN (10:46)
--- NOTE | 2022-06-02 12:17 | Tele-ICU Progress Note ---
Subjective Date Seen by a Provider: Jun 02, 2022 Time Seen by a Provider: 12:17 Subjective/Events-last exam (Tele-ICU Physician , Progress Note ) Service provided via interactive audio and video telecommunications E-CARE system to a patient admitted to ICU bed in [facility]. Patient is seen today due to persistent need of ICU care Available chart/ vitals / labs / Images reviewed Video assessment done using teleICU camera, rest of exam as per RN Discussed with RN Events overnight : Afebrile hemodynamically stable Respiratory - 30% I/O = neg 2 L Drips: Pressors- no Consultants: Hospital course: (05.28) Admitted a 81 y/o from [place] with severe sepsis UTI and AF/RVR 05/29 - BIPAP 15/5 rr 20 30%- LOVES nippv , trying VT 100% 15L 06/01 - 80% , on BIPAP 18/ rr 26 , lasix 80 bid , additional dose of steroid x1 06/02- BIPAP 45% after 2L diuresis , tolerates VT for short time A/P Acute resp failure - 03/28 BIPAP 15/5 rr 30 40% ( did like bipap , tolerated well ) 06/01-WORSENIG --> 06/02- BIPAP 45% after 2L diuresis , tolerates VT for short time - cont nebs po steroids , diuresis A fib - cardizem PO - will try to keep PO , but will see of can tolerate well off bipap to take pills - Eliquis -ECHO EF 45-5-% -cards follow Pulm HTN - ECHO 05/28 - RVSP 50 mmHg - cont diuresis UTI, sepsis with BACTEREMIA ( presumed E coli ) - on merrem BONIFACIO -normalized AECOPD - contr nebs - on po steroids - will give one dose IV steroids 06/01 Possble PNA - neg cov , fly Somnolence - TME , improved Chronic hypoxic ( on 3 L ) resp failure and chronic hypercarbic failure - with Super morbid obesity. and COPD Nutritiona - might need NG for feeding Lines : periph , (Central Line Necessity Reviewed) Hardy: + OG: Nutrition: PO - on hold today , reasess Analgesia: Anxiety/ delirium VTE Prophylaxis: eliquis Stress Ulcer Prophylaxis: na Plans in collaboration with bedside consultants and IM MDs. Discusse with Dr Vargas Discussed with RN to reach out if any questions or concerns A total of 33 minutes of critical care time was devoted to this patient today, required to treat and/or prevent further deterioration of critical care condition ( as above ) . I am remotely monitoring this patient from another state. I am unable to do the bedside exam, and history/physical and pertinent information is taken from other notes in the computer and bedside staff. Sepsis Event Evaluation Height, Weight, BMI Height: '" Weight: lbs. oz. kg; 58.99 BMI Method: Focused Exam Time of Focused Exam: 23:00 Exam Exam Patient acknowledged, consented, and participated in this virtual visit which was conducted using real time audio/video Vital Signs Date Time Temp Pulse Resp B/P (MAP) Pulse Ox O2 Delivery O2 Flow Rate FiO2 06/02/22 12:00 87 21 123/57 (79) 95 Vapotherm 40.00 45.00 06/02/22 11:38 Vapotherm 40.00 45.00 06/02/22 11:00 105 21 137/67 (90) 99 NIV Bilevel 45.00 06/02/22 10:27 94 Vapotherm 40.00 100 06/02/22 10:00 81 18 117/61 (79) 96 NIV Bilevel 45.00 06/02/22 09:00 87 20 116/56 (76) 97 NIV Bilevel 45.00 06/02/22 08:00 85 24 119/59 (79) 96 NIV Bilevel 45.00 06/02/22 07:43 91 26 95 45.00 06/02/22 07:42 36.4 06/02/22 07:18 88 06/02/22 07:00 94 33 137/69 (91) 96 NIV Bilevel 45.00 06/02/22 06:00 81 36 105/65 (78) 90 NIV Bilevel 45.00 06/02/22 05:00 79 37 120/79 (87) 90 NIV Bilevel 45.00 06/02/22 04:06 90 107/62 06/02/22 04:00 90 28 117/63 (85) 95 NIV Bilevel 45.00 06/02/22 04:00 94 NIV Bilevel 45 06/02/22 03:00 90 21 107/62 (77) 97 NIV Bilevel 45.00 06/02/22 03:00 NIV Bilevel 45.00 06/02/22 02:42 36.4 NIV Bilevel 45.00 06/02/22 02:19 89 35 118/61 (80) 96 NIV Bilevel 45.00 06/02/22 01:41 92 32 96 45.00 06/02/22 01:05 85 06/02/22 01:03 92 22 112/67 (82) 92 NIV Bilevel 45.00 06/02/22 00:00 82 18 106/57 (73) 97 NIV Bilevel 45.00 06/02/22 00:00 92 NIV Bilevel 45 06/01/22 23:18 36.6 NIV Bilevel 45.00 06/01/22 23:17 73 14 124/63 (83) 98 NIV Bilevel 45.00 06/01/22 22:15 85 18 96 45.00 06/01/22 22:00 85 18 128/71 (90) 96 NIV Bilevel 45.00 06/01/22 21:00 92 19 140/84 (102) 96 NIV Bilevel 45.00 06/01/22 20:00 82 20 122/64 (83) 98 NIV Bilevel 45.00 06/01/22 20:00 93 NIV Bilevel 45 06/01/22 19:50 36.3 06/01/22 19:05 86 21 96 45.00 06/01/22 19:00 87 21 134/72 (92) 99 NIV Bilevel 45.00 06/01/22 19:00 NIV Bilevel 45.00 06/01/22 19:00 87 06/01/22 18:00 93 31 167/113 (131) 96 NIV Bilevel 45.00 06/01/22 17:17 36.5 06/01/22 17:00 80 20 131/75 (93) 97 NIV Bilevel 45.00 06/01/22 16:55 92 128/65 06/01/22 16:22 NIV Bilevel 45.00 06/01/22 16:00 36.5 06/01/22 16:00 92 NIV Bilevel 45 06/01/22 16:00 92 19 128/65 (86) 100 NIV Bilevel 60.00 06/01/22 15:55 92 20 100 55.00 06/01/22 15:08 100 NIV Bilevel 60.00 06/01/22 15:00 98 27 137/72 (93) 95 NIV Bilevel 70.00 06/01/22 14:07 95 NIV Bilevel 70.00 06/01/22 14:00 96 16 138/88 (105) 96 NIV Bilevel 80.00 06/01/22 13:00 96 22 123/81 (95) 95 NIV Bilevel 80.00 06/01/22 13:00 104 I & O 06/02/22 07:00 Intake Total 1000 ml Output Total 2825 ml Balance -1825 ml Height & Weight Height: '" Weight: lbs. oz. kg; 58.99 BMI Method: General Appearance: No Apparent Distress, Obese HEENT: PERRL/EOMI, Moist Mucous Membranes Neck: Full Range of Motion Respiratory: No Respiratory Distress, Decreased Breath Sounds, Other (wearing BiPAP) Cardiovascular: Regular Rate, Rhythm, No Murmur Capillary Refill: Less Than 3 Seconds Peripheral Pulses: 1+ Radial Pulses (R), 1+ Radial Pulses (L) Extremity: Normal Inspection; No Inflammation; Pedal Edema Neurologic/Psychiatric: Alert, Oriented x3, Motor Weakness Skin: Normal Color, Warm/Dry Lymphatic: No Adenopathy Results Lab Laboratory Tests 06/01/22 03:50 06/02/22 03:37 Assessment/Plan Assessment/Plan 1 MADDI MEDEL MD Jun 02, 2022 12:17
--- NOTE | 2022-06-02 14:41 | Progress Note - Hospitalist ---
LIBERTY RIVAS 06/02/22 1441: Subjective HPI/CC On Admission Date Seen by Provider: Jun 02, 2022 81 year old female with PMH of COPD, HTN, PVD, cellulitis, severe obesity, anxiety, and depression presented to the ED yesterday for diffuse pain and di fficulty breathing. Per the ED note, she recently had treatment initiated in the out patient setting for cellulitis of her Lower extremities as well as for UTI with macrobid. Upon arrival to the ED patient was tachycardic, tachypnic, febrile, had a WBC elevation of 28.9, and a LA of 3.13. Cefepime was started and while waiting to be admitted for severe sepsis patient was found to be in afib w/ RVR. She received 1 bolus of cardizem in the ED and a cardizem drip was initiated. When seen this morning the patient was markedly wheezing while breathing and extremely sleepy. She is alert to where she is and able to answer simple questions but would fall asleep mid-sentence when trying to obtain a more detailed account of events leading up to presentation. She did reports SOB and tiredness and denied CP, palpitations, abd pain, N/V/D, or abd pain. Subjective/Events-last exam Pt was sitting in bed and seemed very anxious. Pt states that her breathing is worsening despite normal saturation off BiPAP. Pt doesn't report any pain but is concerned about getting back home. She would like to improve to go back home. Review of Systems Pulmonary: No Dyspnea; Cough Cardiovascular: No: Chest Pain, Palpitations Gastrointestinal: No: Nausea, Vomiting, Diarrhea Focused Exam Time of Focused Exam: 23:00 Objective Exam Vital Signs Vital Signs Date Time Temp Pulse Resp B/P (MAP) Pulse Ox O2 Delivery O2 Flow Rate FiO2 06/02/22 14:27 95 Vapotherm 40.00 100 06/02/22 14:00 80 32 134/72 (92) 06/02/22 12:00 36.5 Capillary Refill : Less Than 3 Seconds General Appearance: No Apparent Distress Respiratory: Chest Non Tender, Lungs Clear Cardiovascular: Regular Rate, Rhythm, No Edema, No Murmur, Normal Peripheral Pulses Gastrointestinal: Normal Bowel Sounds, Non Tender, Soft Neurologic/Psychiatric: Alert, Oriented x3 Results/Procedures Lab Laboratory Tests 06/02/22 03:37 Patient resulted labs reviewed. Assessment/Plan Assessment and Plan Assess & Plan/Chief Complaint Acute on Chronic Hypercapnic Respiratory Failure Wean off Oxygen Requirements Continue Prednisone MAT Protocol Pulmonary Edema Continue Lasix Severe Sepsis Improved Bacteremia E. Coli Continue Meropenem UTI Improved Atrial Fibrillation Continue Eliquis Continue Diltiazem Managed per cardiology LLE Cellulitis Miconazole Hyponatremia Improved Hypokalemia Improved Elevated Liver Enzymes Secondary to sepsis DAPHNIE CHERRY MD 06/02/22 1837: Subjective HPI/CC On Admission Time Seen by Provider: 11:00 Objective Exam General Appearance: No Apparent Distress, Anxious, Obese Respiratory: Lungs Clear, No Respiratory Distress, Decreased Breath Sounds Cardiovascular: Regular Rate, Rhythm, No Murmur Gastrointestinal: Normal Bowel Sounds, Soft Extremity: Normal Inspection, Pedal Edema Neurologic/Psychiatric: Alert, Oriented x3 Skin: Normal Color, Warm/Dry Assessment/Plan Assessment and Plan Assess & Plan/Chief Complaint Off BiPAP this morning. Wean Vapotherm as able. Continue BiPAP at night. Continue antibiotics for ESBL bacteremia. Diagnosis/Problems Diagnosis/Problems (1) Acute respiratory failure with hypoxia and hypercapnia Status: Acute (2) SAILAJA (obstructive sleep apnea) Status: Acute (3) Obesity hypoventilation syndrome Status: Acute (4) Super obesity Status: Acute (5) E coli bacteremia Status: Acute (6) Infection due to extended spectrum beta-lactamase producing bacteria Status: Acute Supervisory-Addendum Brief Verification & Attestation Participated in pt care: history, MDM, physical Personally performed: exam, history, MDM, supervision of care Care discussed with: Medical Student Procedures: n/a Results interpretation: Verified all documentation A medical student performed and documented this service in my presence. I reviewed and verified all information documented by the medical student and made modifications to such information, when appropriate. I personally performed the physical exam and medical decision making. LIBERTY RIVAS Jun 02, 2022 14:41 DAPHNIE CHERRY MD Jun 02, 2022 18:37
[2022-06-02] MEDS: DexMEDEtomidine 250 ML DRIP 250 ML IV SCH (16:29)
[2022-06-02 19:14] VITALS: BP 133/75
[2022-06-02 22:42] VITALS: BP 123/73
[2022-06-03] MEDS: NOREPINEPHRINE 8 MG/250 ML 250 ML IV SCH ×3 (00:06→17:04)
[2022-06-03] MEDS: inSUlin ASPART (NovoLOG) 1 UNIT/0.01 ML (CHARGE PER UNIT) SC SCH ×4 (00:06→18:12)
[2022-06-03] MEDS: RT-IPRATROPIUM (ATROVENT) 0.5MG/2.5ML AMP IH SCH ×6 (01:42→22:17)
[2022-06-03 01:43] VITALS: BP 116/72
[2022-06-03] MEDS: RT-ALBUTEROL SULF 2.5 MG/3 ML PRE-MIX VIAL INH SCH ×6 (01:43→22:17)
[2022-06-03 03:58] LABS: EOSINOPHILS # (AUTO) 0.1 10^3/uL (0.0-0.3); EOSINOPHILS % (AUTO) 1 % (0-10); HEMATOCRIT 33 % (35-52); HEMOGLOBIN 10.5 g/dL (11.5-16.0); MEAN CORPUSCULAR HGB CONC 32 g/dL (32-36)
[2022-06-03 04:00] LABS: BASOPHILS % (AUTO) 0 % (0-10); LYMPHOCYTES # (AUTO) 1.5 10^3/uL (1.0-4.0); LYMPHOCYTES % (AUTO) 12 % (12-44); MEAN CORPUSCULAR HEMOGLOBIN 29 pg (25-34); MEAN CORPUSCULAR VOLUME 92 fL (80-99); MEAN PLATELET VOLUME 12.1 fL (9.0-12.2); MONOCYTES # (AUTO) 0.7 10^3/uL (0.0-1.0); MONOCYTES % (AUTO) 5 % (0-12); NEUTROPHILS # (AUTO) 10.2 10^3/uL (1.8-7.8); NEUTROPHILS % (AUTO) 79 % (42-75); PLATELET COUNT 114 10^3/uL (130-400); WHITE BLOOD COUNT 12.8 10^3/uL (4.3-11.0)
[2022-06-03] MEDS: VASOPRESSIN INJECTION 20 UNIT in NS (IVPB) 100 ML IV SCH ×2 (04:05→14:24)
[2022-06-03] MEDS: MEROPENEM 500 MG in NS (IVPB) 100 ML IV SCH ×4 (04:13→21:46)
[2022-06-03 04:25] LABS: CALCIUM 8.9 MG/DL (8.5-10.1)
[2022-06-03] MEDS: KCL 20 MEQ TAB (K-DUR) PO SCH (04:26)
[2022-06-03] MEDS: POTASSIUM CL 10MEQ/50ML IVPB 50 ML IV SCH (04:26)
[2022-06-03 04:27] LABS: TOTAL PROTEIN 5.9 GM/DL (6.4-8.2)
[2022-06-03 04:28] LABS: BILIRUBIN,TOTAL 0.6 MG/DL (0.1-1.0)
[2022-06-03 04:30] LABS: CREATININE SERUM 0.77 MG/DL (0.60-1.30); PHOSPHORUS 2.9 MG/DL (2.3-4.7)
[2022-06-03 04:33] LABS: MAGNESIUM 1.8 MG/DL (1.6-2.4)
[2022-06-03] MEDS: MAGNESIUM 1 GM/100 ML IVPB 100 ML IV SCH (04:36)
[2022-06-03] MEDS: FUROSEMIDE 40 MG/4 ML INJ (LASIX) IVP SCH ×2 (06:04→16:20)
[2022-06-03] MEDS: NS IV 500 ML 500 ML IV PRN (06:04)
[2022-06-03] MEDS: predniSONE 20 MG TAB PO SCH (06:04)
[2022-06-03] MEDS: DexMEDEtomidine 250 ML DRIP 250 ML IV SCH (06:05)
[2022-06-03 06:53] VITALS: BP 123/84
[2022-06-03] MEDS: busPIRone 5 MG (BUSPAR) TAB PO SCH ×2 (08:07→16:20)
[2022-06-03] MEDS: FAMOTIDINE 20MG/2ML IV (PEPCID) IVP SCH (08:07)
[2022-06-03] MEDS: ALPRAZolam 0.25 MG (XANAX) TAB PO PRN (08:07)
[2022-06-03] MEDS: APIXABAN 5 MG (ELIQUIS) TABLET PO SCH ×2 (08:07→21:49)
[2022-06-03] MEDS: dilTIAZem DRIP 125 MG/125 ML DRIP IV SCH (08:16)
--- NOTE | 2022-06-03 08:45 | Tele-ICU Progress Note ---
Subjective Date Seen by a Provider: Jun 03, 2022 Time Seen by a Provider: 14:13 Subjective/Events-last exam (Tele-ICU Physician , consultation) Available chart/ vitals / labs / Images reviewed H&P is from ER notes Patient's information available about PMH, allergy reviewed in EMR. ROS as per chart and RN report Video assessment done using teleICU camera, rest of exam as per RN Discussed with RN. She is a 81-year-old female with past medical history of super morbid obesity recently has been treated for cellulitis and UTI and chronically bedbound. She is found to have a fever and a tachycardia and staff at the [facility] concern for sepsis and sent to the emergency room where she is found to have a atrial fibrillation with rapid ventricular rate. Apparently she has a history of COPD and on chronically 3 L of oxygen. Urine analysis suggestive of a urinary tract infection. She is started on a Cardizem drip and IV antibiotics in the emergency room and subsequently transferred to intensive care unit. She is awake alert and following commands. 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 06/03/2022 she is very anxious and on precedex. blood c/s grew MDR e. coli, currently meropenum Impression 1. Atrial fibrillation with rapid ventricular rate new onset, now rate controlled 2. Urinary tract infection with sepsis, E.coli 3. Lactic acidosis probably due to sepsis improved 4. Acute kidney injury due to sepsis improved 5. Super morbid obesity. 6. acute and chr. hypoxic respiratory failure. Plan of treatment 1. IV antibiotics with the meropenem 2. Resuscitate with fluids 3. Afib management per cardiology 4. Bipap? vapotherm as tolerated.. 5. Increase xanax and wean precedex. 6. DVT prophylaxis. Full dose anticoagulation per cardiology. 7. DNR status Coordination of care with the bedside consultants and primary care physician. Review of Systems ROS PER RN Sepsis Event Evaluation Height, Weight, BMI Height: '" Weight: lbs. oz. kg; 58.58 BMI Method: Focused Exam Time of Focused Exam: 23:00 Exam Exam Patient acknowledged, consented, and participated in this virtual visit which was conducted using real time audio/video Vital Signs Date Time Temp Pulse Resp B/P (MAP) Pulse Ox O2 Delivery O2 Flow Rate FiO2 06/03/22 08:16 98 Vapotherm 40.00 100.00 06/03/22 08:00 36.0 06/03/22 08:00 90 26 135/111 (119) 96 NIV Bilevel 45.00 06/03/22 07:00 78 22 124/84 (97) 99 NIV Bilevel 45.00 06/03/22 07:00 78 06/03/22 06:53 73 21 99 40.00 06/03/22 06:05 79 120/71 06/03/22 06:00 75 22 115/79 (91) 98 NIV Bilevel 45.00 06/03/22 05:00 79 22 120/71 (87) 98 NIV Bilevel 45.00 06/03/22 04:08 96 NIV Bilevel 45 06/03/22 02:00 80 20 98/68 (81) 97 NIV Bilevel 45.00 06/03/22 02:00 36.5 NIV Bilevel 45.00 06/03/22 01:43 82 21 98 45.00 06/03/22 01:00 77 19 121/75 (88) 99 NIV Bilevel 45.00 06/03/22 01:00 77 06/03/22 00:07 97 NIV Bilevel 45 06/03/22 00:00 85 18 114/67 (83) 98 NIV Bilevel 06/02/22 23:02 36.4 NIV Bilevel 45.00 06/02/22 23:00 75 19 119/71 (84) 97 NIV Bilevel 45.00 06/02/22 22:42 82 20 98 45.00 06/02/22 22:00 89 19 137/76 (91) 97 NIV Bilevel 45.00 06/02/22 21:00 87 13 144/87 (103) 94 NIV Bilevel 45.00 06/02/22 20:45 76 133/75 06/02/22 20:00 35.9 06/02/22 20:00 86 18 122/73 (88) 96 NIV Bilevel 45.00 06/02/22 20:00 95 NIV Bilevel 45 06/02/22 19:15 NIV Bilevel 45.00 06/02/22 19:14 76 19 96 45.00 06/02/22 19:00 81 20 133/75 (85) 96 NIV Bilevel 45.00 06/02/22 19:00 81 06/02/22 18:00 85 25 117/66 (83) 95 Vapotherm 40.00 45.00 06/02/22 17:00 85 24 154/71 (98) 94 Vapotherm 40.00 45.00 06/02/22 16:29 92 148/72 06/02/22 16:00 92 12 148/72 (97) 94 Vapotherm 40.00 45.00 06/02/22 16:00 96 NIV Bilevel 45 06/02/22 16:00 36.3 06/02/22 15:00 101 28 139/68 (91) 100 Vapotherm 40.00 45.00 06/02/22 14:27 95 Vapotherm 40.00 100 06/02/22 14:00 80 32 134/72 (92) 94 Vapotherm 40.00 45.00 06/02/22 13:00 92 30 128/59 (82) 97 Vapotherm 40.00 45.00 06/02/22 12:48 89 06/02/22 12:15 96 NIV Bilevel 45 06/02/22 12:00 87 21 123/57 (79) 95 Vapotherm 40.00 45.00 06/02/22 12:00 36.5 06/02/22 11:38 Vapotherm 40.00 45.00 06/02/22 11:00 105 21 137/67 (90) 99 NIV Bilevel 45.00 06/02/22 10:27 94 Vapotherm 40.00 100 06/02/22 10:00 81 18 117/61 (79) 96 NIV Bilevel 45.00 06/02/22 09:00 87 20 116/56 (76) 97 NIV Bilevel 45.00 06/02/22 08:47 96 NIV Bilevel 45 I & O 06/03/22 07:00 Intake Total 1490 ml Output Total 2950 ml Balance -1460 ml Height & Weight Height: '" Weight: lbs. oz. kg; 58.58 BMI Method: General Appearance: No Apparent Distress, Anxious, Obese HEENT: PERRL/EOMI, Moist Mucous Membranes Neck: Full Range of Motion Respiratory: Lungs Clear, No Respiratory Distress, Decreased Breath Sounds Cardiovascular: Regular Rate, Rhythm, No Murmur Capillary Refill: Less Than 3 Seconds Peripheral Pulses: 1+ Radial Pulses (R), 1+ Radial Pulses (L) Extremity: Normal Inspection, Pedal Edema Neurologic/Psychiatric: Alert, Oriented x3 Skin: Normal Color, Warm/Dry Lymphatic: No Adenopathy Other comments PE PER RN Results Lab Laboratory Tests 06/02/22 03:37 06/03/22 03:23 Assessment/Plan Assessment/Plan ABOVE Critical Care: Critically Ill Patient Time spent with patient (mins): 25 KIRSTEN COY MD Jun 03, 2022 08:45
[2022-06-03] MEDS ORDERED: ALPRAZolam 0.5 MG (XANAX) TAB PO PRN (09:00)
[2022-06-03] MEDS: MICONAZOLE 2% POWDER (DESENEX AF) 90 GM TOP SCH ×2 (09:06→22:39)
[2022-06-03 10:09] LABS: FIBRIN DEGRADATION PRODUCTS 3.12 UG/ML (0.00-0.49); INR 1.6 (0.8-1.4)
[2022-06-03] MEDS: RT--FLUTICASONE/SALMETEROL 232-14 (AIRDUO RespiCLICK) IH SCH ×2 (10:41→22:20)
[2022-06-03] MEDS: UMECLIDINIUM BROMIDE (INCRUSE ELLIPTA) 7'S IH SCH ×2 (10:41→14:29)
[2022-06-03] MEDS: METHYL SALICYLATE/MENTHOL (BENGAY, MUSCLE RUB) 3 OZ TUBE TP PRN (10:49)
[2022-06-03] MEDS: ACETAMINOPHEN ER 650 MG (TYLENOL ARTHRITIS) PO PRN ×2 (13:08→20:05)
--- NOTE | 2022-06-03 13:27 | Cardiology Progress Note ---
Subjective Date Seen by Provider: Jun 03, 2022 Time Seen by Provider: 13:26 Subjective/Events-last exam Patient was seen at bedside, laying down comfortably, feeling better Still on BiPAP Review of Systems General: No Chills, No Night Sweats; Fatigue, Malaise; No Appetite, No Other HEENT: No Head Aches, No Visual Changes, No Eye Pain, No Ear Pain, No Dysphasia, No Sinus Congestion, No Post Nasal Drip, No Sore Throat, No Other Pulmonary: Dyspnea; No Cough, No Pleuritic Chest Pain, No Other Cardiovascular: No: Chest Pain, Palpitations, Orthopnea, Paroxysmal Noc. Dyspnea, Edema, Lt Headedness, Other Focused Exam Time of Focused Exam: 23:00 Objective-Cardiology Exam Last Set of Vital Signs Vital Signs 06/03/22 06/03/22 06/03/22 12:00 12:15 13:01 Temp 36.0 Pulse 96 Resp 30 B/P (MAP) 127/68 (87) Pulse Ox 93 O2 Delivery NIV Bilevel O2 Flow Rate 40.00 FiO2 45 I&O Intake and Output 06/03/22 00:00 Intake Total 970 ml Output Total 3175 ml Balance -2205 ml Intake Oral 770 ml IV Total 200 ml Output Urine Total 3175 ml General: Alert, Oriented X3, Cooperative HEENT: Atraumatic Neck: Supple, No JVD, No Thyromegaly Lungs: Normal Air Movement, Other (Bilateral rhonchi) Heart: Normal S1, Normal S2, No Murmurs, Other (Atrial fibrillation) Abdomen: Normal Bowel Sounds, Soft, No Tenderness, No Hepatosplenomegaly, No Masses Extremities: No Clubbing, No Cyanosis, Normal Pulses, No Tenderness/Swelling, Other (Peripheral) Skin: No Rashes, No Breakdown, No Significant Lesion Neuro: Normal Gait, Normal Speech, Normal Tone, Sensation Intact Psych/Mental Status: Mood NL Results Lab Laboratory Tests 06/03/22 03:23 A/P-Cardiology Admission Diagnosis Urosepsis Lactic acidosis Atrial fibrillation Acute respiratory failure Assessment/Plan Urosepsis, lactic acidosis E. coli bacteremia Improving, responded well to antibiotic and IV fluid Heart rate and blood pressure are more stable Acute respiratory failure, hypoxemic, hypercapnic. Deteriorated and currently on BiPAP, managed by primary care team Atrial fibrillation with rapid ventricular response, new onset Tolerating oral Cardizem, heart rate is better controlled Cannot tolerate having a KENNETH with cardioversion. She is currently in respiratory failure Pulmonary edema, fluid overload probably secondary to aggressive IV fluid with sepsis. 2D echo was done on May 28, 2022 with four-chamber dilatation, ejection fraction 45 to 50%, severe pulmonary hypertension with PA pressure 50 to 55 mmHg [id number] score 4, started on Eliquis 5 mg twice daily Lactic acidosis secondary to sepsis, continue with supportive care Acute kidney injury, improving Super morbid obesity. NANCY BUSCH MD Jun 03, 2022 13:27
--- NOTE | 2022-06-03 13:48 | Progress Note - Hospitalist ---
Subjective HPI/CC On Admission Date Seen by Provider: Jun 03, 2022 Time Seen by Provider: 10:00 81 year old female with PMH of COPD, HTN, PVD, cellulitis, severe obesity, anxiety, and depression presented to the ED yesterday for diffuse pain and difficulty breathing. Per the ED note, she recently had treatment initiated in the out patient setting for cellulitis of her Lower extremities as well as for UTI with macrobid. Upon arrival to the ED patient was tachycardic, tachypnic, febrile, had a WBC elevation of 28.9, and a LA of 3.13. Cefepime was started and while waiting to be admitted for severe sepsis patient was found to be in afib w/ RVR. She received 1 bolus of cardizem in the ED and a cardizem drip was initiated. When seen this morning the patient was markedly wheezing while breathing and extremely sleepy. She is alert to where she is and able to answer simple questions but would fall asleep mid-sentence when trying to obtain a more detailed account of events leading up to presentation. She did reports SOB and tiredness and denied CP, palpitations, abd pain, N/V/D, or abd pain. Subjective/Events-last exam She is anxious. She is very worried about everything. She denies any other complaints. We discussed her code status and she does not want to be resuscitated or put on a ventilator. She also expresses that she does not want to be a "vegetable". Focused Exam Time of Focused Exam: 23:00 Objective Exam Vital Signs Vital Signs Date Time Temp Pulse Resp B/P (MAP) Pulse Ox O2 Delivery O2 Flow Rate FiO2 06/03/22 13:30 93 06/03/22 13:01 93 40.00 06/03/22 13:00 23 128/75 (92) Vapotherm 06/03/22 12:15 45 06/03/22 12:00 36.0 Capillary Refill : Less Than 3 Seconds General Appearance: No Apparent Distress, Anxious, Obese Respiratory: No Respiratory Distress, Decreased Breath Sounds Cardiovascular: Regular Rate, Rhythm, No Murmur Gastrointestinal: Normal Bowel Sounds, Soft Extremity: No Inflammation; Pedal Edema, Swelling Neurologic/Psychiatric: Alert, Motor Weakness Skin: Warm/Dry, Other (lower extremities dry and wrinkled skin) Results/Procedures Lab Laboratory Tests 06/03/22 03:23 Patient resulted labs reviewed. Assessment/Plan Assessment and Plan Assess & Plan/Chief Complaint Acute on chronic respiratory failure with hypoxia and hypercapnia Obstructive sleep apnea Obesity hypoventilation syndrome Super obesity BiPAP at night Wean vapotherm Prednisone Lasix MAT protocol TeleICU following Goals of care discussion Poor prognosis DNR/DNI Thrombocytopenia Not DIC Heparin induced Ab pending ESBL E coli bactermia Likely UTI Continue Meropenem Atrial fibrillation Cardizem and Eliquis Cardiology following Severe sepsis, resolved Elevated LFTs, resolved Hypokalemia, resolved Hyponatremia, resolved Critical Care Critically Ill Patient Diagnosis/Problems Diagnosis/Problems (1) Acute respiratory failure with hypoxia and hypercapnia Status: Acute (2) SAILAJA (obstructive sleep apnea) Status: Acute (3) Obesity hypoventilation syndrome Status: Acute (4) Super obesity Status: Acute (5) E coli bacteremia Status: Acute (6) Infection due to extended spectrum beta-lactamase producing bacteria Status: Acute DAPHNIE CHERRY MD Jun 03, 2022 13:48
[2022-06-03] MEDS ORDERED: guaiFENesin/DM (ROBITUSSIN DM) 10 ML UDC PO PRN (14:15)
[2022-06-03] MEDS: LORazepam 0.5 MG (ATIVAN) TABLET PO PRN (14:25)
[2022-06-03] MEDS ORDERED: PATIENT MAY USE OWN MEDS, ALL PO SCH (17:15)
[2022-06-03] MEDS ORDERED: NS IV 1000 ML 1,000 ML IV SCH (17:15)
[2022-06-03] MEDS: ALPRAZolam 0.5 MG (XANAX) TAB PO SCH (21:48)
[2022-06-03 22:19] VITALS: BP 123/84
[2022-06-04] MEDS: inSUlin ASPART (NovoLOG) 1 UNIT/0.01 ML (CHARGE PER UNIT) SC SCH ×5 (00:56→23:14)
[2022-06-04] MEDS: VASOPRESSIN INJECTION 20 UNIT in NS (IVPB) 100 ML IV SCH ×3 (00:57→22:58)
[2022-06-04 02:08] VITALS: BP 122/74
[2022-06-04] MEDS: RT-ALBUTEROL SULF 2.5 MG/3 ML PRE-MIX VIAL INH SCH ×6 (02:08→22:28)
[2022-06-04] MEDS: RT-IPRATROPIUM (ATROVENT) 0.5MG/2.5ML AMP IH SCH ×6 (02:08→22:28)
[2022-06-04] MEDS: NOREPINEPHRINE 8 MG/250 ML 250 ML IV SCH ×3 (03:55→18:24)
[2022-06-04] MEDS: MEROPENEM 500 MG in NS (IVPB) 100 ML IV SCH ×4 (03:59→22:00)
[2022-06-04 06:14] LABS: EOSINOPHILS % (AUTO) 3 % (0-10); HEMATOCRIT 35 % (35-52); MEAN CORPUSCULAR VOLUME 90 fL (80-99)
[2022-06-04] MEDS: FUROSEMIDE 40 MG/4 ML INJ (LASIX) IVP SCH ×2 (06:14→16:28)
[2022-06-04] MEDS: LORazepam 0.5 MG (ATIVAN) TABLET PO PRN ×2 (06:14→10:38)
[2022-06-04 06:16] LABS: BASOPHILS % (AUTO) 0 % (0-10); EOSINOPHILS # (AUTO) 0.4 10^3/uL (0.0-0.3); HEMOGLOBIN 11.1 g/dL (11.5-16.0); LYMPHOCYTES # (AUTO) 1.5 10^3/uL (1.0-4.0); LYMPHOCYTES % (AUTO) 13 % (12-44); MEAN CORPUSCULAR HEMOGLOBIN 29 pg (25-34); MEAN CORPUSCULAR HGB CONC 32 g/dL (32-36); MEAN PLATELET VOLUME 12.3 fL (9.0-12.2); MONOCYTES # (AUTO) 0.6 10^3/uL (0.0-1.0); MONOCYTES % (AUTO) 6 % (0-12); NEUTROPHILS # (AUTO) 8.4 10^3/uL (1.8-7.8); NEUTROPHILS % (AUTO) 75 % (42-75); PLATELET COUNT 113 10^3/uL (130-400); WHITE BLOOD COUNT 11.2 10^3/uL (4.3-11.0)
[2022-06-04] MEDS: predniSONE 20 MG TAB PO SCH (06:16)
[2022-06-04] MEDS: UMECLIDINIUM BROMIDE (INCRUSE ELLIPTA) 7'S IH SCH (06:40)
[2022-06-04] MEDS: RT--FLUTICASONE/SALMETEROL 232-14 (AIRDUO RespiCLICK) IH SCH ×2 (06:40→22:28)
[2022-06-04 06:51] LABS: ALBUMIN 2.9 GM/DL (3.2-4.5); POTASSIUM 3.7 MMOL/L (3.6-5.0)
[2022-06-04 06:52] LABS: CALCIUM 8.8 MG/DL (8.5-10.1)
[2022-06-04 06:54] LABS: TOTAL PROTEIN 5.8 GM/DL (6.4-8.2)
[2022-06-04 06:55] LABS: BILIRUBIN,TOTAL 0.8 MG/DL (0.1-1.0)
[2022-06-04 06:57] LABS: CREATININE SERUM 0.75 MG/DL (0.60-1.30); PHOSPHORUS 3.5 MG/DL (2.3-4.7)
[2022-06-04] MEDS: POTASSIUM CL 10MEQ/50ML IVPB 50 ML IV SCH (06:57)
[2022-06-04] MEDS: KCL 20 MEQ TAB (K-DUR) PO SCH (06:57)
[2022-06-04 07:00] LABS: MAGNESIUM 1.6 MG/DL (1.6-2.4)
--- NOTE | 2022-06-04 08:01 | Cardiology Progress Note ---
Subjective Date Seen by Provider: Jun 04, 2022 Time Seen by Provider: 08:00 Subjective/Events-last exam Patient was seen at bedside, lethargic, currently on Vapotherm Focused Exam Time of Focused Exam: 23:00 Objective-Cardiology Exam Last Set of Vital Signs Vital Signs 06/04/22 06/04/22 06/04/22 06:00 06:40 07:53 Temp 36.2 Pulse 87 Resp 21 B/P (MAP) 107/65 (79) Pulse Ox 95 O2 Delivery Vapotherm O2 Flow Rate 25.00 FiO2 70 I&O Intake and Output 06/04/22 00:00 Intake Total 1760 ml Output Total 4000 ml Balance -2240 ml Intake Oral 1040 ml IV Total 720 ml Output Urine Total 4000 ml General: Alert, Oriented X3, Cooperative HEENT: Atraumatic Neck: Supple, No JVD, No Thyromegaly Lungs: Normal Air Movement, Other (Bilateral rhonchi) Heart: Normal S1, Normal S2, No Murmurs, Other (Atrial fibrillation) Abdomen: Normal Bowel Sounds, Soft, No Tenderness, No Hepatosplenomegaly, No Masses Extremities: No Clubbing, No Cyanosis, Normal Pulses, No Tenderness/Swelling, Other (Peripheral) Skin: No Rashes, No Breakdown, No Significant Lesion Neuro: Normal Gait, Normal Speech, Normal Tone, Sensation Intact Psych/Mental Status: Mood NL Results Lab Laboratory Tests 06/04/22 05:26 A/P-Cardiology Admission Diagnosis Urosepsis Lactic acidosis Atrial fibrillation Acute respiratory failure Assessment/Plan Urosepsis, lactic acidosis E. coli bacteremia Improving, responded well to antibiotic and IV fluid Heart rate and blood pressure are more stable Acute respiratory failure, hypoxemic, hypercapnic. Currently on Vapotherm, lethargic, probably hypercapnic. Managed by medical team Atrial fibrillation with rapid ventricular response, new onset Tolerating oral Cardizem, heart rate is better controlled Cannot tolerate having a KENNETH with cardioversion. She is currently in respiratory failure Pulmonary edema, fluid overload probably secondary to aggressive IV fluid with sepsis. 2D echo was done on May 28, 2022 with four-chamber dilatation, ejection fraction 45 to 50%, severe pulmonary hypertension with PA pressure 50 to 55 mmHg [id number] score 4, started on Eliquis 5 mg twice daily Lactic acidosis secondary to sepsis, continue with supportive care Acute kidney injury, improving Super morbid obesity. NANCY BUSCH MD Jun 04, 2022 08:00
[2022-06-04] MEDS: dilTIAZem DRIP 125 MG/125 ML DRIP IV SCH (08:46)
[2022-06-04] MEDS ORDERED: MAGNESIUM 2 GM/50 ML IVPB 50 ML IV ONE (09:00)
[2022-06-04] MEDS: busPIRone 5 MG (BUSPAR) TAB PO SCH ×2 (09:54→16:28)
[2022-06-04] MEDS: FAMOTIDINE 20MG/2ML IV (PEPCID) IVP SCH (09:54)
[2022-06-04] MEDS: ALPRAZolam 0.5 MG (XANAX) TAB PO SCH (09:54)
[2022-06-04] MEDS: APIXABAN 5 MG (ELIQUIS) TABLET PO SCH ×2 (09:54→20:44)
[2022-06-04] MEDS: MICONAZOLE 2% POWDER (DESENEX AF) 90 GM TOP SCH ×2 (09:55→20:44)
[2022-06-04] MEDS: ACETAMINOPHEN 500 MG TAB (TYLENOL) PO PRN (10:38)
[2022-06-04] MEDS: MAGNESIUM 1 GM/100 ML IVPB 100 ML IV SCH (11:24)
[2022-06-04] MEDS ORDERED: ALPRAZolam 0.5 MG (XANAX) TAB PO NR (11:30)
[2022-06-04] MEDS: ALPRAZolam 1 MG (XANAX) TAB PO SCH ×2 (13:21→20:44)
--- NOTE | 2022-06-04 13:21 | Tele-ICU Progress Note ---
Subjective Date Seen by a Provider: Jun 04, 2022 Time Seen by a Provider: 13:21 Subjective/Events-last exam Tele-ICU Physician , Progress Note ) Service provided via interactive audio and video telecommunications E-CARE s ystem to a patient admitted to ICU bed in [facility]. Patient is seen today due to persistent need of ICU care Available chart/ vitals / labs / Images reviewed Video assessment done using teleICU camera, rest of exam as per RN Discussed with RN Events overnight : Afebrile hemodynamically stable Respiratory - 30% I/O = neg 2 L Drips: Pressors- no Consultants: Hospital course: (05.28) Admitted a 81 y/o from [place] with severe sepsis UTI and AF/RVR 05/29 - BIPAP 15/5 rr 20 30%- LOVES nippv , trying VT 100% 15L 06/01 - 80% , on BIPAP 18/ rr 26 , lasix 80 bid , additional dose of steroid x1 06/02- BIPAP 45% after 2L diuresis , tolerates VT for short time 06/04-- VT 25L 65% A/P Acute resp failure - 03/28 BIPAP 15/5 rr 30 40% ( did like bipap , tolerated well ) 06/01-WORSENIG --> 06/02- BIPAP 45% after 2L diuresis , tolerates VT for short time - VT 25L 65% will repeat cxr A fib - cardizem PO - Eliquis -ECHO EF 45-50% -cards follow Pulm HTN - ECHO 05/28 - RVSP 50 mmHg - cont diuresis UTI, sepsis with BACTEREMIA ( presumed E coli ) - on merrem BONIFACIO -normalized AECOPD - contr nebs - on po steroids - will give one dose IV steroids 06/01 Possble PNA - neg cov , fly Somnolence - TME , improved Chronic hypoxic ( on 3 L ) resp failure and chronic hypercarbic failure - with Super morbid obesity. and COPD Nutritions Anxiety Lines : periph , (Central Line Necessity Reviewed) Hardy: + OG: Nutrition: PO Analgesia: Anxiety/ delirium VTE Prophylaxis: eliquis Stress Ulcer Prophylaxis: na Plans in collaboration with bedside consultants and IM MDs. Discusse with Dr Vargas Discussed with RN to reach out if any questions or concerns A total of 33 minutes of critical care time was devoted to this patient today, required to treat and/or prevent further deterioration of critical care condition ( as above ) . I am remotely monitoring this patient from another state. I am unable to do the bedside exam, and history/physical and pertinent information is taken from other notes in the computer and bedside staff. Sepsis Event Evaluation Height, Weight, BMI Height: '" Weight: lbs. oz. kg; 58.58 BMI Method: Focused Exam Time of Focused Exam: 23:00 Exam Exam Patient acknowledged, consented, and participated in this virtual visit which was conducted using real time audio/video Vital Signs Date Time Temp Pulse Resp B/P (MAP) Pulse Ox O2 Delivery O2 Flow Rate FiO2 06/04/22 13:00 97 18 140/87 (104) 92 NIV Bilevel 40.00 06/04/22 12:22 96 06/04/22 12:00 36.3 06/04/22 12:00 87 28 131/70 (90) 94 NIV Bilevel 40.00 06/04/22 11:30 109 114/69 06/04/22 11:24 109 114/69 06/04/22 11:00 101 24 124/71 (88) 94 NIV Bilevel 40.00 06/04/22 10:40 95 Vapotherm 25.00 65 06/04/22 10:00 109 31 114/69 (84) 96 NIV Bilevel 40.00 06/04/22 09:00 98 12 133/77 (95) 97 NIV Bilevel 40.00 06/04/22 08:46 96 106/70 06/04/22 08:00 91 21 114/66 (82) 95 NIV Bilevel 40.00 06/04/22 07:53 36.2 06/04/22 07:03 96 06/04/22 07:00 95 13 106/70 (82) 96 NIV Bilevel 40.00 06/04/22 06:40 95 Vapotherm 25.00 70 06/04/22 06:00 87 21 107/65 (79) 94 NIV Bilevel 40.00 06/04/22 05:00 89 23 126/65 (85) 94 NIV Bilevel 40.00 06/04/22 04:15 36.2 06/04/22 04:10 Vapotherm 25.00 70 06/04/22 04:00 85 18 122/81 (95) 96 NIV Bilevel 40.00 06/04/22 03:00 88 18 129/63 (85) 94 06/04/22 02:08 92 21 96 40.00 06/04/22 02:00 88 18 123/85 (98) 97 06/04/22 01:00 87 06/04/22 01:00 89 22 122/74 (90) 96 06/04/22 00:00 NIV Bilevel 40 06/04/22 00:00 36.4 104 123/64 (83) 94 06/03/22 23:00 101 20 95 06/03/22 22:19 101 23 95 40.00 06/03/22 22:00 98 28 94 NIV Bilevel 40.00 06/03/22 21:00 101 31 120/81 (94) 96 NIV Bilevel 40.00 06/03/22 20:00 99 25 116/65 (82) 96 NIV Bilevel 40.00 06/03/22 19:40 96 Vapotherm 25.00 70 06/03/22 19:36 36.5 06/03/22 19:00 104 06/03/22 19:00 98 25 121/76 (91) 94 NIV Bilevel 40.00 06/03/22 18:38 NIV Bilevel 40.00 06/03/22 18:00 100 32 118/69 (85) 92 Vapotherm 25.00 75.00 06/03/22 17:00 97 26 119/76 (90) 94 Vapotherm 25.00 75.00 06/03/22 16:15 96 Vapotherm 25.00 70 06/03/22 16:00 92 28 149/101 (117) 94 Vapotherm 25.00 75.00 06/03/22 15:47 36.3 06/03/22 15:00 94 21 133/71 (91) 94 NIV Bilevel 40.00 06/03/22 14:31 94 Vapotherm 25.00 70 06/03/22 14:15 109 37 111/68 (82) 93 NIV Bilevel 40.00 06/03/22 13:30 93 I & O 06/04/22 07:00 Intake Total 1320 ml Output Total 4050 ml Balance -2730 ml Height & Weight Height: '" Weight: lbs. oz. kg; 58.58 BMI Method: General Appearance: No Apparent Distress, Anxious, Obese HEENT: PERRL/EOMI, Moist Mucous Membranes Neck: Full Range of Motion Respiratory: Lungs Clear, No Respiratory Distress, Decreased Breath Sounds Cardiovascular: Regular Rate, Rhythm, No Murmur Capillary Refill: Less Than 3 Seconds Peripheral Pulses: 1+ Radial Pulses (R), 1+ Radial Pulses (L) Extremity: Normal Inspection, Pedal Edema Neurologic/Psychiatric: Alert, Oriented x3 Skin: Normal Color, Warm/Dry Lymphatic: No Adenopathy Results Lab Laboratory Tests 06/03/22 03:23 06/04/22 05:26 Assessment/Plan Assessment/Plan 1 MADDI MEDEL MD Jun 04, 2022 13:21
[2022-06-04 15:31] VITALS: BP 102/71
--- NOTE | 2022-06-04 15:33 | Progress Note - Hospitalist ---
Subjective HPI/CC On Admission Date Seen by Provider: Jun 04, 2022 Time Seen by Provider: 10:00 81 year old female with PMH of COPD, HTN, PVD, cellulitis, severe obesity, anxiety, and depression presented to the ED yesterday for diffuse pain and difficulty breathing. Per the ED note, she recently had treatment initiated in the out patient setting for cellulitis of her Lower extremities as well as for UTI with macrobid. Upon arrival to the ED patient was tachycardic, tachypnic, febrile, had a WBC elevation of 28.9, and a LA of 3.13. Cefepime was started and while waiting to be admitted for severe sepsis patient was found to be in afib w/ RVR. She received 1 bolus of cardizem in the ED and a cardizem drip was initiated. When seen this morning the patient was markedly wheezing while breathing and extremely sleepy. She is alert to where she is and able to answer simple questions but would fall asleep mid-sentence when trying to obtain a more detailed account of events leading up to presentation. She did reports SOB and tiredness and denied CP, palpitations, abd pain, N/V/D, or abd pain. Subjective/Events-last exam She is still feeling anxious. .She feels short of breath. She wants to go home. Focused Exam Time of Focused Exam: 23:00 Objective Exam Vital Signs Vital Signs Date Time Temp Pulse Resp B/P (MAP) Pulse Ox O2 Delivery O2 Flow Rate FiO2 06/04/22 14:00 87 27 117/73 (88) 94 NIV Bilevel 40.00 06/04/22 12:00 36.3 06/04/22 12:00 60 Capillary Refill : Less Than 3 Seconds General Appearance: No Apparent Distress, Anxious, Obese Respiratory: Lungs Clear, No Respiratory Distress Cardiovascular: Regular Rate, Rhythm, No Murmur Gastrointestinal: Normal Bowel Sounds, Soft Extremity: Normal Inspection, Pedal Edema Neurologic/Psychiatric: Alert, No Motor/Sensory Deficits Results/Procedures Lab Laboratory Tests 06/04/22 05:26 Patient resulted labs reviewed. Assessment/Plan Assessment and Plan Assess & Plan/Chief Complaint Acute on chronic respiratory failure with hypoxia and hypercapnia Obstructive sleep apnea Obesity hypoventilation syndrome Super obesity BiPAP at night, planning to set up home BiPAP Wean vapotherm, improving Prednisone Lasix MAT protocol TeleICU following Anxiety Increase Xanax Ativan as needed Goals of care discussion Poor prognosis DNR/DNI Thrombocytopenia Stable Not DIC Heparin induced Ab pending ESBL E coli bactermia Likely UTI Continue Meropenem Atrial fibrillation Cardizem and Eliquis Cardiology following Severe sepsis, resolved Elevated LFTs, resolved Hypokalemia, resolved Hyponatremia, resolved Critical Care Critically Ill Patient Diagnosis/Problems Diagnosis/Problems (1) Acute respiratory failure with hypoxia and hypercapnia Status: Acute (2) SAILAJA (obstructive sleep apnea) Status: Acute (3) Obesity hypoventilation syndrome Status: Acute (4) Super obesity Status: Acute (5) E coli bacteremia Status: Acute (6) Infection due to extended spectrum beta-lactamase producing bacteria Status: Acute (7) Anxiety Status: Acute DAPHNIE CHERRY MD Jun 04, 2022 15:33
[2022-06-04 18:55] VITALS: BP 122/64
[2022-06-05] MEDS: RT-ALBUTEROL SULF 2.5 MG/3 ML PRE-MIX VIAL INH SCH ×6 (02:34→22:06)
[2022-06-05] MEDS: RT-IPRATROPIUM (ATROVENT) 0.5MG/2.5ML AMP IH SCH ×6 (02:34→22:06)
[2022-06-05] MEDS: MEROPENEM 500 MG in NS (IVPB) 100 ML IV SCH ×4 (03:57→21:19)
[2022-06-05] MEDS: NOREPINEPHRINE 8 MG/250 ML 250 ML IV SCH ×3 (04:05→21:18)
[2022-06-05] MEDS: LORazepam 0.5 MG (ATIVAN) TABLET PO PRN (04:48)
[2022-06-05 04:56] LABS: BASOPHILS % (AUTO) 0 % (0-10); EOSINOPHILS # (AUTO) 0.3 10^3/uL (0.0-0.3); EOSINOPHILS % (AUTO) 2 % (0-10); HEMATOCRIT 35 % (35-52); HEMOGLOBIN 11.2 g/dL (11.5-16.0); LYMPHOCYTES # (AUTO) 1.8 10^3/uL (1.0-4.0); LYMPHOCYTES % (AUTO) 16 % (12-44); MEAN CORPUSCULAR HEMOGLOBIN 29 pg (25-34); MEAN CORPUSCULAR HGB CONC 33 g/dL (32-36); MEAN CORPUSCULAR VOLUME 90 fL (80-99); MEAN PLATELET VOLUME 12.1 fL (9.0-12.2); MONOCYTES # (AUTO) 0.7 10^3/uL (0.0-1.0); MONOCYTES % (AUTO) 6 % (0-12); NEUTROPHILS # (AUTO) 8.3 10^3/uL (1.8-7.8); NEUTROPHILS % (AUTO) 74 % (42-75); PLATELET COUNT 147 10^3/uL (130-400); WHITE BLOOD COUNT 11.2 10^3/uL (4.3-11.0)
[2022-06-05 05:14] LABS: ALBUMIN 2.8 GM/DL (3.2-4.5); BILIRUBIN,TOTAL 0.9 MG/DL (0.1-1.0); CREATININE SERUM 0.74 MG/DL (0.60-1.30); MAGNESIUM 1.9 MG/DL (1.6-2.4); POTASSIUM 3.7 MMOL/L (3.6-5.0); TOTAL PROTEIN 5.9 GM/DL (6.4-8.2)
[2022-06-05] MEDS: POTASSIUM CL 10MEQ/50ML IVPB 50 ML IV SCH (05:37)
[2022-06-05] MEDS: MAGNESIUM 1 GM/100 ML IVPB 100 ML IV SCH (05:37)
[2022-06-05] MEDS: inSUlin ASPART (NovoLOG) 1 UNIT/0.01 ML (CHARGE PER UNIT) SC SCH ×3 (05:37→18:03)
[2022-06-05] MEDS: KCL 20 MEQ TAB (K-DUR) PO SCH (05:37)
[2022-06-05] MEDS: predniSONE 20 MG TAB PO SCH (06:08)
[2022-06-05] MEDS: FUROSEMIDE 40 MG/4 ML INJ (LASIX) IVP SCH ×2 (06:08→16:54)
[2022-06-05] MEDS: UMECLIDINIUM BROMIDE (INCRUSE ELLIPTA) 7'S IH SCH (07:03)
[2022-06-05] MEDS: RT--FLUTICASONE/SALMETEROL 232-14 (AIRDUO RespiCLICK) IH SCH ×2 (07:04→19:25)
[2022-06-05] MEDS: APIXABAN 5 MG (ELIQUIS) TABLET PO SCH ×2 (07:47→21:17)
[2022-06-05] MEDS: ACETAMINOPHEN 500 MG TAB (TYLENOL) PO PRN ×2 (07:47→15:54)
[2022-06-05] MEDS: FAMOTIDINE 20MG/2ML IV (PEPCID) IVP SCH (07:47)
[2022-06-05] MEDS: ALPRAZolam 1 MG (XANAX) TAB PO SCH ×3 (07:47→21:17)
[2022-06-05] MEDS: dilTIAZem DRIP 125 MG/125 ML DRIP IV SCH (07:53)
[2022-06-05] MEDS: MICONAZOLE 2% POWDER (DESENEX AF) 90 GM TOP SCH ×2 (08:05→21:18)
--- NOTE | 2022-06-05 08:26 | Diagnostic Imaging Report ---
INDICATION: Hypoxemia Portable chest 4:46 AM Heart appears enlarged. There is vascular congestion with alveolar opacification that could be edema. IMPRESSION: Probable congestive heart failure with pulmonary edema. This appears somewhat improved compared to exam dated 06/01/2022. Dictated by: Dictated on workstation # [id number]
[2022-06-05] MEDS: busPIRone 5 MG (BUSPAR) TAB PO SCH ×2 (08:36→16:54)
[2022-06-05] MEDS: VASOPRESSIN INJECTION 20 UNIT in NS (IVPB) 100 ML IV SCH ×2 (08:45→19:25)
--- NOTE | 2022-06-05 09:43 | Cardiology Progress Note ---
Subjective Date Seen by Provider: Jun 05, 2022 Time Seen by Provider: 09:42 Subjective/Events-last exam Patient was seen at bedside, laying down comfortably. No new complaint. Still on Vapotherm Review of Systems General: No Chills, No Night Sweats; Fatigue, Malaise; No Appetite, No Other HEENT: No Head Aches, No Visual Changes, No Eye Pain, No Ear Pain, No Dysphasi a, No Sinus Congestion, No Post Nasal Drip, No Sore Throat, No Other Pulmonary: Dyspnea; No Cough, No Pleuritic Chest Pain, No Other Cardiovascular: No: Chest Pain, Palpitations, Orthopnea, Paroxysmal Noc. Dyspnea, Edema, Lt Headedness, Other Focused Exam Time of Focused Exam: 23:00 Objective-Cardiology Exam Last Set of Vital Signs Vital Signs 06/05/22 06/05/22 06/05/22 07:02 07:51 09:00 Temp 36.3 Pulse 101 Resp 16 B/P (MAP) 133/53 (80) Pulse Ox 91 O2 Delivery Vapotherm O2 Flow Rate 25.00 55.00 FiO2 55 I&O Intake and Output 06/05/22 00:00 Intake Total 1200 ml Output Total 3650 ml Balance -2450 ml Intake Oral 1000 ml IV Total 200 ml Output Urine Total 3650 ml General: Alert, Oriented X3, Cooperative HEENT: Atraumatic Neck: Supple, No JVD, No Thyromegaly Lungs: Normal Air Movement, Other (Bilateral rhonchi) Heart: Normal S1, Normal S2, No Murmurs, Other (Atrial fibrillation) Abdomen: Normal Bowel Sounds, Soft, No Tenderness, No Hepatosplenomegaly, No Masses Extremities: No Clubbing, No Cyanosis, Normal Pulses, No Tenderness/Swelling, Other (Peripheral) Skin: No Rashes, No Breakdown, No Significant Lesion Neuro: Normal Gait, Normal Speech, Normal Tone, Sensation Intact Psych/Mental Status: Mood NL Results Lab Laboratory Tests 06/05/22 04:24 A/P-Cardiology Admission Diagnosis Urosepsis Lactic acidosis Atrial fibrillation Acute respiratory failure Assessment/Plan Urosepsis, lactic acidosis E. coli bacteremia Improved Acute respiratory failure, hypoxemic, hypercapnic. Currently on Vapotherm, significantly better today Responding well to diuretics and breathing treatment. Continue to monitor Atrial fibrillation with rapid ventricular response, new onset Tolerating oral Cardizem, heart rate is better controlled Cannot tolerate having a KENNETH with cardioversion due to her respiratory failure. Conservative management is recommended Pulmonary edema, fluid overload probably secondary to aggressive IV fluid with s epsis. 2D echo was done on May 28, 2022 with four-chamber dilatation, ejection fraction 45 to 50%, severe pulmonary hypertension with PA pressure 50 to 55 mmHg [id number] score 4, started on Eliquis 5 mg twice daily Lactic acidosis secondary to sepsis, continue with supportive care Acute kidney injury, improving Super morbid obesity. NANCY BUSCH MD Jun 05, 2022 09:43
--- NOTE | 2022-06-05 12:06 | Tele-ICU Progress Note ---
Subjective Date Seen by a Provider: Jun 05, 2022 Time Seen by a Provider: 12:05 Subjective/Events-last exam Tele-ICU Physician , Progress Note ) Service provided via interactive audio and video telecommunications E-CARE s shellytem to a patient admitted to ICU bed in [facility]. Patient is seen today due to persistent need of ICU care Available chart/ vitals / labs / Images reviewed Video assessment done using teleICU camera, rest of exam as per RN Discussed with RN Events overnight : Afebrile hemodynamically stable Respiratory - 30% I/O = neg 2 L Drips: Pressors- no Consultants: Hospital course: (05.28) Admitted a 81 y/o from [place] with severe sepsis UTI and AF/RVR 05/29 - BIPAP 15/5 rr 20 30%- LOVES nippv , trying [place] 100% 15L 06/01 WORSENIG 80% , on BIPAP 18/ rr 26 , lasix 80 bid , additional dose of steroid x1 06/02- BIPAP 45% after 2L diuresis , tolerates VT for short time /-- VT 25L 65% 2/3 -VT 25L 55% , neg 2L i/o A/P Acute resp failure - 03/28 BIPAP 15/5 rr 30 40% ( did like bipap , tolerated well ) 06/01-WORSENIG --> 06/02- BIPAP 45% after 2L diuresis , tolerates VT - VT 25L 55% , neg 2L i/o- CONT DIURESIS ( cxr is still with pulm edema ) A fib - cardizem PO - Eliquis -ECHO EF 45-50% -cards follow Pulm HTN - ECHO 05/28 - RVSP 50 mmHg - CONT DIURESIS UTI, sepsis with BACTEREMIA ( presumed E coli ) - on merrem BONIFACIO -normalized AECOPD - contr nebs - on po steroids - will give one dose IV steroids 06/01 Possble PNA - neg cov , fly Somnolence - TME , improved Chronic hypoxic ( on 3 L ) resp failure and chronic hypercarbic failure - with Super morbid obesity. and COPD Nutritions - tolerates Po Anxiety - slowly better Lines : periph , (Central Line Necessity Reviewed) Hardy: + OG: Nutrition: PO Analgesia: Anxiety/ delirium VTE Prophylaxis: eliquis Stress Ulcer Prophylaxis: na Plans in collaboration with bedside consultants and IM MDs. Discussed with RN to reach out if any questions or concerns A total of 33 minutes of critical care time was devoted to this patient today, required to treat and/or prevent further deterioration of critical care condition ( as above ) . I am remotely monitoring this patient from another state. I am unable to do the bedside exam, and history/physical and pertinent information is taken from other notes in the computer and bedside staff. Sepsis Event Evaluation Height, Weight, BMI Height: '" Weight: lbs. oz. kg; 57.48 BMI Method: Focused Exam Time of Focused Exam: 23:00 Exam Exam Patient acknowledged, consented, and participated in this virtual visit which was conducted using real time audio/video Vital Signs Date Time Temp Pulse Resp B/P (MAP) Pulse Ox O2 Delivery O2 Flow Rate FiO2 06/05/22 11:00 93 111/68 (86) 92 Vapotherm 25.00 55.00 06/05/22 10:25 91 Vapotherm 20.00 50 06/05/22 10:00 82 31 136/66 (86) 93 Vapotherm 25.00 55.00 06/05/22 09:00 101 16 133/53 (80) 91 Vapotherm 25.00 55.00 06/05/22 08:00 86 28 135/60 (79) 91 Vapotherm 25.00 55.00 06/05/22 07:53 92 143/77 06/05/22 07:51 36.3 06/05/22 07:02 93 Vapotherm 25.00 55 06/05/22 07:00 106 06/05/22 07:00 93 24 144/71 (91) 93 Vapotherm 25.00 55.00 06/05/22 06:00 97 19 136/65 (88) 97 Vapotherm 25.00 55.00 06/05/22 05:00 88 26 121/63 (82) 94 Vapotherm 25.00 55.00 06/05/22 04:08 36.6 Vapotherm 25.00 55.00 06/05/22 04:05 92 122/64 06/05/22 04:00 36.5 NIV Bilevel 35.00 06/05/22 04:00 92 21 122/64 (83) 98 NIV Bilevel 35.00 06/05/22 04:00 98 Vapotherm 25.00 55 06/05/22 03:00 86 22 128/58 (81) 98 NIV Bilevel 40.00 06/05/22 02:35 81 23 98 35.00 06/05/22 02:00 81 20 120/57 (78) 99 NIV Bilevel 40.00 06/05/22 01:00 80 06/05/22 01:00 88 20 114/54 (74) 99 NIV Bilevel 40.00 06/05/22 00:00 86 19 121/56 (77) 99 NIV Bilevel 40.00 06/04/22 23:59 98 NIV Bilevel 40 06/04/22 23:17 36.8 06/04/22 23:00 85 19 128/57 (80) 98 NIV Bilevel 40.00 06/04/22 22:28 84 22 98 40.00 06/04/22 22:00 79 17 143/81 (101) 97 NIV Bilevel 40.00 06/04/22 21:00 87 19 138/79 (98) 98 NIV Bilevel 40.00 06/04/22 20:00 NIV Bilevel 40 06/04/22 20:00 87 22 122/64 (83) 97 NIV Bilevel 40.00 06/04/22 19:41 37.1 06/04/22 19:00 79 18 125/69 (87) 98 NIV Bilevel 40.00 06/04/22 19:00 81 06/04/22 18:55 84 19 98 40.00 06/04/22 18:24 80 135/71 06/04/22 18:00 80 26 135/71 (92) 98 NIV Bilevel 40.00 06/04/22 17:00 64 21 134/81 (98) 97 NIV Bilevel 40.00 06/04/22 16:00 68 25 129/72 (91) 97 NIV Bilevel 40.00 06/04/22 15:51 35.7 06/04/22 15:33 Vapotherm 25.00 55 06/04/22 15:31 68 25 96 40.00 06/04/22 15:00 67 18 102/71 (81) 92 NIV Bilevel 40.00 06/04/22 14:00 87 27 117/73 (88) 94 NIV Bilevel 40.00 06/04/22 13:00 97 18 140/87 (104) 92 NIV Bilevel 40.00 06/04/22 12:22 96 I & O 06/05/22 06:59 Intake Total 1500 ml Output Total 3650 ml Balance -2150 ml Height & Weight Height: '" Weight: lbs. oz. kg; 57.48 BMI Method: General Appearance: No Apparent Distress, Anxious, Obese HEENT: PERRL/EOMI, Moist Mucous Membranes Neck: Full Range of Motion Respiratory: Lungs Clear, No Respiratory Distress Cardiovascular: Regular Rate, Rhythm, No Murmur Capillary Refill: Less Than 3 Seconds Peripheral Pulses: 1+ Radial Pulses (R), 1+ Radial Pulses (L) Extremity: Normal Inspection, Pedal Edema Neurologic/Psychiatric: Alert, No Motor/Sensory Deficits Skin: Normal Color, Warm/Dry Lymphatic: No Adenopathy Results Lab Laboratory Tests 06/04/22 05:26 06/05/22 04:24 Assessment/Plan Assessment/Plan 1 MADDI MEDEL MD Jun 05, 2022 12:06
[2022-06-05 14:34] VITALS: BP 161/72
--- NOTE | 2022-06-05 19:23 | Progress Note - Hospitalist ---
Subjective HPI/CC On Admission Date Seen by Provider: Jun 05, 2022 Time Seen by Provider: 10:05 81 year old female with PMH of COPD, HTN, PVD, cellulitis, severe obesity, anxiety, and depression presented to the ED yesterday for diffuse pain and difficulty breathing. Per the ED note, she recently had treatment initiated in the out patient setting for cellulitis of her Lower extremities as well as for UTI with macrobid. Upon arrival to the ED patient was tachycardic, tachypnic, febrile, had a WBC elevation of 28.9, and a LA of 3.13. Cefepime was started and while waiting to be admitted for severe sepsis patient was found to be in afib w/ RVR. She received 1 bolus of cardizem in the ED and a cardizem drip was initiated. When seen this morning the patient was markedly wheezing while breathing and extremely sleepy. She is alert to where she is and able to answer simple questions but would fall asleep mid-sentence when trying to obtain a more detailed account of events leading up to presentation. She did reports SOB and tiredness and denied CP, palpitations, abd pain, N/V/D, or abd pain. Subjective/Events-last exam She is less anxious today. She has no complaints. Focused Exam Time of Focused Exam: 23:00 Objective Exam Vital Signs Vital Signs Date Time Temp Pulse Resp B/P (MAP) Pulse Ox O2 Delivery O2 Flow Rate FiO2 06/05/22 18:00 101 10 146/90 (122) 98 Vapotherm 25.00 25.00 06/05/22 16:00 36.9 06/05/22 16:00 50 Capillary Refill : Less Than 3 Seconds General Appearance: No Apparent Distress, Obese Respiratory: Lungs Clear, No Respiratory Distress Cardiovascular: Regular Rate, Rhythm, No Murmur Gastrointestinal: Normal Bowel Sounds, Soft Extremity: No Inflammation; Swelling Neurologic/Psychiatric: Alert, Normal Mood/Affect Skin: Normal Color, Warm/Dry Results/Procedures Lab Laboratory Tests 06/05/22 04:24 Patient resulted labs reviewed. Assessment/Plan Assessment and Plan Assess & Plan/Chief Complaint Acute on chronic respiratory failure with hypoxia and hypercapnia Obstructive sleep apnea Obesity hypoventilation syndrome Super obesity Acute on chronic HFpEF BiPAP at night, planning to set up home BiPAP Wean vapotherm, improving Prednisone Lasix MAT protocol TeleICU following Anxiety Continue Xanax Ativan as needed Goals of care discussion Poor prognosis DNR/DNI Thrombocytopenia Improving Not DIC Heparin induced Ab negative ESBL E coli bactermia Likely UTI Continue Meropenem Atrial fibrillation Cardizem and Eliquis Cardiology following Severe sepsis, resolved Elevated LFTs, resolved Hypokalemia, resolved Hyponatremia, resolved Critical Care Critically Ill Patient Diagnosis/Problems Diagnosis/Problems (1) Acute respiratory failure with hypoxia and hypercapnia Status: Acute (2) SAILAJA (obstructive sleep apnea) Status: Acute (3) Obesity hypoventilation syndrome Status: Acute (4) Super obesity Status: Acute (5) E coli bacteremia Status: Acute (6) Infection due to extended spectrum beta-lactamase producing bacteria Status: Acute (7) Anxiety Status: Acute DAPHNIE CHERRY MD Jun 05, 2022 19:23
[2022-06-05] MEDS: ACETAMINOPHEN ER 650 MG (TYLENOL ARTHRITIS) PO PRN (21:42)
[2022-06-05 22:09] VITALS: BP 149/69
[2022-06-06] MEDS: inSUlin ASPART (NovoLOG) 1 UNIT/0.01 ML (CHARGE PER UNIT) SC SCH ×5 (00:41→23:36)
[2022-06-06] MEDS: RT-IPRATROPIUM (ATROVENT) 0.5MG/2.5ML AMP IH SCH ×5 (03:01→22:01)
[2022-06-06] MEDS: RT-ALBUTEROL SULF 2.5 MG/3 ML PRE-MIX VIAL INH SCH ×5 (03:02→22:01)
[2022-06-06] MEDS: MEROPENEM 500 MG in NS (IVPB) 100 ML IV SCH ×4 (03:36→20:56)
[2022-06-06 06:05] LABS: POTASSIUM 3.6 MMOL/L (3.6-5.0)
[2022-06-06 06:07] LABS: CALCIUM 9.3 MG/DL (8.5-10.1)
[2022-06-06 06:08] LABS: TOTAL PROTEIN 6.2 GM/DL (6.4-8.2)
[2022-06-06 06:10] LABS: BILIRUBIN,TOTAL 0.8 MG/DL (0.1-1.0)
[2022-06-06 06:11] LABS: PHOSPHORUS 3.3 MG/DL (2.3-4.7)
[2022-06-06 06:12] LABS: CREATININE SERUM 0.75 MG/DL (0.60-1.30)
[2022-06-06 06:14] LABS: MAGNESIUM 1.9 MG/DL (1.6-2.4)
[2022-06-06] MEDS: POTASSIUM CL 10MEQ/50ML IVPB 50 ML IV SCH (06:20)
[2022-06-06] MEDS: NOREPINEPHRINE 8 MG/250 ML 250 ML IV SCH (06:21)
[2022-06-06] MEDS: MAGNESIUM 1 GM/100 ML IVPB 100 ML IV SCH (06:21)
[2022-06-06 06:24] LABS: BASOPHILS % (AUTO) 0 % (0-10); EOSINOPHILS # (AUTO) 0.3 10^3/uL (0.0-0.3); EOSINOPHILS % (AUTO) 2 % (0-10); HEMATOCRIT 36 % (35-52); HEMOGLOBIN 11.6 g/dL (11.5-16.0); LYMPHOCYTES # (AUTO) 1.9 10^3/uL (1.0-4.0); LYMPHOCYTES % (AUTO) 14 % (12-44); MEAN CORPUSCULAR HEMOGLOBIN 29 pg (25-34); MEAN CORPUSCULAR HGB CONC 32 g/dL (32-36); MEAN CORPUSCULAR VOLUME 91 fL (80-99); MEAN PLATELET VOLUME 10.2 fL (9.0-12.2); MONOCYTES % (AUTO) 7 % (0-12); NEUTROPHILS # (AUTO) 10.6 10^3/uL (1.8-7.8); NEUTROPHILS % (AUTO) 76 % (42-75); PLATELET COUNT 304 10^3/uL (130-400)
[2022-06-06] MEDS: predniSONE 20 MG TAB PO SCH (06:29)
[2022-06-06] MEDS: FUROSEMIDE 40 MG/4 ML INJ (LASIX) IVP SCH ×2 (06:30→16:34)
[2022-06-06] MEDS: KCL 20 MEQ TAB (K-DUR) PO SCH (06:34)
[2022-06-06 06:57] LABS: EOSINOPHILS % (MANUAL) 2 %; LYMPHOCYTES % (MANUAL) 14 %; MONOCYTES % (MANUAL) 8 %; NEUTROPHILS % (MANUAL) 76 %
[2022-06-06 06:58] LABS: PLATELET CLUMPS OCCASIONAL; RBC MORPH NORMAL
[2022-06-06] MEDS ORDERED: KCL 20 MEQ TAB (K-DUR) PO ONE (08:00)
[2022-06-06] MEDS: VASOPRESSIN INJECTION 20 UNIT in NS (IVPB) 100 ML IV SCH (08:33)
[2022-06-06] MEDS: APIXABAN 5 MG (ELIQUIS) TABLET PO SCH ×2 (08:53→20:55)
[2022-06-06] MEDS: ALPRAZolam 1 MG (XANAX) TAB PO SCH ×3 (08:55→20:55)
[2022-06-06] MEDS: FAMOTIDINE 20MG/2ML IV (PEPCID) IVP SCH (08:55)
--- NOTE | 2022-06-06 08:56 | Tele-ICU Progress Note ---
Subjective Date Seen by a Provider: Jun 06, 2022 Subjective/Events-last exam This virtual visit was conducted using real time audio/video. Thank you for asking us to see this patient for respiratory insufficiency due to AECOPD, urosepsis. Also afib/RVR, anxiety and delirium. PE: Drowsy,morbidly obese. VSS. afib 90-100. O2 sat 95% on VT20/50% HEENT: No obvious masses, adenopathy or JVD. Chest: clear to auscultation, diminished. CV: Irreg S1 S2 No murmur or added sounds. Abd: Non-tender. Bowel sounds Y. : Unremarkable. Hardy Y. 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 No obvious focal findings. Extremities: 2+ edema. Capillary refill < 3 seconds. Skin: unremarkable. Results: Elevated WCC 14, BUN 36, BG 131. Decreased Hb 11.6, Na 132. CXR: Poor quality, hyperinflated, congested but improved slightly. Available chart/ vitals / labs / images reviewed. Video assessment done using teleICU camera, rest of exam as per RN. A/P: Respiratory insufficiency: Continue present management with BiPAP/VT, Incruse, pred., airduo and nebs. Critical Care: critically ill patient. Cont. abx, Eliquis, Cardizem, Buspar, Celexa lasix, SSI, pepcid. Possible hospice conversation later. Discussed with RN Margret. Asked RN to reach out to eICU if any questions or concerns later. Time spent with patient/coordination of care with other health professionals (mins): 22 Sepsis Event Evaluation Height, Weight, BMI Height: '" Weight: lbs. oz. kg; 57.48 BMI Method: Focused Exam Time of Focused Exam: 23:00 Exam Exam Patient acknowledged, consented, and participated in this virtual visit which was conducted using real time audio/video Vital Signs Date Time Temp Pulse Resp B/P (MAP) Pulse Ox O2 Delivery O2 Flow Rate FiO2 06/06/22 08:00 92 20 140/66 (91) 94 Vapotherm 20.00 50.00 06/06/22 08:00 36.2 06/06/22 07:17 95 Vapotherm 20.00 50 06/06/22 07:00 98 06/06/22 07:00 96 23 136/81 (99) 96 Vapotherm 20.00 50.00 06/06/22 06:00 89 23 120/62 (81) 96 Vapotherm 20.00 50.00 06/06/22 05:00 84 24 121/61 (81) 94 Vapotherm 06/06/22 04:05 Vapotherm 20.00 50 06/06/22 04:00 36.7 82 24 136/70 (92) 92 Vapotherm 06/06/22 03:03 92 Vapotherm 20.00 50 06/06/22 03:00 81 23 143/70 (94) 98 Vapotherm 20.00 50.00 06/06/22 02:10 95 Vapotherm 20.00 50.00 06/06/22 02:00 89 23 151/85 (107) 98 Vapotherm 20.00 50.00 06/06/22 01:00 96 23 149/67 (94) 98 Vapotherm 20.00 50.00 06/06/22 01:00 87 06/06/22 00:00 NIV Bilevel 30 06/06/22 00:00 96 21 134/70 (91) 98 Vapotherm 20.00 50.00 06/06/22 00:00 36.0 06/05/22 23:00 92 25 135/67 (89) 98 Vapotherm 20.00 50.00 06/05/22 22:09 90 26 95 35.00 06/05/22 22:00 96 27 149/69 (95) 93 Vapotherm 20.00 50.00 06/05/22 21:00 107 26 157/80 (105) 94 Vapotherm 20.00 50.00 06/05/22 20:02 99 26 122/77 (94) 90 06/05/22 19:59 36.5 06/05/22 19:45 96 24 90 06/05/22 19:45 Vapotherm 20.00 50 06/05/22 19:30 92 27 138/74 (86) 94 06/05/22 19:20 96 Vapotherm 20.00 50 06/05/22 19:15 95 25 94 06/05/22 19:00 100 06/05/22 19:00 93 23 144/60 (79) 94 06/05/22 18:00 101 10 146/90 (122) 98 Vapotherm 25.00 25.00 06/05/22 17:00 96 27 150/76 (88) 91 Vapotherm 25.00 25.00 06/05/22 16:00 36.9 06/05/22 16:00 89 20 142/67 (92) 92 Vapotherm 25.00 25.00 06/05/22 16:00 Vapotherm 20.00 50 06/05/22 15:00 99 20 109/88 (94) 94 Vapotherm 25.00 25.00 06/05/22 14:34 36.3 91 92 50 06/05/22 14:32 92 Vapotherm 20.00 50 06/05/22 14:00 96 21 161/72 (83) 90 Vapotherm 25.00 25.00 06/05/22 13:00 89 31 153/65 (79) 91 Vapotherm 25.00 25.00 06/05/22 12:55 92 06/05/22 12:00 92 Vapotherm 25.00 06/05/22 12:00 36.4 06/05/22 12:00 36.3 93 31 111/68 (82) 92 Vapotherm 25.00 25.00 06/05/22 11:00 93 111/68 (86) 92 Vapotherm 25.00 55.00 06/05/22 10:25 91 Vapotherm 20.00 50 06/05/22 10:00 82 31 136/66 (86) 93 Vapotherm 25.00 55.00 06/05/22 09:00 101 16 133/53 (80) 91 Vapotherm 25.00 55.00 I & O 06/06/22 07:00 Intake Total 2380 ml Output Total 3190 ml Balance -810 ml Height & Weight Height: '" Weight: lbs. oz. kg; 57.48 BMI Method: General Appearance: No Apparent Distress, Obese HEENT: PERRL/EOMI, Moist Mucous Membranes Neck: Full Range of Motion Respiratory: Lungs Clear, No Respiratory Distress Cardiovascular: Regular Rate, Rhythm, No Murmur Capillary Refill: Less Than 3 Seconds Peripheral Pulses: 1+ Radial Pulses (R), 1+ Radial Pulses (L) Extremity: No Inflammation; Swelling Neurologic/Psychiatric: Alert, Normal Mood/Affect Skin: Normal Color, Warm/Dry Lymphatic: No Adenopathy Results Lab Laboratory Tests 06/05/22 04:24 06/06/22 04:34 06/06/22 06:19 Assessment/Plan Assessment/Plan See free text. Critical Care: Critically Ill Patient JACOB LIEBERMAN MD Jun 06, 2022 08:56
[2022-06-06] MEDS: busPIRone 5 MG (BUSPAR) TAB PO SCH ×2 (09:04→16:33)
[2022-06-06] MEDS: MICONAZOLE 2% POWDER (DESENEX AF) 90 GM TOP SCH ×2 (09:05→21:34)
[2022-06-06] MEDS: UMECLIDINIUM BROMIDE (INCRUSE ELLIPTA) 7'S IH SCH (10:28)
[2022-06-06] MEDS: RT--FLUTICASONE/SALMETEROL 232-14 (AIRDUO RespiCLICK) IH SCH ×2 (10:28→22:04)
--- NOTE | 2022-06-06 13:17 | Cardiology Progress Note ---
Subjective Date Seen by Provider: Jun 06, 2022 Time Seen by Provider: 11:40 Subjective/Events-last exam No acute issues overnight. Pt states breathing improved. On HF NC currently saturating > 96%. Pt seen with 2 cups of juice and a 1L water bottle in fron t of her today. Denies cp. Review of Systems General: No Chills, No Night Sweats, No Fatigue, No Malaise, No Appetite, No Other HEENT: No Head Aches, No Visual Changes, No Eye Pain, No Ear Pain, No Dysphasia, No Sinus Congestion, No Post Nasal Drip, No Sore Throat, No Other Pulmonary: Dyspnea Cardiovascular: No: Chest Pain, Palpitations, Orthopnea, Paroxysmal Noc. D yspnea, Edema, Lt Headedness, Other Gastrointestinal: No: Nausea, Vomiting, Abdominal Pain, Diarrhea, Constipation, Melena, Hematochezia, Other Genitourinary: No Dysuria, No Frequency, No Incontinence, No Hematuria, No Retention, No Other Focused Exam Time of Focused Exam: 23:00 Objective-Cardiology Exam Last Set of Vital Signs Vital Signs 06/06/22 06/06/22 06/06/22 06/06/22 10:28 11:54 12:00 12:39 Temp 36.9 Pulse 92 Resp 25 B/P (MAP) 136/66 (93) Pulse Ox 99 O2 Delivery High Flow N/C O2 Flow Rate 10.00 FiO2 45 I&O Intake and Output 06/06/22 00:00 Intake Total 2800 ml Output Total 3275 ml Balance -475 ml Intake Oral 2600 ml IV Total 200 ml Output Urine Total 3275 ml General: Alert, Oriented X3, Cooperative HEENT: Atraumatic Neck: Supple, No Thyromegaly, No LAD, Other (+ JVD to tragus of hear) Lungs: Normal Air Movement, Other (Bilateral rhonchi) Heart: Normal S1, Normal S2, No Murmurs, Other (Atrial fibrillation) Abdomen: Normal Bowel Sounds, Soft, No Tenderness, No Hepatosplenomegaly, No Masses Extremities: No Clubbing, No Cyanosis, Normal Pulses, No Tenderness/Swelling, Other (2+ BLE edema to knees) Skin: No Rashes, No Breakdown, No Significant Lesion Neuro: Normal Gait, Normal Speech, Normal Tone, Sensation Intact Psych/Mental Status: Mood NL Results Lab Laboratory Tests 06/06/22 04:34 06/06/22 06:19 A/P-Cardiology Admission Diagnosis Urosepsis Lactic acidosis Atrial fibrillation Acute respiratory failure Assessment/Plan 81F with hx of obesity hypoventilation syndrome, morbid obesity, AF, urosepsis with E coli bacteremia who presents for evaluation of LE edema and Sob. ## E, coli Urosepsis- cxs sensitive to Gent and carbapenemis - cont Meropenem ## Acute respiratory failure, hypoxemic, hypercapnic.- obesity hypoventilation sydrome - Agree with transition to OK from Vapotherm - cont with diuresis - further plans as per ICU ## Atrial fibrillation with rapid ventricular response, new onset HRs 80-110s, BPs 120-150s systolic; Target HRs < 115bpm - Cont Dilt 240 po Bid - cont eliquis - cannot tolerate having a KENNETH with cardioversion due to her respiratory failure; conservative management is recommended ## Pulmonary edema, fluid overload probably secondary to aggressive IV fluid with sepsis. - 2D echo was done on May 28, 2022 with four-chamber dilatation, ejection f raction 45 to 50%, severe pulmonary hypertension with PA pressure 50 to 55 mmHg - cont with lasix 80 iv bid - implement fluid restriction of 1.5L - check BNP, may be falsely low 2/2 obesity ## Morbid obesity. LAWANDA CORTEZ MD Jun 06, 2022 13:17
--- NOTE | 2022-06-06 14:09 | Progress Note - Hospitalist ---
Subjective HPI/CC On Admission Date Seen by Provider: Jun 06, 2022 Time Seen by Provider: 12:00 81 year old female with PMH of COPD, HTN, PVD, cellulitis, severe obesity, anxiety, and depression presented to the ED yesterday for diffuse pain and difficulty breathing. Per the ED note, she recently had treatment initiated in the out patient setting for cellulitis of her Lower extremities as well as for UTI with macrobid. Upon arrival to the ED patient was tachycardic, tachypnic, febrile, had a WBC elevation of 28.9, and a LA of 3.13. Cefepime was started and while waiting to be admitted for severe sepsis patient was found to be in afib w/ RVR. She received 1 bolus of cardizem in the ED and a cardizem drip was initiated. When seen this morning the patient was markedly wheezing while breathing and extremely sleepy. She is alert to where she is and able to answer simple questions but would fall asleep mid-sentence when trying to obtain a more detailed account of events leading up to presentation. She did reports SOB and tiredness and denied CP, palpitations, abd pain, N/V/D, or abd pain. Subjective/Events-last exam She is doing well. Her children are visiting. She denies shortness of breath. Her anxiety is better. She did not want to wear her BIPAP last night. She says it was uncomfortable. We discussed the options of continuing aggressive care vs changing to a comfort-based approach. She says she will wear the BiPAP at this time. She was informed that she can change her decision at any time if it becomes too burdensome. Focused Exam Time of Focused Exam: 23:00 Objective Exam Vital Signs Vital Signs Date Time Temp Pulse Resp B/P (MAP) Pulse Ox O2 Delivery O2 Flow Rate FiO2 06/06/22 12:39 High Flow N/C 10.00 06/06/22 12:39 99 06/06/22 12:00 92 25 136/66 (93) 06/06/22 11:54 36.9 06/06/22 10:28 45 Capillary Refill : Less Than 3 Seconds General Appearance: No Apparent Distress, Chronically ill, Obese Respiratory: No Respiratory Distress, Decreased Breath Sounds Cardiovascular: Regular Rate, Rhythm, No Murmur Gastrointestinal: Normal Bowel Sounds, Soft Extremity: No Inflammation; Pedal Edema, Swelling Neurologic/Psychiatric: Alert, Motor Weakness Skin: Other (dry, wrinkled lower extremities) Results/Procedures Lab Laboratory Tests 06/06/22 04:34 06/06/22 06:19 Patient resulted labs reviewed. Assessment/Plan Assessment and Plan Assess & Plan/Chief Complaint Acute on chronic respiratory failure with hypoxia and hypercapnia Obstructive sleep apnea Obesity hypoventilation syndrome Super obesity Acute on chronic HFpEF BiPAP at night, compliance encouraged, planning to set up home BiPAP Wean vapotherm, improving, hopeful to transition to nasal cannula today Prednisone Lasix MAT protocol Transfer to medical floor today Anxiety Continue Xanax Ativan as needed Goals of care discussion Poor prognosis DNR/DNI Hospice/comfort care introduced, not planning to pursue at this time Thrombocytopenia Improved Not DIC Heparin induced Ab negative ESBL E coli bactermia Likely UTI Continue Meropenem Atrial fibrillation Cardizem and Eliquis Cardiology following Severe sepsis, resolved Elevated LFTs, resolved Hypokalemia, resolved Hyponatremia, resolved Critical Care Critically Ill Patient Diagnosis/Problems Diagnosis/Problems (1) Acute respiratory failure with hypoxia and hypercapnia Status: Acute (2) SAILAJA (obstructive sleep apnea) Status: Acute (3) Obesity hypoventilation syndrome Status: Acute (4) Super obesity Status: Acute (5) E coli bacteremia Status: Acute (6) Infection due to extended spectrum beta-lactamase producing bacteria Status: Acute (7) Anxiety Status: Acute DAPHNIE CHERRY MD Jun 06, 2022 14:09
[2022-06-06 16:00] VITALS: BP 144/67
[2022-06-06] MEDS: LORazepam 0.5 MG (ATIVAN) TABLET PO PRN (18:00)
[2022-06-06] MEDS ORDERED: hydrALAZINE (APESOLINE) 20 MG/ML VIAL IV PRN (18:15)
[2022-06-06 19:17] VITALS: BP 144/77
[2022-06-06 23:21] VITALS: BP 164/89
[2022-06-07] MEDS: RT-ALBUTEROL SULF 2.5 MG/3 ML PRE-MIX VIAL INH SCH ×6 (03:34→21:06)
[2022-06-07] MEDS: RT-IPRATROPIUM (ATROVENT) 0.5MG/2.5ML AMP IH SCH ×6 (03:34→21:06)
[2022-06-07 03:38] VITALS: BP 171/84
[2022-06-07] MEDS: MEROPENEM 500 MG in NS (IVPB) 100 ML IV SCH ×4 (04:10→21:02)
[2022-06-07 05:49] LABS: BASOPHILS % (AUTO) 0 % (0-10); EOSINOPHILS % (AUTO) 2 % (0-10); MEAN PLATELET VOLUME 11.4 fL (9.0-12.2); MONOCYTES % (AUTO) 8 % (0-12)
[2022-06-07 05:51] LABS: EOSINOPHILS # (AUTO) 0.3 10^3/uL (0.0-0.3); HEMATOCRIT 37 % (35-52); HEMOGLOBIN 11.8 g/dL (11.5-16.0); LYMPHOCYTES # (AUTO) 1.9 10^3/uL (1.0-4.0); LYMPHOCYTES % (AUTO) 16 % (12-44); MEAN CORPUSCULAR HEMOGLOBIN 29 pg (25-34); MEAN CORPUSCULAR HGB CONC 32 g/dL (32-36); MEAN CORPUSCULAR VOLUME 91 fL (80-99); NEUTROPHILS # (AUTO) 8.9 10^3/uL (1.8-7.8); NEUTROPHILS % (AUTO) 72 % (42-75); WHITE BLOOD COUNT 12.3 10^3/uL (4.3-11.0)
[2022-06-07 06:15] LABS: ALBUMIN 2.9 GM/DL (3.2-4.5); BILIRUBIN,TOTAL 0.8 MG/DL (0.1-1.0); CALCIUM 9.4 MG/DL (8.5-10.1); CREATININE SERUM 0.72 MG/DL (0.60-1.30); MAGNESIUM 1.7 MG/DL (1.6-2.4); PHOSPHORUS 2.7 MG/DL (2.3-4.7); POTASSIUM 3.5 MMOL/L (3.6-5.0); TOTAL PROTEIN 6.3 GM/DL (6.4-8.2)
[2022-06-07] MEDS: inSUlin ASPART (NovoLOG) 1 UNIT/0.01 ML (CHARGE PER UNIT) SC SCH ×3 (06:18→19:44)
[2022-06-07] MEDS: FUROSEMIDE 40 MG/4 ML INJ (LASIX) IVP SCH ×2 (06:24→16:14)
[2022-06-07] MEDS: predniSONE 20 MG TAB PO SCH (06:24)
[2022-06-07 06:38] LABS: SMEAR SCAN COMMENT YES
[2022-06-07 06:39] LABS: PLATELET COUNT 191 10^3/uL (130-400)
[2022-06-07 07:36] VITALS: BP 144/70
[2022-06-07] MEDS: APIXABAN 5 MG (ELIQUIS) TABLET PO SCH ×2 (09:14→21:01)
[2022-06-07] MEDS: FAMOTIDINE 20MG/2ML IV (PEPCID) IVP SCH (09:14)
[2022-06-07] MEDS: ALPRAZolam 1 MG (XANAX) TAB PO SCH ×3 (09:14→21:01)
[2022-06-07] MEDS: MICONAZOLE 2% POWDER (DESENEX AF) 90 GM TOP SCH ×3 (09:14→21:04)
[2022-06-07] MEDS: busPIRone 5 MG (BUSPAR) TAB PO SCH ×2 (09:16→16:18)
[2022-06-07] MEDS: UMECLIDINIUM BROMIDE (INCRUSE ELLIPTA) 7'S IH SCH (09:34)
[2022-06-07] MEDS: RT--FLUTICASONE/SALMETEROL 232-14 (AIRDUO RespiCLICK) IH SCH ×2 (09:34→21:26)
--- NOTE | 2022-06-07 09:47 | Progress Note - Hospitalist ---
Subjective HPI/CC On Admission Date Seen by Provider: Jun 07, 2022 Time Seen by Provider: 09:00 81 year old female with PMH of COPD, HTN, PVD, cellulitis, severe obesity, anxiety, and depression presented to the ED yesterday for diffuse pain and difficulty breathing. Per the ED note, she recently had treatment initiated in the out patient setting for cellulitis of her Lower extremities as well as for UTI with macrobid. Upon arrival to the ED patient was tachycardic, tachypnic, febrile, had a WBC elevation of 28.9, and a LA of 3.13. Cefepime was started and while waiting to be admitted for severe sepsis patient was found to be in afib w/ RVR. She received 1 bolus of cardizem in the ED and a cardizem drip was initiated. When seen this morning the patient was markedly wheezing while breathing and extremely sleepy. She is alert to where she is and able to answer simple questions but would fall asleep mid-sentence when trying to obtain a more detailed account of events leading up to presentation. She did reports SOB and tiredness and denied CP, palpitations, abd pain, N/V/D, or abd pain. Subjective/Events-last exam She is still sleeping this morning. She is wearing BiPAP. She appears comfortable in no distress. Focused Exam Time of Focused Exam: 23:00 Objective Exam Vital Signs Vital Signs Date Time Temp Pulse Resp B/P (MAP) Pulse Ox O2 Delivery O2 Flow Rate FiO2 06/07/22 09:35 97 Nasal Cannula 2.00 06/07/22 07:36 36.8 89 22 144/70 (94) 06/06/22 10:28 45 Capillary Refill : Less Than 3 Seconds General Appearance: No Apparent Distress, Obese Respiratory: No Respiratory Distress, Decreased Breath Sounds, Rhonci Cardiovascular: Regular Rate, Rhythm, No Murmur Gastrointestinal: Normal Bowel Sounds, Soft Extremity: No Inflammation; Swelling Neurologic/Psychiatric: Other (sleeping) Skin: Warm/Dry, Other (dry, wrinkled lower extremities) Results/Procedures Lab Laboratory Tests 06/07/22 05:26 Patient resulted labs reviewed. Assessment/Plan Assessment and Plan Assess & Plan/Chief Complaint Acute on chronic respiratory failure with hypoxia and hypercapnia Obstructive sleep apnea Obesity hypoventilation syndrome Super obesity Acute on chronic HFpEF BiPAP at night, paperwork submitted for home BiPAP Off vapotherm, now on nasal cannula Prednisone, begin taper Continue Lasix, responding well MAT protocol Cardiology following Anxiety Continue Xanax Ativan as needed Goals of care discussion Poor prognosis DNR/DNI Hospice/comfort care introduced, not planning to pursue at this time Thrombocytopenia Improved Not DIC Heparin induced Ab negative Possibly due to platelet clumping ESBL E coli bactermia Likely UTI Continue Meropenem Atrial fibrillation Cardizem and Eliquis Cardiology following Severe sepsis, resolved Elevated LFTs, resolved Hypokalemia, resolved Hyponatremia, resolved Diagnosis/Problems Diagnosis/Problems (1) Acute respiratory failure with hypoxia and hypercapnia Status: Acute (2) SAILAJA (obstructive sleep apnea) Status: Acute (3) Obesity hypoventilation syndrome Status: Acute (4) Super obesity Status: Acute (5) E coli bacteremia Status: Acute (6) Infection due to extended spectrum beta-lactamase producing bacteria Status: Acute (7) Anxiety Status: Acute DAPHNIE CHERRY MD Jun 07, 2022 09:47
[2022-06-07 11:21] VITALS: BP 118/74
--- NOTE | 2022-06-07 12:35 | Cardiology Progress Note ---
Subjective Date Seen by Provider: Jun 07, 2022 Time Seen by Provider: 11:30 Subjective/Events-last exam Pt notes her breathing improved today. Good diuresis yesterday with lasix 80 iv bid; I/O: 1400/3740 out for -2.3L. Focused Exam Time of Focused Exam: 23:00 Objective-Cardiology Exam Last Set of Vital Signs Vital Signs 06/06/22 06/07/22 10:28 11:21 Temp 36.4 Pulse 95 Resp 20 B/P (MAP) 118/74 (89) Pulse Ox 90 O2 Delivery Nasal Cannula O2 Flow Rate 6.00 6.00 FiO2 45 I&O Intake and Output 06/07/22 00:00 Intake Total 1400 ml Output Total 3740 ml Balance -2340 ml Intake Oral 1200 ml IV Total 200 ml Output Urine Total 3740 ml General: Alert, Oriented X3, Cooperative HEENT: Atraumatic Neck: Supple, No Thyromegaly, No LAD, Other (+ JVD to tragus of hear) Lungs: Other (Decreased BS bilaterally, 2+ BLE edema, + rhonchi and faint w heezing bilaterally; poor air movement) Heart: Normal S1, Normal S2, No Murmurs, Other (Atrial fibrillation) Abdomen: Normal Bowel Sounds, Soft, No Tenderness, No Hepatosplenomegaly, No Masses Extremities: No Clubbing, No Cyanosis, Normal Pulses, Other (2+ BLE edema; ) Skin: No Rashes, No Breakdown, No Significant Lesion Neuro: Normal Gait, Normal Speech, Normal Tone, Sensation Intact Psych/Mental Status: Mood NL Results Lab Laboratory Tests 06/07/22 05:26 A/P-Cardiology Admission Diagnosis Urosepsis Lactic acidosis Atrial fibrillation Acute respiratory failure Assessment/Plan 81F with hx of obesity hypoventilation syndrome, morbid obesity, AF, urosepsis with E coli bacteremia who presents for evaluation of LE edema and Sob. ## E, coli Urosepsis- cxs sensitive to Gent and carbapenemis - cont Meropenem ## Acute respiratory failure (likely compination of CHF + COPD exacerbation + obesity hypoventilation sydrome) - cont suppl O2 - cont with diuresis- lasix 80 iv bid for now (pt still with at least 2+ BLE edema to knees)- will transition to lasix po in coming days - further plans as per ICU-hospitalist team - f/u CXR in AM ## HTN: BPs up to 170s systolic - start nifedpine xl 30mg po QD ## Atrial fibrillation with rapid ventricular response, new onset HRs 80-100s, BPs 110-170s systolic; Target HRs < 115bpm - Cont Dilt 240 po Bid - cont eliquis - cannot tolerate having a KENNETH with cardioversion due to her respiratory failure; conservative management is recommended ## Pulmonary edema, fluid overload probably secondary to aggressive IV fluid with sepsis. - 2D echo was done on May 28, 2022 with four-chamber dilatation, ejection fraction 45 to 50%, severe pulmonary hypertension with PA pressure 50 to 55 mmHg - cont with lasix 80 iv bid and cont fluid restriction of 1.5L - BNP 118, suspect falsely low 2/2 obesity ## Morbid obesity. LAWANDA CORTEZ MD Jun 07, 2022 12:35
[2022-06-07] MEDS: ACETAMINOPHEN 500 MG TAB (TYLENOL) PO PRN (13:37)
[2022-06-07] MEDS: LORazepam 0.5 MG (ATIVAN) TABLET PO PRN (13:37)
[2022-06-07 15:23] VITALS: BP 142/65
[2022-06-07 19:55] VITALS: BP 142/64
[2022-06-07 23:56] VITALS: BP 129/68
[2022-06-08] VITALS (7 sets, daily range): BP systolic 130–184; BP diastolic 66–77
[2022-06-08] MEDS: inSUlin ASPART (NovoLOG) 1 UNIT/0.01 ML (CHARGE PER UNIT) SC SCH ×5 (00:01→23:54)
[2022-06-08] MEDS: RT-ALBUTEROL SULF 2.5 MG/3 ML PRE-MIX VIAL INH SCH ×5 (03:01→21:24)
[2022-06-08] MEDS: RT-IPRATROPIUM (ATROVENT) 0.5MG/2.5ML AMP IH SCH ×5 (03:01→21:24)
[2022-06-08] MEDS: MEROPENEM 500 MG in NS (IVPB) 100 ML IV SCH ×4 (03:47→22:41)
[2022-06-08] MEDS: FUROSEMIDE 40 MG/4 ML INJ (LASIX) IVP SCH (06:03)
[2022-06-08] MEDS: predniSONE 10 MG TAB PO SCH (06:03)
[2022-06-08] MEDS: RT--FLUTICASONE/SALMETEROL 232-14 (AIRDUO RespiCLICK) IH SCH ×2 (07:06→18:38)
[2022-06-08] MEDS: UMECLIDINIUM BROMIDE (INCRUSE ELLIPTA) 7'S IH SCH (07:06)
--- NOTE | 2022-06-08 07:56 | Diagnostic Imaging Report ---
EXAMINATION: Chest 1 view HISTORY: Dyspnea COMPARISON: 06/05/2022 FINDINGS: Heart size is mildly enlarged with prominence of pulmonary vasculature. There are trace bilateral pleural effusions with mild interstitial opacities seen throughout the lungs greatest in the lung bases. No pneumothorax. The osseous structures are intact. IMPRESSION: 1. Stable cardiomegaly with low lung volumes and trace bilateral pleural effusions. Stable interstitial opacities within the lungs. Findings consistent with atelectasis, pulmonary edema or pneumonia. Dictated by: Dictated on workstation # [id number]
[2022-06-08] MEDS ORDERED: NIFEdipine ER 30 MG (PROCARDIA XL) TAB PO SCH (09:00)
[2022-06-08] MEDS: APIXABAN 5 MG (ELIQUIS) TABLET PO SCH ×2 (11:22→20:16)
[2022-06-08] MEDS: ALPRAZolam 1 MG (XANAX) TAB PO SCH ×3 (11:33→20:16)
[2022-06-08] MEDS: MICONAZOLE 2% POWDER (DESENEX AF) 90 GM TOP SCH ×2 (11:40→20:16)
[2022-06-08] MEDS: busPIRone 5 MG (BUSPAR) TAB PO SCH ×2 (11:58→18:01)
--- NOTE | 2022-06-08 13:26 | Cardiology Progress Note ---
Subjective Date Seen by Provider: Jun 08, 2022 Time Seen by Provider: 11:00 Subjective/Events-last exam No acute events overngiht. Reports breathing better. Reports shes feeling better and states she is becoming more ornery. She wants to sit up at the edge of the bed. Focused Exam Time of Focused Exam: 23:00 Objective-Cardiology Exam Last Set of Vital Signs Vital Signs 06/06/22 06/08/22 10:28 11:27 Temp 36.6 Pulse 101 Resp 18 B/P (MAP) 149/76 (100) Pulse Ox 97 O2 Delivery High Flow N/C O2 Flow Rate 10.00 FiO2 45 I&O Intake and Output 06/08/22 00:00 Intake Total 2050 ml Output Total 1770 ml Balance 280 ml Intake Oral 2050 ml Output Urine Total 1770 ml General: Alert, Oriented X3, Cooperative HEENT: Atraumatic Neck: Supple, No Thyromegaly, No LAD, Other (+ JVD~ 12cm above RA. ) Lungs: Other (Decreased BS bilaterally,, + rhonchi and faint wheezing bilaterally; poor air movement) Heart: Normal S1, Normal S2, No Murmurs, Other (Atrial fibrillation) Abdomen: Normal Bowel Sounds, Soft, No Tenderness, No Hepatosplenomegaly, No Masses Extremities: No Clubbing, No Cyanosis, Normal Pulses, Other (1-2+ BLE edema; ) Skin: No Rashes, No Breakdown, No Significant Lesion Neuro: Normal Gait, Normal Speech, Normal Tone, Sensation Intact Psych/Mental Status: Mood NL Results Lab A/P-Cardiology Admission Diagnosis Urosepsis Lactic acidosis Atrial fibrillation Acute respiratory failure Assessment/Plan 81F with hx of obesity hypoventilation syndrome, morbid obesity, AF, urosepsis with E coli bacteremia who presents for evaluation of LE edema and Sob. ## E, coli Urosepsis- cxs sensitive to Gent and carbapenems - cont Meropenem - plan per hospitalist ## Acute respiratory failure (likely combination of CHF + COPD exacerbation + obesity hypoventilation syndrome) - cont suppl O2 - cont with diuresis- transition to lasix 80 iv qd (UOP decreased); BLE edema now 1-2+ - further plans as per ICU-hospitalist team - CXR in AM- shows improved aeration with fluid along R sided fissure ## HTN: BPs 120-150s systolic - d/c nifedipine xl 30mg po qD- pt already on CCB- diltiazem - start lisinopril 10mg po QD ## HFmrEF (systolic dysfunction): - initiate cathy inhibitor; consider transition to entresto in the coming days - start aldactone 25mg po QD and jardiance 10mg po QD - consider ischemic workup as outpt-stress test ## Atrial fibrillation with rapid ventricular response, new onset HRs 80-100s, Target HRs < 115bpm - Cont Dilt 240 po Bid - cont eliquis - cannot tolerate having a KENNETH with cardioversion due to her respiratory failure; conservative management is recommended ## Pulmonary edema, fluid overload probably secondary to aggressive IV fluid with sepsis. - 2D echo was done on May 28, 2022 with four-chamber dilatation, ejection fraction 45 to 50%, severe pulmonary hypertension with PA pressure 50 to 55 mmHg - cont with lasix 80 iv qd and cont fluid restriction of 1.5L - BNP 118, suspect falsely low 2/2 obesity ## Morbid obesity. LAWANDA CORTEZ MD Jun 08, 2022 13:26
[2022-06-08 13:29] LABS: ALBUMIN 3.1 GM/DL (3.2-4.5); BILIRUBIN,TOTAL 0.6 MG/DL (0.1-1.0); CALCIUM 9.7 MG/DL (8.5-10.1); CREATININE SERUM 0.78 MG/DL (0.60-1.30); POTASSIUM 3.7 MMOL/L (3.6-5.0); TOTAL PROTEIN 6.6 GM/DL (6.4-8.2)
--- NOTE | 2022-06-08 13:34 | Progress Note - Hospitalist ---
Subjective HPI/CC On Admission Date Seen by Provider: Jun 08, 2022 81 year old female with PMH of COPD, HTN, PVD, cellulitis, severe obesity, anxiety, and depression presented to the ED yesterday for diffuse pain and difficulty breathing. Per the ED note, she recently had treatment initiated in the out patient setting for cellulitis of her Lower extremities as well as for UTI with macrobid. Upon arrival to the ED patient was tachycardic, tachypnic, febrile, had a WBC elevation of 28.9, and a LA of 3.13. Cefepime was started and while waiting to be admitted for severe sepsis patient was found to be in afib w/ RVR. She received 1 bolus of cardizem in the ED and a cardizem drip was initiated. When seen this morning the patient was markedly wheezing while breathing and extremely sleepy. She is alert to where she is and able to answer simple questions but would fall asleep mid-sentence when trying to obtain a more detailed account of events leading up to presentation. She did reports SOB and tiredness and denied CP, palpitations, abd pain, N/V/D, or abd pain. Subjective/Events-last exam Pt reports feeling better today and breathing easier. Is on 10lpm HFNC at the moment. Wears 3lpm at baseline. I personally weaned down to 5lpm and sats remained above 95%. RN at bedside as well and plan to continue to wean as able. Focused Exam Time of Focused Exam: 23:00 Objective Exam Vital Signs Vital Signs Date Time Temp Pulse Resp B/P (MAP) Pulse Ox O2 Delivery O2 Flow Rate FiO2 06/08/22 11:27 36.6 101 18 149/76 (100) 97 High Flow N/C 10.00 06/06/22 10:28 45 Capillary Refill : Less Than 3 Seconds General Appearance: No Apparent Distress, Chronically ill, Obese Respiratory: Lungs Clear, No Accessory Muscle Use Cardiovascular: Regular Rate, Rhythm, No Murmur Neurologic/Psychiatric: Alert, Oriented x3 Results/Procedures Lab Laboratory Tests 06/08/22 12:58 Patient resulted labs reviewed. Assessment/Plan Assessment and Plan Assess & Plan/Chief Complaint Acute on chronic respiratory failure with hypoxia and hypercapnia Obstructive sleep apnea Obesity hypoventilation syndrome Super obesity Acute on chronic HFpEF BiPAP at night, paperwork submitted for home BiPAP Currently on nasal cannula- I titrated down at bedside- will try to get back to baseline Prednisone Continue Lasix, responding well Decreased to daily dose today MAT protocol Cardiology following Anxiety Continue Xanax Ativan as needed Goals of care discussion Poor prognosis DNR/DNI Hospice/comfort care introduced by Dr Conroy, not planning to pursue at this time Thrombocytopenia- resolved ESBL E coli bactermia Likely UTI Continue Meropenem Atrial fibrillation Cardizem and Eliquis Cardiology following Severe sepsis, resolved Elevated LFTs, resolved Hypokalemia, resolved Hyponatremia, resolved LYN CAVANAUGH MD Jun 08, 2022 13:34
[2022-06-08] MEDS: VALSARTAN 80 MG (DIOVAN) TAB PO SCH (16:51)
[2022-06-09] MEDS: RT-ALBUTEROL SULF 2.5 MG/3 ML PRE-MIX VIAL INH SCH ×5 (02:01→19:01)
[2022-06-09] MEDS: RT-IPRATROPIUM (ATROVENT) 0.5MG/2.5ML AMP IH SCH ×5 (02:01→19:01)
[2022-06-09 04:02] VITALS: BP 128/58
[2022-06-09] MEDS: MEROPENEM 500 MG in NS (IVPB) 100 ML IV SCH ×2 (04:02→10:28)
[2022-06-09] MEDS: inSUlin ASPART (NovoLOG) 1 UNIT/0.01 ML (CHARGE PER UNIT) SC SCH ×3 (05:19→17:50)
[2022-06-09] MEDS: predniSONE 10 MG TAB PO SCH (06:07)
[2022-06-09 07:13] VITALS: BP 129/60
[2022-06-09] MEDS ORDERED: FUROSEMIDE 40 MG/4 ML INJ (LASIX) IVP SCH (09:00)
[2022-06-09] MEDS ORDERED: FAMOTIDINE 20 MG (PEPCID) TABLET PO SCH (09:00)
[2022-06-09] MEDS ORDERED: EMPAGLIFLOZIN 10 MG TABLET (JARDIANCE) PO SCH (09:00)
[2022-06-09] MEDS ORDERED: SPIRONOLACTONE 25 MG (ALDACTONE) TAB PO SCH (09:00)
[2022-06-09] MEDS ORDERED: lisINopril 10 MG (PRINIVIL) TABLET PO SCH (09:00)
[2022-06-09 10:25] LABS: ALBUMIN 3.4 GM/DL (3.2-4.5)
[2022-06-09 10:26] LABS: POTASSIUM 3.8 MMOL/L (3.6-5.0)
[2022-06-09] MEDS: ALPRAZolam 1 MG (XANAX) TAB PO SCH ×2 (10:26→12:17)
[2022-06-09 10:27] LABS: CALCIUM 10.1 MG/DL (8.5-10.1)
[2022-06-09] MEDS: APIXABAN 5 MG (ELIQUIS) TABLET PO SCH (10:27)
[2022-06-09] MEDS: VALSARTAN 80 MG (DIOVAN) TAB PO SCH (10:27)
[2022-06-09 10:28] LABS: TOTAL PROTEIN 7.2 GM/DL (6.4-8.2)
[2022-06-09] MEDS: MICONAZOLE 2% POWDER (DESENEX AF) 90 GM TOP SCH (10:28)
[2022-06-09 10:30] LABS: BILIRUBIN,TOTAL 0.8 MG/DL (0.1-1.0)
[2022-06-09 10:32] LABS: CREATININE SERUM 0.79 MG/DL (0.60-1.30)
[2022-06-09 10:35] LABS: MAGNESIUM 1.9 MG/DL (1.6-2.4)
[2022-06-09] MEDS: busPIRone 5 MG (BUSPAR) TAB PO SCH ×2 (10:41→17:48)
[2022-06-09] MEDS: RT--FLUTICASONE/SALMETEROL 232-14 (AIRDUO RespiCLICK) IH SCH ×2 (10:52→19:02)
[2022-06-09] MEDS ORDERED: DOCUSATE SODIUM 100 MG (COLACE) CAP PO PRN (11:00)
[2022-06-09 11:30] VITALS: BP 133/67
--- NOTE | 2022-06-09 11:35 | Cardiology Progress Note ---
Subjective Date Seen by Provider: Jun 09, 2022 Time Seen by Provider: 11:10 Subjective/Events-last exam No acute events overnight. Pt doing well. Has had -11.6L removed so far during the hospital stay. Notes SOB improved. Asking about when she can go home. Focused Exam Time of Focused Exam: 23:00 Objective-Cardiology Exam Last Set of Vital Signs Vital Signs 06/06/22 06/09/22 06/09/22 10:28 07:13 10:52 Temp 36.6 Pulse 81 Resp 17 B/P (MAP) 129/60 (83) Pulse Ox 95 O2 Delivery High Flow N/C O2 Flow Rate 3.00 FiO2 45 I&O Intake and Output 06/09/22 00:00 Intake Total 3013 ml Output Total 6200 ml Balance -3187 ml Intake Oral 3013 ml Output Urine Total 6200 ml Stool Total 0 ml General: Alert, Oriented X3, Cooperative HEENT: Atraumatic Neck: Supple, No Thyromegaly, No LAD, Other (+ JVD~ 12cm above RA. ) Lungs: Other (Decreased BS bilaterally,, + rhonchi and faint wheezing bilaterally; poor air movement) Heart: Normal S1, Normal S2, No Murmurs, Other (Atrial fibrillation) Abdomen: Normal Bowel Sounds, Soft, No Tenderness, No Hepatosplenomegaly, No Masses Extremities: No Clubbing, No Cyanosis, Normal Pulses, Other (1-2+ BLE edema; ) Skin: No Rashes, No Breakdown, No Significant Lesion Neuro: Normal Gait, Normal Speech, Normal Tone, Sensation Intact Psych/Mental Status: Mood NL Results Lab Laboratory Tests 06/08/22 12:58 06/09/22 10:00 A/P-Cardiology Admission Diagnosis Urosepsis Lactic acidosis Atrial fibrillation Acute respiratory failure Assessment/Plan 81F with hx of obesity hypoventilation syndrome, morbid obesity, AF, urosepsis with E coli bacteremia who presents for evaluation of LE edema and Sob. ## E, coli Urosepsis- cxs sensitive to Gent and carbapenems - cont Meropenem - plan per hospitalist ## Acute respiratory failure (likely combination of CHF + COPD exacerbation + obesity hypoventilation syndrome) - cont suppl O2 - transition to Bumex 2mg IV x 1 today; then transition in AM (06-10-22) to bumex 2mg po BID. BLE edema now stable at 1-2+ - further plans as per ICU-hospitalist team ## HTN: BPs 120-180s systolic - started valsartan 80 qd yesterday in anticipation of change to entresto - increase valsartan to 180 qd. ## HFmrEF (systolic dysfunction): - cont valsartan, consider transition to entresto in the coming days - cont aldactone 25mg po QD and jardiance 10mg po QD - consider ischemic workup as outpt-stress test ## Atrial fibrillation with rapid ventricular response, new onset HRs 80-100s, Target HRs < 115bpm; ECHO demonstrates EF of 45-50% - Cont Dilt 240 po Bid - cont eliquis - cannot tolerate having a KENNETH with cardioversion due to her respiratory failure; conservative management is recommended ## Pulmonary edema, fluid overload probably secondary to aggressive IV fluid with sepsis. - 2D echo was done on May 28, 2022 with four-chamber dilatation, ejection fraction 45 to 50%, severe pulmonary hypertension with PA pressure 50 to 55 mmHg - cont with diuresis as noted above - BNP 118, suspect falsely low 2/2 obesity ## Morbid obesity. LAWANDA CORTEZ MD Jun 09, 2022 11:35
[2022-06-09] MEDS ORDERED: VALSARTAN 80 MG (DIOVAN) TAB PO NR (12:00)
[2022-06-09] MEDS ORDERED: BUMETANIDE 1 MG/4 ML (BUMEX) VIAL IV NR (13:00)
[2022-06-09] MEDS ORDERED: DILT240C91 PO (13:07)
[2022-06-09] MEDS ORDERED: PRED10TA22 PO (13:07)
[2022-06-09] MEDS ORDERED: SPIR25TA5 PO (13:07)
[2022-06-09] MEDS ORDERED: VALS80TA PO (13:07)
[2022-06-09] MEDS ORDERED: APIX5TAB PO (13:07)
[2022-06-09] MEDS ORDERED: BUME2TAB7 PO (13:07)
[2022-06-09] MEDS ORDERED: EMPA10TA PO (13:07)
--- NOTE | 2022-06-09 13:12 | Discharge Inst-Simple/Standard ---
Discharge Inst-Standard Patient Instructions/Follow Up Plan of Care/Instructions/FU: Please continue to take your medications as written. Please follow up with your primary care doctor to follow up this hospital stay. Activity as Tolerated: Yes Discharge Diet: Low Sodium Diet (1500mL fluid restriction daily) Return to The Hospital For: Chest pain, shortness of breath, fever, weakness, if you feel you are getting worse. LYN CAVANAUGH MD Jun 09, 2022 13:12
--- NOTE | 2022-06-09 13:23 | Discharge Summary ---
Diagnosis/Chief Complaint Date of Admission May 27, 2022 at 23:35 Date of Discharge Discharge Date: Jun 09, 2022 Admission Diagnosis Severe sepsis secondary to UTI, Afib w/ RVR Primary Care Elijah Nowak MD Discharge Diagnosis (1) Acute respiratory failure with hypoxia and hypercapnia Status: Acute (2) SAILAJA (obstructive sleep apnea) Status: Acute (3) Obesity hypoventilation syndrome Status: Acute (4) Super obesity Status: Acute (5) E coli bacteremia Status: Acute (6) Infection due to extended spectrum beta-lactamase producing bacteria Status: Acute (7) Anxiety Status: Acute Discharge Summary Discharge Physical Exam Allergies: Coded Allergies: No Known Drug Allergies (Unverified , 05/30/21) Vitals & I&Os Vital Signs Date Time Temp Pulse Resp B/P (MAP) Pulse Ox O2 Delivery O2 Flow Rate FiO2 06/09/22 11:30 36.6 91 18 133/67 (89) 95 High Flow N/C 5.00 06/06/22 10:28 45 Hospital Course Labs (last 24 hrs) Laboratory Tests 06/08/22 17:30: Glucometer 128H 06/08/22 23:52: Glucometer 95 06/09/22 05:07: Glucometer 94 06/09/22 10:00: Sodium Level 141, Potassium Level 3.8, Chloride Level 94L, Carbon Dioxide Level 33H, Anion Gap 14, Blood Urea Nitrogen 23H, Creatinine 0.79, Estimat Glomerular Filtration Rate 75, BUN/Creatinine Ratio 29, Glucose Level 163H, Calcium Level 10.1, Corrected Calcium 10.6H, Magnesium Level 1.9, Total Bilirubin 0.8, Aspartate Amino Transf (AST/SGOT) 39H, Alanine Aminotransferase (ALT/SGPT) 59H, Alkaline Phosphatase 140H, Total Protein 7.2, Albumin 3.4 06/09/22 11:07: Glucometer 171H Microbiology 05/28/22 MRSA Screen - Final, Complete MRSA not isolated 05/27/22 Blood Culture - Final, Complete Escherichia coli 05/27/22 Urine Culture - Final, Complete NO GROWTH Patient resulted labs reviewed. Pending Labs Laboratory Tests 06/09/22 10:00: Sodium Level 141, Potassium Level 3.8, Chloride Level 94, Carbon Dioxide Level 33, Anion Gap 14, Blood Urea Nitrogen 23, Creatinine 0.79, Estimat Glomerular Filtration Rate 75, BUN/Creatinine Ratio 29, Glucose Level 163, Calcium Level 10.1, Corrected Calcium 10.6, Magnesium Level 1.9, Total Bilirubin 0.8, Aspartate Amino Transf (AST/SGOT) 39, Alanine Aminotransferase (ALT/SGPT) 59, Alkaline Phosphatase 140, Total Protein 7.2, Albumin 3.4 06/09/22 11:07: Glucometer 171 Discharge Home Medications: Active Scripts Active Prednisone 10 Mg Tab.ds.pk 10 Mg PO DAILY Take 6 tabs(60mg)daily,decrease by 1 tab(10mg)every other day. Bumetanide 2 Mg Tablet 2 Mg PO BID Jardiance (Empagliflozin) 10 Mg Tablet 10 Mg PO DAILY Spironolactone 25 Mg Tablet 25 Mg PO DAILY Diovan (Valsartan) 80 Mg Tablet 160 Mg PO DAILY Diltiazem 24Hr ER (Diltiazem HCl) 240 Mg Cap.er.24h 240 Mg PO BID Eliquis (Apixaban) 5 Mg Tablet 5 Mg PO BID Reported Fleet Enema (Na Phos,M-B/Na Phos,Di-Ba) 19 Gram-7 Gram/118 Ml Enema 133 Ml RC DAILY PRN Tylenol Arthritis (Acetaminophen) 650 Mg Tablet.er 650 Mg PO Q4H PRN Nitrofurantoin [place]-Mcr 100 mg (Nitrofurantoin Monohyd/M-Cryst) 100 Mg Capsule 100 Mg PO BID START DATE 05-26-2022 #20/ DAY SUPPLY Buspirone HCl 5 Mg Tablet 5 Mg PO 0900,1700 Systane Ultra 0.4-0.3% Eye Drp (Propylene Glycol/Peg 400) 0.3 %-0.4 % Drops 1 Drop OU TID Furosemide 20 Mg Tablet 20 Mg PO DAILY Hydrocodone-Acetamin 7.5-325 (Hydrocodone/Acetaminophen) 7.5 Mg-325 Mg Tablet 1 Each PO Q4H PRN Aspercreme (Trolamine Salicylate) 10 % Cream..g. 1 Applic TP Q6H PRN Albuterol Sulfate 2.5 Mg/0.5 Ml Vial.neb 2.5 Mg INH Q4H PRN Xarelto (Rivaroxaban) 2.5 Mg Tablet 2.5 Mg PO BID Vitamin D3 (Cholecalciferol (Vitamin D3)) 125 Mcg (5000 Unit) Tablet 125 Mcg PO DAILY Symbicort 160-4.5 Mcg Inhaler (Budesonide/Formoterol Fumarate) 160 Mcg-4.5 Mcg/Actuation Hfa.aer.ad 2 Puff IH BID Spiriva Respimat 2.5MCG/ACTUATION (Tiotropium [place]) 2.5 Mcg/Actuation Mist.inhal 2 Puff IH 1500 Amlodipine Besylate 10 Mg Tablet 10 Mg PO HS HOLD FOR SBP <100 OR PULSE 60 Hydrocodone-Acetamin 5-325 mg (Hydrocodone/Acetaminophen) 5 Mg-325 Mg Tablet 1 Tab PO Q6H Hydrochlorothiazide 25 Mg Tablet 25 Mg PO DAILY Escitalopram Oxalate 20 Mg Tablet 20 Mg PO HS Cyclobenzaprine HCl 10 Mg Tablet 10 Mg PO BID Atenolol 100 Mg Tablet 100 Mg PO DAILY HOLD FOR SBP <100 OR PULSE 60 Aspirin 81 Mg Tab.chew 81 Mg PO DAILY Xanax (Alprazolam) 0.25 Mg Tablet 0.25 Mg PO Q6H PRN Instructions to patient/family Please see electronic discharge instructions given to patient. LYN CAVANAUGH MD Jun 09, 2022 13:23
[2022-06-09 15:58] VITALS: BP 98/53
[2022-06-09] MEDS: UMECLIDINIUM BROMIDE (INCRUSE ELLIPTA) 7'S IH SCH (19:03)
[2022-06-09 19:18] VITALS: BP 127/56
[2022-06-09 19:44] VITALS: BP 127/56
[2022-06-10] MEDS ORDERED: VALSARTAN 80 MG (DIOVAN) TAB PO SCH (09:00)
[2022-06-10] MEDS ORDERED: BUMETANIDE 1 MG (BUMEX) TAB PO SCH (09:00)
== END 2022-06-09 19:32 | DRG 871 ==
LOC: EDUNIT# 21:32 → ER 21:33 → ICU 23:35 → 4TH 06-06 13:05
PROVIDERS: ADMIT Internal Medicine; ATTEND Internal Medicine
PROC: 5A09357 Assistance with Respiratory Ventilation, Less than 24 Consecutive Hours, Continuous Positive Airway Pressure (ICD-10-PCS; principal; 2022-05-28)
PROC: 5A0935A Assistance with Respiratory Ventilation, Less than 24 Consecutive Hours, High Flow/Velocity Cannula (ICD-10-PCS; 2022-05-29)
DX: A41.51 Sepsis due to Escherichia coli [E. coli] (principal); I50.33 Acute on chronic diastolic (congestive) heart failure; J96.21 Acute and chronic respiratory failure with hypoxia; J96.22 Acute and chronic respiratory failure with hypercapnia; Z16.12 Extended spectrum beta lactamase (ESBL) resistance; N39.0 Urinary tract infection, site not specified; N17.9 Acute kidney failure, unspecified; E87.20 Acidosis, unspecified; J44.1 Chronic obstructive pulmonary disease with (acute) exacerbation; E66.2 Morbid (severe) obesity with alveolar hypoventilation; Z68.43 Body mass index [BMI] 50.0-59.9, adult; L03.116 Cellulitis of left lower limb; E87.1 Hypo-osmolality and hyponatremia; R65.20 Severe sepsis without septic shock; Z66 Do not resuscitate; I11.0 Hypertensive heart disease with heart failure; D69.6 Thrombocytopenia, unspecified; I27.20 Pulmonary hypertension, unspecified; F41.9 Anxiety disorder, unspecified; F32.A Depression, unspecified; I48.91 Unspecified atrial fibrillation; E87.6 Hypokalemia; E83.42 Hypomagnesemia; I73.9 Peripheral vascular disease, unspecified; Z20.822 Contact with and (suspected) exposure to COVID-19; Z74.01 Bed confinement status; R40.0 Somnolence; H54.7 Unspecified visual loss; Z87.891 Personal history of nicotine dependence; Z79.82 Long term (current) use of aspirin; Z79.01 Long term (current) use of anticoagulants; Z99.81 Dependence on supplemental oxygen
CPT/HCPCS: 36415; 36600; 51702; 71045; 80053; 80202; 81000; 82805; 82947; 83605; 83735; 83880; 84100; 85007; 85025; 85027; 85379; 85384; 85610; 85730; 86022; 87040; 87077; 87081; 87088; 87186; 87636; 93005; 93306; 94640; 94660; 94760; 96361; 96365; 96367

== ENCOUNTER 2023-03-04 22:29 | Emergency (ER) | payer MEDICARE, MEDICAID ==
[~2023-03-04 22:29] MED LIST changes: +ACET-2650 PO; +ALB0.5V INH; +APIX5TAB PO; +BUME2TAB7 PO; +BUSP5TAB59 PO; +DILT240C91 PO; +EMPA10TA PO; +FURO20TA4 PO; +HYDR-3817 PO; +NA P133E22 RC; +NITR100C10 PO; +PRED10TA22 PO; +PROP10DR2 OU; +SPIR25TA5 PO; +TROL85CR37 TP; +VALS80TA PO
[2023-03-04 22:45] LABS: BASOPHILS # (AUTO) 0.1 10^3/uL (0.0-0.1); BASOPHILS % (AUTO) 1 % (0-10); EOSINOPHILS # (AUTO) 0.3 10^3/uL (0.0-0.3); EOSINOPHILS % (AUTO) 2 % (0-10); HEMATOCRIT 28 % (35-52); HEMOGLOBIN 8.8 g/dL (11.5-16.0); LYMPHOCYTES # (AUTO) 0.9 10^3/uL (1.0-4.0); LYMPHOCYTES % (AUTO) 7 % (12-44); MEAN CORPUSCULAR HEMOGLOBIN 28 pg (25-34); MEAN CORPUSCULAR HGB CONC 31 g/dL (32-36); MEAN CORPUSCULAR VOLUME 91 fL (80-99); MEAN PLATELET VOLUME 9.5 fL (9.0-12.2); MONOCYTES % (AUTO) 7 % (0-12); NEUTROPHILS # (AUTO) 10.8 10^3/uL (1.8-7.8); NEUTROPHILS % (AUTO) 82 % (42-75); PLATELET COUNT 432 10^3/uL (130-400); WHITE BLOOD COUNT 13.2 10^3/uL (4.3-11.0)
[2023-03-04] MEDS ORDERED: CEFEPIME INJECTION 1,000 MG in NS (IVPB) 50 ML 50 ML IV ONE (22:45)
[2023-03-04] MEDS ORDERED: LIDOCAINE UROJET 2% GEL 10 ML PKG TOP ONE (22:45)
[2023-03-04] MEDS ORDERED: NS IV 1000 ML 1,000 ML IV SCH ×2 (22:45→23:15)
[2023-03-04 22:54] LABS: ALBUMIN 3.7 GM/DL (3.2-4.5)
[2023-03-04 22:56] LABS: CALCIUM 8.9 MG/DL (8.5-10.1)
[2023-03-04 22:59] LABS: BILIRUBIN,TOTAL 0.4 MG/DL (0.1-1.0)
[2023-03-04 23:00] LABS: CREATININE SERUM 3.28 MG/DL (0.60-1.30)
[2023-03-04 23:01] LABS: INR 1.4 (0.8-1.4); PROTHROMBIN TIME PATIENT 17.4 SEC (12.2-14.7)
[2023-03-04 23:02] LABS: POTASSIUM 6.6 MMOL/L (3.6-5.0)
[2023-03-04 23:03] LABS: MAGNESIUM 2.6 MG/DL (1.6-2.4)
[2023-03-04 23:06] LABS: ERYTHROCYTE SEDIMENTATION RATE 65 MM/HR (0-30)
[2023-03-04] MEDS ORDERED: RT-ALBUTEROL SULF 2.5 MG/3 ML PRE-MIX VIAL INH STA (23:07)
[2023-03-04 23:10] LABS: CREATINE KINASE MB 2.5 NG/ML (<6.6)
[2023-03-04] MEDS ORDERED: DEXTROSE 50% 50 ML (IMS) SYR IV ONE (23:15)
[2023-03-04] MEDS ORDERED: inSUlin (REGULAR) HUMAN 1 UNIT/0.01 ML (CHARGE PER UNIT) IV ONE (23:15)
[2023-03-04] MEDS ORDERED: CALCIUM CHLORIDE 1 GM/10 ML EMERGENCY SYR IV ONE (23:15)
[2023-03-04] MEDS ORDERED: CALCIUM GLUCONATE 1GM IVPB 100 ML IV ONE (23:45)
[2023-03-05] MEDS ORDERED: NS IV 1000 ML 1,000 ML IV SCH
[2023-03-05] MEDS ORDERED: NOREPINEPHRINE 8 MG/250 ML 250 ML IV SCH
--- NOTE | 2023-03-05 00:38 | ED General ---
General Chief Complaint: Respiratory Problems Stated Complaint: POSS UTI/AMS Nursing Triage Note: PT TO RM 3 BY EMS FROM [facility] AND REHAD WITH CC OF DIFFICULITY BREATHING AND UTI. RN AT [facility] STATES PT IS NONCOMPLIANT WITH BIPAP AND REPORTS POOR KIDNEY FUNCTION. PT REPORTS SOA. DENIES CP AT THIS TIME. PT HAS IV IN L HAND PLACED FOR IV ANTIBIOTICS TO TREAT UTI. Source of Information: EMS, Longterm Records, Old Records Exam Limitations: Other (PT IS EXTREMELY POOR HISTORIAN AND UNABLE TO GIVE ANY INFORMATION) History of Present Illness Date Seen by Provider: Mar 04, 2023 Allergies and Home Medications Allergies Coded Allergies: No Known Drug Allergies (Unverified , 05/30/21) Patient Home Medication List Acetaminophen (Tylenol Arthritis) 650 Mg Tablet.er, 650 MG PO Q4H PRN for PAIN- MILD (1-4), (Reported) Entered as Reported by: JUAN CARLOS MONROE on 05/28/22 1235 Albuterol Sulfate (Albuterol Sulfate) 2.5 Mg/0.5 Ml Vial.neb, 2.5 MG INH Q4H PRN for SHORTNESS OF BREATH, (Reported) Entered as Reported by: JUAN CARLOS MONROE on 05/28/22 1235 Alprazolam (Xanax) 0.25 Mg Tablet, 0.25 MG PO Q6H PRN for ANXIETY, (Reported) Entered as Reported by: AMBER PALACIO on 12/02/21 1456 Apixaban (Eliquis) 5 Mg Tablet, 5 MG PO BID Prescribed by: LYN CAVANAUGH on 06/09/22 1307 Aspirin (Aspirin) 81 Mg Tab.chew, 81 MG PO DAILY, (Reported) Entered as Reported by: AMBER PALACIO on 12/02/21 1456 Budesonide/Formoterol Fumarate (Symbicort 160-4.5 Mcg Inhaler) 160 Mcg-4.5 Mcg/Actuation Hfa.aer.ad, 2 PUFF IH BID, (Reported) Entered as Reported by: AMBER PALACIO on 12/02/21 1456 Bumetanide (Bumetanide) 2 Mg Tablet, 2 MG PO BID Prescribed by: LYN CAVANAUGH on 06/09/22 1307 Buspirone HCl (Buspirone HCl) 5 Mg Tablet, 5 MG PO 0900,1700, (Reported) Entered as Reported by: JUAN CARLOS MONROE on 05/28/22 1235 Cholecalciferol (Vitamin D3) (Vitamin D3) 125 Mcg (5000 Unit) Tablet, 125 MCG PO DAILY, (Reported) Entered as Reported by: AMBER PALACIO on 12/02/21 1456 Cyclobenzaprine HCl (Cyclobenzaprine HCl) 10 Mg Tablet, 10 MG PO BID, (Reported) Entered as Reported by: AMBER PALACIO on 12/02/21 1456 Diltiazem HCl (Diltiazem 24Hr ER) 240 Mg Cap.er.24h, 240 MG PO BID Prescribed by: LYN CAVANAUGH on 06/09/22 1307 Empagliflozin (Jardiance) 10 Mg Tablet, 10 MG PO DAILY Prescribed by: LYN CAVANAUGH on 06/09/22 1307 Escitalopram Oxalate (Escitalopram Oxalate) 20 Mg Tablet, 20 MG PO HS, (Reported) Entered as Reported by: AMBER PALACIO on 12/02/21 1456 Hydrocodone/Acetaminophen (Hydrocodone-Acetamin 5-325 mg) 5 Mg-325 Mg Tablet, 1 TAB PO Q6H, (Reported) Entered as Reported by: AMBER PALACIO on 12/02/21 1456 Hydrocodone/Acetaminophen (Hydrocodone-Acetamin 7.5-325) 7.5 Mg-325 Mg Tablet, 1 EACH PO Q4H PRN for PAIN-MODERATE (5-7), (Reported) Entered as Reported by: JUAN CARLOS MONROE on 05/28/22 1235 Na Phos,M-B/Na Phos,Di-Ba (Fleet Enema) 19 Gram-7 Gram/118 Ml Enema, 133 ML RC DAILY PRN for CONSTIPATION, (Reported) Entered as Reported by: JUAN CARLOS MONROE on 05/28/22 1235 Prednisone (Prednisone) 10 Mg Tab.ds.pk, 10 MG PO DAILY Prescribed by: LYN CAVANAUGH on 06/09/22 1307 Propylene Glycol/Peg 400 (Systane Ultra 0.4-0.3% Eye Drp) 0.3 %-0.4 % Drops, 1 DROP OU TID, (Reported) Entered as Reported by: JUAN CARLOS MONROE on 05/28/22 1235 Spironolactone (Spironolactone) 25 Mg Tablet, 25 MG PO DAILY Prescribed by: LYN CAVANAUGH on 06/09/22 1307 Tiotropium [place] (Spiriva Respimat 2.5MCG/ACTUATION) 2.5 Mcg/Actuation Mist.inhal, 2 PUFF IH 1500, (Reported) Entered as Reported by: AMBER PALACIO on 12/02/21 1456 Trolamine Salicylate (Aspercreme) 10 % Cream..g., 1 APPLIC TP Q6H PRN for PAIN- BREAKTHROUGH, (Reported) Entered as Reported by: JUAN CARLOS MONROE on 05/28/22 1235 Valsartan (Diovan) 80 Mg Tablet, 160 MG PO DAILY Prescribed by: LYN CAVANAUGH on 06/09/22 1307 Past Ljsjjsi-[id number]-[id number] Hx Patient Social History Tobacco Use?: No Substance use?: No Alcohol Use?: No Immunizations Up To Date First/Initial COVID19 Vaccinat: OCTOBER 2020 Second COVID19 Vaccination Ramón: DECEMBER 2020 Third COVID19 Vaccination Date: NONE Past Medical History Surgery/Hospitalization HX: BONIFACIO Surgeries: Yes Section, Gallbladder Respiratory: Yes COPD Cardiac: Yes Hypertension, Peripheral Vascular Psychosocial: Yes Depression Integumentary: Yes (Cellulitis of the left lower) Family Medical History No Pertinent Family Hx Physical Exam Vital Signs Vital Signs - First Documented Capillary Refill : Less Than 3 Seconds Height, Weight, BMI Height: '" Weight: lbs. oz. kg; 56.16 BMI Method: Focused Exam Lactate Level 03/04/23 22:35: Lactic Acid Level 1.26 Lactic Acid Level Laboratory Tests Test 03/04/23 22:35 Lactic Acid Level 1.26 MMOL/L (0.50-2.00) Progress/Results/Core Measures Suspected Sepsis SIRS Temperature: Pulse: 71 Respiratory Rate: 18 Laboratory Tests 03/04/23 22:35: White Blood Count 13.2H Blood Pressure 92 /51 Mean: 65 03/04/23 22:35: Lactic Acid Level 1.26 Laboratory Tests 03/04/23 22:35: Creatinine 3.28H, INR Comment 1.4, Platelet Count 432H, Total Bilirubin 0.4 Results/Orders Lab Results Laboratory Tests Test 03/04/23 22:35 11/3/23 00:10 Range/Units White Blood Count 13.2 H 4.3-11.0 10^3/uL Red Blood Count 3.10 L 3.80-5.11 10^6/uL Hemoglobin 8.8 L 11.5-16.0 g/dL Hematocrit 28 L 35-52 % Mean Corpuscular Volume 91 80-99 fL Mean Corpuscular Hemoglobin 28 25-34 pg Mean Corpuscular Hemoglobin Concent 31 L 32-36 g/dL Red Cell Distribution Width 14.4 10.0-14.5 % Platelet Count 432 H 130-400 10^3/uL Mean Platelet Volume 9.5 9.0-12.2 fL Immature Granulocyte % (Auto) 1 % Neutrophils (%) (Auto) 82 H 42-75 % Lymphocytes (%) (Auto) 7 L 12-44 % Monocytes (%) (Auto) 7 0-12 % Eosinophils (%) (Auto) 2 0-10 % Basophils (%) (Auto) 1 0-10 % Neutrophils # (Auto) 10.8 H 1.8-7.8 10^3/uL Lymphocytes # (Auto) 0.9 L 1.0-4.0 10^3/uL Monocytes # (Auto) 1.0 0.0-1.0 10^3/uL Eosinophils # (Auto) 0.3 0.0-0.3 10^3/uL Basophils # (Auto) 0.1 0.0-0.1 10^3/uL Immature Granulocyte # (Auto) 0.2 H 0.0-0.1 10^3/uL Erythrocyte Sedimentation Rate 65 H 0-30 MM/HR Prothrombin Time 17.4 H 12.2-14.7 SEC INR Comment 1.4 0.8-1.4 Activated Partial Thromboplast Time 38 H 24-35 SEC Sodium Level 123 *L 135-145 MMOL/L Potassium Level 6.6 *H 3.6-5.0 MMOL/L Chloride Level 87 L 98-107 MMOL/L Carbon Dioxide Level 21 21-32 MMOL/L Anion Gap 15 H 5-14 MMOL/L Blood Urea Nitrogen 68 H 7-18 MG/DL Creatinine 3.28 H 0.60-1.30 MG/DL Estimat Glomerular Filtration Rate 14 BUN/Creatinine Ratio 21 Glucose Level 111 H 70-105 MG/DL Lactic Acid Level 1.26 0.50-2.00 MMOL/L Calcium Level 8.9 8.5-10.1 MG/DL Corrected Calcium 9.1 8.5-10.1 MG/DL Magnesium Level 2.6 H 1.6-2.4 MG/DL Total Bilirubin 0.4 0.1-1.0 MG/DL Aspartate Amino Transf (AST/SGOT) 31 5-34 U/L Alanine Aminotransferase (ALT/SGPT) 31 0-55 U/L Alkaline Phosphatase 159 H 40-136 U/L Ammonia 33 H 11-32 UMOL/L Total Creatine Kinase 149 29-168 U/L Creatine Kinase MB 2.5 <6.6 NG/ML C-Reactive Protein High Sensitivity 2.25 H 0.00-0.50 MG/DL B-Type Natriuretic Peptide 259.9 H <100.0 PG/ML Total Protein 7.0 6.4-8.2 GM/DL Albumin 3.7 3.2-4.5 GM/DL Lipase 44 8-78 U/L Urine Color YELLOW Urine Clarity SLIGHTLY CLOUDY Urine pH 5.5 5-9 Urine Specific [place] 1.025 H 1.016-1.022 Urine Protein TRACE H NEGATIVE Urine Glucose (UA) NEGATIVE NEGATIVE Urine Ketones NEGATIVE NEGATIVE Urine Nitrite NEGATIVE NEGATIVE Urine Bilirubin NEGATIVE NEGATIVE Urine Urobilinogen 0.2 < = 1.0 MG/DL Urine Leukocyte Esterase 1+ H NEGATIVE Urine RBC (Auto) NEGATIVE NEGATIVE Urine RBC 0-2 /HPF Urine WBC 25-50 H /HPF Urine Crystals NONE /LPF Urine Bacteria FEW H /HPF Urine Casts NONE /LPF Urine Mucus NEGATIVE /LPF Urine Culture Indicated CULTURE PENDING My Orders Orders - GLORIA THOMASON DO Ed Iv/Invasive Line Start (03/04/23 22:32) Ekg Tracing (03/04/23 22:32) Catheter(Urinary) Insert & Ass 03,15 (03/04/23 22:32) O2 (03/04/23 22:32) Monitor-Rhythm Ecg Trace Only (03/04/23 22:32) Chest 1 View, Ap/Pa Only (03/04/23 22:32) Arterial Blood Gas (03/04/23 22:32) Bnp Jason (03/04/23 22:32) Cbc And Automated Diff (03/04/23 22:32) Comprehensive Metabolic Panel (03/04/23:32) Creatine Kinase (03/04/23:32) Creatine Kinase Mb (03/04/23:) Hs C Reactive Protein (03/04/23) Lactic Acid Analyzer (03/04/23) Lipase (03/04/23:32) Magnesium (03/04/23:) Protime With Inr (03/04/23:) Partial Thromboplastin Time (03/04/23:) Ua Culture If Indicated (03/04/23) Erythrocyte Sedimentation Rate (03/04/23:32) Blood Culture (03/04/23:) Sputum Culture (03/04/23) Urine Culture (03/04/23:) Ed Iv/Invasive Line Start (03/04/23:32) Ed Iv/Invasive Line Start (03/04/23:32) Vital Signs Adult Sepsis Patie Q15M (03/04/23:32) O2 (03/04/23:32) Remove Rings In Anticipation O (03/04/23:32) Lidocaine 2% (Urojet) (Lidocaine 2% (Uro (03/04/23 22:45) Ed Iv/Invasive Line Start (03/04/23 22:36) Ns Iv 1000 Ml (Ns Iv 1000 Ml) (03/04/23 22:45) Cefepime Injection (Cefepime Injection) (03/04/23 22:45) D50w (Emergency) Syringe (Dextrose 50% 5 (03/04/23 23:15) Insulin (Regular) Per Unit (Insulin (Reg (03/04/23 23:15) Calcium Chloride 10% Syringe (Calcium Ch (03/04/23 23:15) Albuterol Pre-Mix Nebs (Rt) (Albuterol (03/04/23 23:07) Rt Request For Service (03/04/23 23:07) Svn Small Volume Nebulizer (03/04/23 23:07) Ammonia (03/04/23 23:12) Ed Iv/Invasive Line Start (03/04/23 23:12) Ns Iv 1000 Ml (Ns Iv 1000 Ml) (03/04/23 23:15) Calcium Gluconate 1gm Ivpb (Calcium Gluc (03/04/23 23:45) Ed Iv/Invasive Line Start (03/04/23 23:49) Ns Iv 1000 Ml (Ns Iv 1000 Ml) (03/05/23 00:00) Norepinephrine 8 Mg/250 Ml (Norepinephri (03/05/23 00:00) Covid 19 Inhouse Test (03/05/23 00:38) Influenza A And B By Pcr (03/05/23 00:38) Enoxaparin Injection (Enoxaparin Injecti (03/05/23 01:30) Troponin I Jason (03/05/23 01:37) Medications Given in ED Current Medications Medications Dose Ordered Sig/Barb Route Start Time Stop Time Status Last Admin Dose Admin Calcium Gluconate/ Sodium Chloride 100 ml @ 120 mls/hr ONCE ONCE IV 03/04/23 23:45 03/05/23 00:34 DC 03/04/23 23:54 120 MLS/HR Cefepime HCl 1000 mg/Sodium Chloride 50 ml @ 100 mls/hr ONCE ONCE IV 03/04/23 22:45 03/04/23 23:14 DC 03/04/23 22:45 100 MLS/HR Dextrose 50 ml ONCE ONCE IV 03/04/23 23:15 03/04/23 23:16 DC 03/04/23 23:41 50 ML Insulin Human Regular 10 unit ONCE ONCE IV 03/04/23 23:15 03/04/23 23:16 DC 03/04/23 23:41 10 UNIT Lidocaine HCl 10 ml ONCE ONCE TOP 03/04/23 22:45 03/04/23 22:46 DC 03/05/23 00:15 10 ML Vital Signs/I&O 03/04/23 03/04/23 03/04/23 03/05/23 22:36 22:36 22:36 00:19 Temp 36.6 Pulse 70 71 Resp 18 B/P (MAP) 110/55 (73) 92/51 Pulse Ox 90 90 O2 Delivery Nasal Cannula Nasal Cannula Nasal Cannula O2 Flow Rate 5.00 3.00 5.00 03/05/23 00:21 Pulse Ox 98 O2 Flow Rate 40.00 03/05/23 00:00 Intake Total 1050 ml Balance 1050 ml Capillary Refill : Less Than 3 Seconds Blood Pressure Mean: 65 Departure Impression Primary Impression: Septic shock Additional Impressions: Acute on chronic respiratory failure Acute renal failure Hyponatremia Hyperkalemia Pneumonia UTI (urinary tract infection) Failure of outpatient treatment Morbid obesity Obesity hypoventilation syndrome Departure-Patient Inst. Referrals: TATYANA MON MD (PCP/Family) Primary Care Physician GLORIA THOMASON DO Mar 05, 2023 00:38
[2023-03-05 00:47] LABS: BACTERIA,URINE FEW /HPF; BILIRUBIN,URINE NEGATIVE (NEGATIVE); CLARITY,URINE SLIGHTLY CLOUDY; COLOR,URINE YELLOW; GLUCOSE, URINE (UA) NEGATIVE (NEGATIVE); KETONES,URINE NEGATIVE (NEGATIVE); LEUKOCYTE ESTERASE ,URINE 1+ (NEGATIVE); NITRITE,URINE NEGATIVE (NEGATIVE); PH,URINE 5.5 (5-9); PROTEIN,URINE TRACE (NEGATIVE); RBC,URINE 0-2 /HPF; WBC,URINE 25-50 /HPF
[2023-03-05] MEDS ORDERED: ENOXAPARIN 80 MG/0.8 ML SYRINGE SC ONE (01:30)
[2023-03-05 03:10] VITALS: BP 123/47
--- NOTE | 2023-03-05 08:37 | Diagnostic Imaging Report ---
INDICATION: Sepsis COMPARISON: 06/08/2022 FINDINGS: Single frontal radiographic view of the chest was obtained and demonstrates moderate cardiomegaly and mild prominence of the pulmonary vasculature. There is asymmetric elevation of the right hemidiaphragm with patchy airspace opacity in the right lung base. No large effusion or pneumothorax is seen. Osseous structures show no acute abnormalities. IMPRESSION: 1. Cardiomegaly and mild vascular congestion. 2. Asymmetric elevation of the right hemidiaphragm with probable right basilar atelectasis. Dictated by: Dictated on workstation # [id number]
== END 2023-03-05 03:36 | disposition short-term general hospital (02) ==
LOC: EDUNIT# 22:29 → ER 22:30
DX: J96.20 Acute and chronic respiratory failure, unspecified whether with hypoxia or hypercapnia (principal); R65.21 Severe sepsis with septic shock; N17.9 Acute kidney failure, unspecified; E87.1 Hypo-osmolality and hyponatremia; E87.5 Hyperkalemia; J18.9 Pneumonia, unspecified organism; N39.0 Urinary tract infection, site not specified; E66.2 Morbid (severe) obesity with alveolar hypoventilation; Z53.9 Procedure and treatment not carried out, unspecified reason
CPT/HCPCS: 36415; 51702; 71045; 80053; 81000; 82140; 82550; 82553; 83605; 83690; 83735; 83880; 84484; 85025; 85610; 85652; 85730; 86141; 87040; 87077; 87088; 87186; 87636; 93005; 93041; 94640; 94660